=== PATIENT | female | born 1965 | race Caucasian/White ===

== ENCOUNTER → 2016-02-19 | Outpatient (CLI) | payer MEDICARE ==
[~2016-02-19] MED LIST: /ADVA50050 IN; /AMLO25TA PO; /AUGM875TA OR; /ESOM40CA OR; /ESOM40CA PO; /LOR25TA OR; /MOXI40TA PO; ADVAIR INH; ALBU0.084 INH; ALBU17IN2 INH; ALBUTEROL INH; ALDA25TA PO; ALEV220T26 PO; AMBI10TA OR; AMLO10TA OR; ASPI325T PO; ATEN25TA PO; BISA10SU2 PR; BISAC5TA PO; CALC600T7 PO; COLA100C2 OR; CYCL10TA PO; CYCL5TAB PO; FLEXERIL PO; HYDR25TA6 OR; IBUP60TA PO; IPRASOL4 INH; LEVA750T PO; LEVO500T PO; LISI20TA5 OR; LISI40TAB PO; LOPR50TA OR; LOVA20TA2 OR; MAALSUS PO; MEDR4PAK PO; METH75TA PO; METO25TAB PO; MICR10CA PO; MIRA0.12 PO; MIRALEX PO; MIRAPEX PO; MOXI1TAB PO; NEXI40CA PO; NICO21DI4 TD; NYST50SS SS; OXYC10TA97 OR; OXYC1TAB23 PO; OXYC20TA8 PO; PARO40TA PO; PAXI20TA OR; PERC5TAB8 OR; PERC7.5T8 OR; POTA20TA PO; PRAM0.123 PO; PRED10PA PO; PRED10TA2 PO; PRED20TA PO; PRED20TAB PO; PRED5TA PO; PRIN20TA3 OR; PROA1AER INH; PULM0.5S INH; RISE35TA PO; ROBISYP PO; SALINE NASAL SPRAY; SENO8.6T10 PO; SPIR1CAP INH; SYMB16INH INH; TESS100C PO; VITA10005 PO; VITA500019 PO; ZOLP10TA2 PO; atenolol PO
--- NOTE | 2016-02-29 23:45 | ECWPNPC ---
PATIENT NAME: ERWIN GRULLON : 1965 GENDER: FEMALE VISIT DATE: 02/19/2016 DISCHARGE DATE: 02/19/16 1414 VISIT LOCKED DATE TIME: PHYSICIAN: DILLON GONG RESOURCE: DILLON GONG REASON FOR APPOINTMENT 1. ARMS/LEGS HISTORY OF PRESENT ILLNESS HISTORY OF PRESENT ILLNESS: PAIN THE PATIENT DESCRIBES THE PAIN... FALL RISK SCREENING: SCREENING :NO FALLS IN THE PAST YEAR GENERAL: FIGUEROA IS A 50 Y/O FEMALE WITH A LONG HX OF CHRONIC LBP AND LEFT LEG PAIN.HISTORY OF CHRONIC NARCOTIC PAIN MEDICATION USE.CURRENTLY USING PERCOCET 5/325 ONE TAB Q6H PRN PAIN.ONLY USES MEDICATION FOR SEVERE PAIN EPISODES.RATING PAIN 7/10.USES WHEELCHAIR SINCE AUGUST AFTER ANKLE SURGERY IN AUGUST.HAS NEUROPATHY OF LOWER EXTREMITIES.PAIN IS AGGREVATED WITH COLD WEATHER.HAS TRIALED MULTIPLE PAIN MEDICATIONS BOTH NARCOTIC AND NON NARCOTIC AND HAS SIDE EFFECTS OR NO IMPROVEMENT IN PAIN.FINDS PERCOCET 5/325 MOST EFFECTIVE AND USES IT FOR SEVERE PAIN EPISODES ONLY.HERE FOR ONE MOS F/U.CONTINUES TO FIND PERCOCET EFFECTIVE.DENIES [place] EFFECTS.BRINGS IN HER MEDICATION WHICH IS APPRORIATE FOR WHAT WAS DISPENSED.RATING PAIN VAS 7/10. CURRENT MEDICATIONS TAKING ANUSOL-HC 2.5 % CREAM 1 APPLICATION TO AFFECTED AREA RECTAL NEEDED TAKING CALTRATE 600+D 600-400 MG-UNIT TABLET 1 TAB(S) P.O. ONCE A DAY TAKING DOCQLACE 100 MG CAPSULE 1 CAPSULE NEEDED ORALLY TWICE A DAY TAKING ASPIRIN 325 MG TABLET DELAYED RELEASE 1 TABLET ORALLY ONCE A DAY TAKING SPIRONOLACTONE-HCTZ 25-25 MG TABLET 1 TABLET ORALLY ONCE A DAY TAKING AMLODIPINE 10 MG TABLET 1/2 TAB(S) P.O. ONCE A DAY TAKING NEXIUM 40 MG CAPSULE DELAYED RELEASE 1 CAP(S) P.O. ONCE A DAY TAKING CYCLOBENZAPRINE HCL 10 MG TABLET 1 TABLET P.O. THREE TIMES A DAY TAKING ALEVE 220 MG CAPSULE DIRECTED ORALLY TAKING PRAMIPEXOLE DIHYDROCHLORIDE 0.125 MG TABLET 1 TABLET BEFORE BEDTIME ORALLY 1-6 TABS DAILY TAKING AMBIEN 10 MG TABLET 1 TABLET AT BEDTIME NEEDED ORALLY ONCE A DAY TAKING PAROXETINE HCL 40 MG TABLET 1 TABLET IN THE MORNING ORALLY ONCE A DAY TAKING FLUTICASONE PROPIONATE 50 MCG/ACT SUSPENSION USE 1 2 SPRAYS IN EACH NOSTRIL TWO TIMES A DAY NEEDED CONGESTION NASAL TAKING POLYETHYLENE GLYCOL 3350 - POWDER MIX 1 CAPFUL IN 6 OUNCES OF FLUID ONCE DAILY ORAL ONCE DAILY NEEDED TAKING VITAMIN D 5000IU TABLET 2 TAB(S) P.O. ONCE A DAY TAKING PREDNISONE 50 MG TABLET 1 TABLET ORALLY ONCE DAILY NEEDED TAKING INCRUSE ELLIPTA 62.5 MCG/INH AEROSOL POWDER BREATH ACTIVATED INHALE 1 PUFF BY MOUTH ONCE DAILY INHALATION TAKING VENTOLIN HFA 108 (90 BASE) MCG/ACT AEROSOL SOLUTION INHALE TWO PUFFS BY MOUTH EVERY 4 HOURS NEEDED INHALATION TAKING GABAPENTIN 600 MG TABLET 1 TABLET ORALLY THREE TIMES A DAY TAKING IBUPROFEN 600 MG TABLET 1 TABLET ORALLY THREE TIMES A DAY TAKING MAGNESIUM OXIDE 400 MG CAPSULE 1 CAPSULE NEEDED ORALLY TWICE A DAY TAKING OXYCODONE-ACETAMINOPHEN 5-325 MG TABLET 1 TABLET NEEDED P.O. EVERY 6 HRS MDD4 NOT-TAKING BENZONATATE 100 MG CAPSULE 1 CAPSULE NEEDED ORALLY 1 TO 2 DAILY PRN DISCONTINUED DOXYCYCLINE HYCLATE 100 MG CAPSULE 1 CAPSULE ORALLY EVERY 12 HRS MEDICATION LIST REVIEWED AND RECONCILED WITH THE PATIENT PAST MEDICAL HISTORY HTN GERD B/L ANKLE FRACTURES MULTIPLE RIB FRACTURES DEC 2012 TO PRESENT ASPIRATION PNEUMONIA 05/2011 [place] A SHELL ASPIRATION 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 TRINH IN [place]XIETY CHRONIC PAIN IN ARMS AND LEGS VITAMIN D DEFICIENCY HYPOMAGNESEMIA ALLERGIES CEFTIN: HIVES: ALLERGY SOCIAL HISTORY GENERAL: TOBACCO USE ARE YOU A:CURRENT SMOKER HOW MANY CIGARETTES A DAY DO YOU SMOKE?5 OR LESS HOW SOON AFTER YOU WAKE UP DO YOU SMOKE YOUR FIRST CIGARETTE?6-30 MIN HOW OFTEN DO YOU SMOKE CIGARETTES?EVERY DAY PATIENT COUNSELED ON THE DANGERS OF TOBACCO USE AND URGED TO QUIT: PATIENT COUNCELED ON THE IMPORTENCE OF QUITING. PT. NOT READY TO QUIT AT THIS TIME. ARE YOU INTERESTED IN QUITTING?NOT READY TO QUIT LEARNING BARRIERS / SPECIAL NEEDS ORIENTED TO PLAN OF CARE: PATIENT, PAIN MANAGEMENT PATIENT, ORIENTED TO PLAN OF CARE: PATIENT, PAIN MANAGEMENT PATIENT. NEW PATIENT PAIN DIARY TODAY'S VISITNOTES FROM 0-10, WHAT LEVEL IS YOUR PAIN TODAY?0 PAIN CLINIC PFS, CLERGY, PUBLIC HEALTH REFERRALS PFS REFERRAL NEEDED?NO CLERGY REFERRAL NEEDED?NO PUBLIC HEALTH REFERRAL NEEDED?NO WAS THE PROVIDER NOTIFIED OF ANY PERTINENT INFO?NO PFS REFERRAL NEEDED?NO CLERGY REFERRAL NEEDED?NO PUBLIC HEALTH REFERRAL NEEDED?NO WAS THE PROVIDER NOTIFIED OF ANY PERTINENT INFO?NO REVIEW OF SYSTEMS CONSTITUTIONAL: ANY CHANGE IN YOUR MEDICAL CONDITION? NO . RECENT ILLNESS DENIES . CHILLS NO . FEVER NO . WEIGHT LOSS DENIES . INFECTION: DO YOU HAVE NEW INFECTIONS? NO . DO YOU HAVE HISTORY OF MRSA? NO . MUSCULOSKELETAL: ANY NEW PATTERNS OF PAIN OR NUMBNESS? NO . GASTROENTEROLOGY: ANY NEW CHANGE IN BOWEL CONTROL? NO . GENITOURINARY: ANY NEW CHANGE IN BLADDER CONTROL? NO . IS THERE A CHANCE YOU COULD BE ? NO . HEMATOLOGY/LYMPH: DO YOU TAKE ANY BLOOD THINNERS? (FOR EXAMPLE- COUMADIN, PLAVIX, AGGRENOX, PLATEL, PRADAXA, OR XARELTO) NO . WHEN WAS YOUR LAST DOSE? DATE: TIME: . NEUROLOGY: HAVE YOU FALLEN IN THE PAST 6 MONTHS? YES, A FEW WEEKS AGO. NO INJURY . ANY NEW EXTREMITY NUMBNESS OR WEAKNESS? NO . CARDIOLOGY: DO YOU HAVE A PACEMAKER OR DEFIBRILLATOR? NO . CHEST PAIN DENIES . SHORTNESS OF BREATH DENIES . RESPIRATORY: HAVE YOU BEEN SICK IN THE PAST WEEK? NO . FEVER NO . FLU LIKE SYMPTOMS? NO . COUGH NO, DENIES . SHORTNESS OF BREATH DENIES . INTEGUMENTARY: DO YOU HAVE ANY RASHES OR OPEN SORES? NO . ALLERGIC/IMMUNO: ARE YOU ALLERGIC TO SHELLFISH OR IV DYE? NO . ANY NEW ALLERGIES? NO . PSYCHIATRIC: DO YOU HAVE THOUGHTS OF HURTING YOURSELF OR SOMEONE ELSE? NO . ARE YOU ABUSED, NEGLECTED, OR IN AN UNSAFE ENVIRONMENT? NO . ENDOCRINOLOGY: ARE YOU DIABETIC? NO . OTHER: DO YOU NEED ANY PRESCRIPTIONS? YES . IF YES, PLEASE LIST: ____OXYCODONE . ANY NEW PROBLEMS WITH YOUR MEDICATIONS? NO . WHEN DID YOU LAST EAT? ____ . WHEN DID YOU LAST DRINK? ____ . WHAT DID YOU LAST DRINK? ____ . NAME OF PERSON DRIVING YOU HOME? ____ . DO YOU HAVE ANY OTHER QUESTIONS OR CONCERNS NO . REVIEWED BY: PROVIDER: DILLON OLIVERA . VITAL SIGNS WT 135 LBS, HT 59 IN, BMI 27.26 INDEX, BP 128/69 MM HG, HR 95 /MIN, RR 16 /MIN, TEMP 97.4 F, OXYGEN SAT % 94, NA INITIALS TL 1321, REVIEWED BY: TERRIE. EXAMINATION GENERAL EXAMINATION: HEENT:HEAD:, NORMOCEPHALIC, EYES:, EYES NORMAL, NOSE:, NOSE CLEAR, THROAT: NORMAL. LUNGS:LUNG SOUNDS ARE CLEAR. HEART:HEART RATE REGULAR. ABDOMEN:SOFT AND NOT TENDER, NON-DISTENDED. MUSCULOSKELETAL:*. LUMBAR SACRAL SPINEMUSCLE STRENGTH TESTING 3/5 BILATERAL LOWER EXTREMITIES. PALPATION: POSITIVE FOR PAIN OVER L/S SPINE AND OVER L/S PARASPINALS.. THORACIC SPINENEGATIVE FOR PAIN WITH PALPATION OF THORACIC SPINE. NEGATIVE FOR PAIN WITH PALPATION OF THORACIC PARASPINAL. CERVICALNEGATIVE FOR PAIN WITH PALPATION OF CERVICAL SPINE. NEGATIVE FOR PAIN WITH PALPATION OF CERVICAL PARASPINALS. NEGATIVE FOR PAIN WITH PALPATION OF TRAPEZIUS BILAT. SKIN:NORMAL, NO RASH. NEUROLOGIC EXAM:ALERT AND ORIENTED X 3, DTRS 1-2+ IN ALL 4 EXTREMITIES, DENIES UPPER EXTREMETIES SENSORY LOSS.REPORTS NUMBNESS FROM KNEE TO FEET BILAT.. ASSESSMENTS LUMBAGO WITH SCIATICA, LEFT SIDE - M54.42 (PRIMARY) CHRONIC PRESCRIPTION OPIATE USE - Z79.891 TREATMENT LUMBAGO WITH SCIATICA, LEFT SIDE REFILL OXYCODONE-ACETAMINOPHEN TABLET, 5-325 MG, 1 TABLET NEEDED, P.O., EVERY 6 HRS MDD4, 30 DAY(S), 100, REFILLS 0 NOTES: ISTOP REGISTRY REVIEWED AND DEMNOSTRATES COMPLLIANCE. BRINGS IN MEDICATIONS WHICH IS APPROPRIATE FOR WHAT WAS DISPENSED. URINE TOX TODAY, RISKS AND BENEFITS OF NARCOTIC/OPIOD MEDICATIONS WERE REVIEWED WITH PATIENT - THIS INCLUDES BUT IS NOT LIMITED TO RISK OF DEPENDANCE/DEVELOPMENT OF ADDICTION, MOOD DISTURBANCE AND DEPRESSION, OSTEOPOROSIS, HORMONAL AND LABIDAL CHANGES, RESPIRATORY DEPRESSION AND . PATIENT IS ADVISED NOT TO DRIVE WHILE ON THESE MEDICATIONS. PROCEDURE CODES FA211 ESTABILISHED PATIENT [facility] FACILITY CHARGE G8730 PAIN ASSESS POS TOOL F/U PLAN DOC G8427 DOC MEDS VERIFIED W/PT OR RE FOLLOW UP 2 MONTHS ELECTRONICALLY SIGNED BY JAROD SALDANA ON 02/29/2016 AT 01:31 PM EST DISCLAIMER : THIS IS A VISIT SUMMARY EXTRACTED FROM THE [employer] CHART. IT IS NOT A COPY OF THE [employer] PROGRESS NOTE. MTDD
== END ==
LOC: M PAIN 13:20
PROVIDERS: ATTEND Nurse Practitioner Family
DX: Z09 Encounter for follow-up examination after completed treatment for conditions other than malignant neoplasm (principal); G89.29 Other chronic pain; M54.42 Lumbago with sciatica, left side; M79.605 Pain in left leg; I10 Essential (primary) hypertension; K21.9 Gastro-esophageal reflux disease without esophagitis; J44.9 Chronic obstructive pulmonary disease, unspecified; F17.200 Nicotine dependence, unspecified, uncomplicated; M85.80 Other specified disorders of bone density and structure, unspecified site; G25.81 Restless legs syndrome; F41.9 Anxiety disorder, unspecified; E55.9 Vitamin D deficiency, unspecified; Z88.8 Allergy status to other drugs, medicaments and biological substances; Z79.82 Long term (current) use of aspirin; Z79.1 Long term (current) use of non-steroidal anti-inflammatories (NSAID); Z79.891 Long term (current) use of opiate analgesic; Z79.52 Long term (current) use of systemic steroids; Z79.899 Other long term (current) drug therapy; Z87.898 Personal history of other specified conditions; Z87.81 Personal history of (healed) traumatic fracture; Z87.39 Personal history of other diseases of the musculoskeletal system and connective tissue

== ENCOUNTER → 2016-02-22 | Outpatient (CLI) | payer MEDICARE ==
--- NOTE | 2016-02-22 16:41 | REP ---
MRI LUMBAR SPINE WITHOUT CONTRAST: HISTORY: Back pain. Decreased signal intensity on T2 weighted images is present in the L3-4 through L5-S1 intervertebral discs. The discs are decreased in height. These findings are consistent with disc degeneration. There is no disc bulge or herniation at the L1-2 level. The L1 nerves exit the neural foramina without compression. A diffuse disc bulge is present at the L2-3 level. There is minimal compression of the thecal sac. There is hypertrophy of the posterior articulating facets. The L2 nerves exit the neural foramina without compression. A diffuse disc bulge is present at the L3-4 level. There is hypertrophy of the ligamenta flava and posterior articulating facets. These findings produces minimal central canal stenosis. The L3 nerves exit the neural foramina without compression. A diffuse disc bulge is present at the L4-5 level. There is hypertrophy of the ligamenta flava and posterior articulating facets. These finding produce minimal central canal stenosis. The L4 nerves exit the neural foramina without compression. A diffuse disc bulge is present at the L5-S1 level. This abuts the thecal sac. There is hypertrophy of the posterior articulating facets. The L5 nerves exit the neural foramina without compression. The conus medullaris is normal in appearance terminating at the level of the L1-2 intervertebral discs. Normal signal intensity is present in the lumbar vertebral bodies. IMPRESSION: 1. Diffuse disc bulge at the L2-3 level with minimal thecal sac compression. 2. Minimal central canal stenosis at the L3-4 and L4-5 levels secondary to disc bulge, ligamentous and facet hypertrophy. 3. Diffuse disc bulge at the L5-S1 level. This abuts the thecal sac. Signed by Stephen Jordan MD 02/22/2016 04:49 P
== END ==
LOC: M RAD 12:55
PROVIDERS: ATTEND Nurse Practitioner Family
DX: M51.26 Other intervertebral disc displacement, lumbar region (principal); M51.27 Other intervertebral disc displacement, lumbosacral region; M99.53 Intervertebral disc stenosis of neural canal of lumbar region

== ENCOUNTER → 2016-05-18 | Outpatient (CLI) | payer MEDICARE ==
[~2016-05-18] MED LIST changes: -PARO40TA PO; +PARO40TA2 PO
--- NOTE | 2016-05-25 02:05 | ECWPNPC ---
PATIENT NAME: ERWIN GRULLON : 1965 GENDER: FEMALE VISIT DATE: 05/18/2016 DISCHARGE DATE: 05/18/16 1538 VISIT LOCKED DATE TIME: PHYSICIAN: DILLON GONG RESOURCE: DILLON GONG HISTORY OF PRESENT ILLNESS HISTORY OF PRESENT ILLNESS: PAIN THE PATIENT DESCRIBES THE PAIN... FALL RISK SCREENING: SCREENING :NO FALLS IN THE PAST YEAR GENERAL: FIGUEROA IS A 50 Y/O FEMALE WITH A LONG HX OF CHRONIC LBP AND LEFT LEG PAIN.HISTORY OF CHRONIC NARCOTIC PAIN MEDICATION USE.CURRENTLY USING PERCOCET 5/325 ONE TAB Q6H PRN PAIN.ONLY USES MEDICATION FOR SEVERE PAIN EPISODES.RATING PAIN 7/10.USES WHEELCHAIR SINCE AUGUST AFTER ANKLE SURGERY IN AUGUST.ATTENDING PT THAT JUST STARTED TODAY.HAVING INCREASE IN ANKLE PAIN AFTER PT.HAS NEUROPATHY OF LOWER EXTREMITIES.PAIN IS AGGREVATED WITH COLD WEATHER.HAS TRIALED MULTIPLE PAIN MEDICATIONS BOTH NARCOTIC AND NON NARCOTIC AND HAS SIDE EFFECTS OR NO IMPROVEMENT IN PAIN.FINDS PERCOCET 5/325 MOST EFFECTIVE AND USES IT FOR SEVERE PAIN EPISODES ONLY.HERE FOR ONE MOS F/U.CONTINUES TO FIND PERCOCET EFFECTIVE.DENIES [place] EFFECTS.BRINGS IN HER MEDICATION WHICH IS APPRORIATE FOR WHAT WAS DISPENSED. CURRENT MEDICATIONS TAKING ANUSOL-HC 2.5 % CREAM 1 APPLICATION TO AFFECTED AREA RECTAL NEEDED TAKING CALTRATE 600+D 600-400 MG-UNIT TABLET 1 TAB(S) P.O. ONCE A DAY TAKING DOCQLACE 100 MG CAPSULE 1 CAPSULE NEEDED ORALLY TWICE A DAY TAKING ASPIRIN 325 MG TABLET DELAYED RELEASE 1 TABLET ORALLY ONCE A DAY TAKING SPIRONOLACTONE-HCTZ 25-25 MG TABLET 1 TABLET ORALLY ONCE A DAY TAKING AMLODIPINE 10 MG TABLET 1 TAB P.O. ONCE A DAY TAKING CYCLOBENZAPRINE HCL 10 MG TABLET 1 TABLET P.O. THREE TIMES A DAY TAKING AMBIEN 10 MG TABLET 1 TABLET AT BEDTIME NEEDED ORALLY ONCE A DAY TAKING FLUTICASONE PROPIONATE 50 MCG/ACT SUSPENSION USE 1 2 SPRAYS IN EACH NOSTRIL TWO TIMES A DAY NEEDED CONGESTION NASAL TAKING POLYETHYLENE GLYCOL 3350 - POWDER MIX 1 CAPFUL IN 6 OUNCES OF FLUID ONCE DAILY ORAL ONCE DAILY NEEDED TAKING INCRUSE ELLIPTA 62.5 MCG/INH AEROSOL POWDER BREATH ACTIVATED INHALE 1 PUFF BY MOUTH ONCE DAILY INHALATION TAKING VENTOLIN HFA 108 (90 BASE) MCG/ACT AEROSOL SOLUTION INHALE TWO PUFFS BY MOUTH EVERY 4 HOURS NEEDED INHALATION TAKING GABAPENTIN 600 MG TABLET 1 TABLET ORALLY THREE TIMES A DAY TAKING IBUPROFEN 600 MG TABLET 1 TABLET ORALLY THREE TIMES A DAY TAKING NEXIUM 40 MG CAPSULE DELAYED RELEASE 1 CAP(S) P.O. ONCE A DAY TAKING VITAMIN D 5000IU TABLET 1 TABLET P.O. ONCE A DAY TAKING MAGNESIUM OXIDE 400 MG CAPSULE 1 CAPSULE NEEDED ORALLY TWICE A DAY TAKING METOPROLOL TARTRATE 25 MG TABLET 1 TABLET ORALLY TWICE A DAY TAKING PRAMIPEXOLE DIHYDROCHLORIDE 0.125 MG TABLET 3 TABLET ORALLY THREE TIMES A DAY NEEDED FOR RESTLESS LEGS; MDD#9 TAKING OXYCODONE-ACETAMINOPHEN 5-325 MG TABLET 1 TABLET NEEDED P.O. EVERY 6 HRS MDD4 TAKING PAROXETINE HCL 20 MG TABLET 1 TABLET IN THE MORNING ORALLY ONCE A DAY NOT-TAKING ALEVE 220 MG CAPSULE DIRECTED ORALLY MEDICATION LIST REVIEWED AND RECONCILED WITH THE PATIENT PAST MEDICAL HISTORY HTN GERD B/L ANKLE FRACTURES MULTIPLE RIB FRACTURES DEC 2012 TO PRESENT ASPIRATION PNEUMONIA 05/2011 [place] A SHELL ASPIRATION 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 TRINH IN [place]XIETY CHRONIC PAIN IN ARMS AND LEGS VITAMIN D DEFICIENCY HYPOMAGNESEMIA ALLERGIES CEFTIN: HIVES: ALLERGY SOCIAL HISTORY GENERAL: PAIN CLINIC PFS, CLERGY, PUBLIC HEALTH REFERRALS CLERGY REFERRAL NEEDED?NO WAS THE PROVIDER NOTIFIED OF ANY PERTINENT INFO?NO PFS REFERRAL NEEDED?NO PUBLIC HEALTH REFERRAL NEEDED?NO PATIENT: ____. REVIEW OF SYSTEMS CONSTITUTIONAL: ANY CHANGE IN YOUR MEDICAL CONDITION? NO . CHILLS NO . FEVER NO . INFECTION: DO YOU HAVE NEW INFECTIONS? NO . DO YOU HAVE HISTORY OF MRSA? NO . MUSCULOSKELETAL: ANY NEW PATTERNS OF PAIN OR NUMBNESS? NO . GASTROENTEROLOGY: ANY NEW CHANGE IN BOWEL CONTROL? NO . GENITOURINARY: ANY NEW CHANGE IN BLADDER CONTROL? NO . IS THERE A CHANCE YOU COULD BE ? NO . HEMATOLOGY/LYMPH: DO YOU TAKE ANY BLOOD THINNERS? (FOR EXAMPLE- COUMADIN, PLAVIX, AGGRENOX, PLATEL, PRADAXA, OR XARELTO) NO . WHEN WAS YOUR LAST DOSE? DATE: TIME: . NEUROLOGY: HAVE YOU FALLEN IN THE PAST 6 MONTHS? YES-NO INJURY. . ANY NEW EXTREMITY NUMBNESS OR WEAKNESS? NO . CARDIOLOGY: DO YOU HAVE A PACEMAKER OR DEFIBRILLATOR? NO . RESPIRATORY: HAVE YOU BEEN SICK IN THE PAST WEEK? NO . FEVER NO . FLU LIKE SYMPTOMS? NO . COUGH NO . INTEGUMENTARY: DO YOU HAVE ANY RASHES OR OPEN SORES? NO . ALLERGIC/IMMUNO: ARE YOU ALLERGIC TO SHELLFISH OR IV DYE? NO . ANY NEW ALLERGIES? NO . PSYCHIATRIC: DO YOU HAVE THOUGHTS OF HURTING YOURSELF OR SOMEONE ELSE? NO . ARE YOU ABUSED, NEGLECTED, OR IN AN UNSAFE ENVIRONMENT? NO . ENDOCRINOLOGY: ARE YOU DIABETIC? NO . OTHER: DO YOU NEED ANY PRESCRIPTIONS? YES OXYCODONE . IF YES, PLEASE LIST: ____ . ANY NEW PROBLEMS WITH YOUR MEDICATIONS? NO . WHEN DID YOU LAST EAT? ____ . WHEN DID YOU LAST DRINK? ____ . WHAT DID YOU LAST DRINK? ____ . NAME OF PERSON DRIVING YOU HOME? ____ . DO YOU HAVE ANY OTHER QUESTIONS OR CONCERNS NO . REVIEWED BY: PROVIDER: DILLON OLIVERA . VITAL SIGNS WT 135.0 LBS, HT 59 IN, BMI 27.26 INDEX, BP 142/75 MM HG, HR 108 /MIN, RR 18 /MIN, TEMP 97.9 F, OXYGEN SAT % 94%, NA INITIALS TL 1517, REVIEWED BY: MLF. EXAMINATION GENERAL EXAMINATION: HEENT:HEAD:, NORMOCEPHALIC, EYES:, EYES NORMAL, NOSE:, NOSE CLEAR, THROAT: NORMAL. LUNGS:LUNG SOUNDS ARE CLEAR. HEART:HEART RATE REGULAR. ABDOMEN:SOFT AND NOT TENDER, NON-DISTENDED. MUSCULOSKELETAL:*. LUMBAR SACRAL SPINEMUSCLE STRENGTH TESTING 3/5 BILATERAL LOWER EXTREMITIES. PALPATION: POSITIVE FOR PAIN OVER L/S SPINE AND OVER L/S PARASPINALS.. THORACIC SPINENEGATIVE FOR PAIN WITH PALPATION OF THORACIC SPINE. NEGATIVE FOR PAIN WITH PALPATION OF THORACIC PARASPINAL. CERVICALNEGATIVE FOR PAIN WITH PALPATION OF CERVICAL SPINE. NEGATIVE FOR PAIN WITH PALPATION OF CERVICAL PARASPINALS. NEGATIVE FOR PAIN WITH PALPATION OF TRAPEZIUS BILAT. SKIN:NORMAL, NO RASH. NEUROLOGIC EXAM:ALERT AND ORIENTED X 3, DTRS 1-2+ IN ALL 4 EXTREMITIES, DENIES UPPER EXTREMETIES SENSORY LOSS.REPORTS NUMBNESS FROM KNEE TO FEET BILAT.. ASSESSMENTS LUMBAGO WITH SCIATICA, LEFT SIDE - M54.42 (PRIMARY) CHRONIC PRESCRIPTION OPIATE USE - Z79.891 TREATMENT LUMBAGO WITH SCIATICA, LEFT SIDE REFILL OXYCODONE-ACETAMINOPHEN TABLET, 5-325 MG, 1 TABLET NEEDED, P.O., EVERY 6 HRS MDD4, 30 DAY(S), 100, REFILLS 0 START PERCOCET TABLET, 5-325 MG, 1 TABLET NEEDED, ORALLY, EVERY 6 HRS PRN PAIN MDD4, 30 DAY(S), 100, REFILLS 0 NOTES: ISTOP REGISTRY REVIEWED AND DEMNOSTRATES COMPLLIANCE. BRINGS IN MEDICATIONS WHICH IS APPROPRIATE FOR WHAT WAS DISPENSED. RECENT URINE TOXICOLOGY REVIEWED. NO UNAUTHORIZED MEDICATIONS. NO ILLICIT SUBSTANCES AND PRESCRIBED MEDICATIONS WERE PRESENT. , RISKS AND BENEFITS OF NARCOTIC/OPIOD MEDICATIONS WERE REVIEWED WITH PATIENT - THIS INCLUDES BUT IS NOT LIMITED TO RISK OF DEPENDANCE/DEVELOPMENT OF ADDICTION, MOOD DISTURBANCE AND DEPRESSION, OSTEOPOROSIS, HORMONAL AND LABIDAL CHANGES, RESPIRATORY DEPRESSION AND . PATIENT IS ADVISED NOT TO DRIVE WHILE ON THESE MEDICATIONS. PROCEDURE CODES G8730 PAIN ASSESS POS TOOL F/U PLAN DOC G8427 DOC MEDS VERIFIED W/PT OR RE DISPOSITION & COMMUNICATION FOLLOW UP 2 MONTHS ELECTRONICALLY SIGNED BY JAROD SALDANA ON 05/24/2016 AT 03:59 PM EDT DISCLAIMER : THIS IS A VISIT SUMMARY EXTRACTED FROM THE [employer] CHART. IT IS NOT A COPY OF THE [employer] PROGRESS NOTE. EMILY
== END | disposition home or self-care (01) ==
LOC: M PAIN 14:40
PROVIDERS: ATTEND Nurse Practitioner Family
DX: Z09 Encounter for follow-up examination after completed treatment for conditions other than malignant neoplasm (principal); G89.29 Other chronic pain; M54.42 Lumbago with sciatica, left side; I10 Essential (primary) hypertension; K21.9 Gastro-esophageal reflux disease without esophagitis; J44.9 Chronic obstructive pulmonary disease, unspecified; M85.9 Disorder of bone density and structure, unspecified; G25.81 Restless legs syndrome; F41.9 Anxiety disorder, unspecified; E55.9 Vitamin D deficiency, unspecified; Z87.81 Personal history of (healed) traumatic fracture; Z79.899 Other long term (current) drug therapy; Z79.82 Long term (current) use of aspirin; Z79.51 Long term (current) use of inhaled steroids; Z88.1 Allergy status to other antibiotic agents

== ENCOUNTER → 2016-06-15 | Outpatient (CLI) | payer MEDICARE ==
--- NOTE | 2016-06-15 16:35 | REPMRS ---
Patient History The patient states she had a clinical breast exam in Patient is postmenopausal and is nulliparous. Family history of breast cancer in father at age 50 or over. Taking estrogen for 5 years. Digital Woman Screen Mammo: June 15, 2016 - Exam #: [id number] Bilateral CC and MLO view(s) were taken. Technologist: Beth Cormier, Technologist Prior study comparison: January 20, 2015, digital woman screen mammo performed at [facility]. June 28, 2013, digital woman screen mammo performed at [facility]. FINDINGS: The breast tissue is heterogeneously dense. This may lower the sensitivity of mammography. There has been no change in the appearance of the mammogram from the prior studies. There is a moderate amount of residual fibroglandular tissue which is fairly symmetric. There is no interval development of dominant mass, areas of architectural distortion, or clustered microcalcification typical of malignancy. ASSESSMENT: BI-RADS/ACR category 1 mammogram. Negative. Recommendation Routine screening mammogram in 1 year (for women over age 40). This mammogram was interpreted with the aid of an FDA-approved computer-aided dectection system. Electronically Signed By: Rufino Lynn MD 06/15/16 5424
== END ==
LOC: M WHC 14:48
PROVIDERS: ATTEND Nurse Practitioner Family
DX: Z12.31 Encounter for screening mammogram for malignant neoplasm of breast (principal); Z78.0 Asymptomatic menopausal state; Z80.3 Family history of malignant neoplasm of breast; Z92.89 Personal history of other medical treatment; Z92.23 Personal history of estrogen therapy; Z12.39 Encounter for other screening for malignant neoplasm of breast; Z12.12 Encounter for screening for malignant neoplasm of rectum; Z12.4 Encounter for screening for malignant neoplasm of cervix
CPT/HCPCS: 82270; G0101; G0123; G0202

== ENCOUNTER → 2016-06-15 | Outpatient (REF) | payer MEDICARE | LOC: M SFHCWAGY 15:33 | PROVIDERS: ATTEND Nurse Practitioner Family | DX: Z12.4 Encounter for screening for malignant neoplasm of cervix (principal); Z12.12 Encounter for screening for malignant neoplasm of rectum ==

== ENCOUNTER → 2016-07-18 | Outpatient (CLI) | payer MEDICARE ==
--- NOTE | 2016-07-19 02:13 | ECWPNPC ---
PATIENT NAME: ERWIN GRULLON : 1965 GENDER: FEMALE VISIT DATE: 07/18/2016 DISCHARGE DATE: 07/18/16 1451 VISIT LOCKED DATE TIME: PHYSICIAN: DILLON GONG RESOURCE: DILLON GONG REASON FOR APPOINTMENT 1. FOLLOWUP HISTORY OF PRESENT ILLNESS HISTORY OF PRESENT ILLNESS: PAIN THE PATIENT DESCRIBES THE PAIN... FALL RISK SCREENING: SCREENING :NO FALLS IN THE PAST YEAR GENERAL: FIGUEROA IS A 50 Y/O FEMALE WITH A LONG HX OF CHRONIC LBP AND LEFT LEG PAIN.HISTORY OF CHRONIC NARCOTIC PAIN MEDICATION USE.CURRENTLY USING PERCOCET 5/325 ONE TAB Q6H PRN PAIN.ONLY USES MEDICATION FOR SEVERE PAIN EPISODES.RATING PAIN 7/10.USES WHEELCHAIR SINCE AUGUST AFTER ANKLE SURGERY IN AUGUST.ATTENDING PT THAT JUST STARTED TODAY.HAVING INCREASE IN ANKLE PAIN AFTER PT.HAS NEUROPATHY OF LOWER EXTREMITIES.PAIN IS AGGREVATED WITH COLD WEATHER.HAS TRIALED MULTIPLE PAIN MEDICATIONS BOTH NARCOTIC AND NON NARCOTIC AND HAS SIDE EFFECTS OR NO IMPROVEMENT IN PAIN.FINDS PERCOCET 5/325 MOST EFFECTIVE AND USES IT FOR SEVERE PAIN EPISODES ONLY.HERE FOR ONE MOS F/U.CONTINUES TO FIND PERCOCET EFFECTIVE.DENIES [place] EFFECTS.BRINGS IN HER MEDICATION WHICH IS APPRORIATE FOR WHAT WAS DISPENSED. CURRENT MEDICATIONS TAKING ANUSOL-HC 2.5 % CREAM 1 APPLICATION TO AFFECTED AREA RECTAL NEEDED TAKING CALTRATE 600+D 600-400 MG-UNIT TABLET 1 TAB(S) P.O. ONCE A DAY TAKING DOCQLACE 100 MG CAPSULE 1 CAPSULE NEEDED ORALLY TWICE A DAY TAKING AMLODIPINE 10 MG TABLET 1 TAB P.O. ONCE A DAY TAKING CYCLOBENZAPRINE HCL 10 MG TABLET 1 TABLET P.O. THREE TIMES A DAY TAKING FLUTICASONE PROPIONATE 50 MCG/ACT SUSPENSION USE 1 2 SPRAYS IN EACH NOSTRIL TWO TIMES A DAY NEEDED CONGESTION NASAL TAKING INCRUSE ELLIPTA 62.5 MCG/INH AEROSOL POWDER BREATH ACTIVATED INHALE 1 PUFF BY MOUTH ONCE DAILY INHALATION TAKING VENTOLIN HFA 108 (90 BASE) MCG/ACT AEROSOL SOLUTION INHALE TWO PUFFS BY MOUTH EVERY 4 HOURS NEEDED INHALATION TAKING GABAPENTIN 600 MG TABLET 1 TABLET ORALLY THREE TIMES A DAY TAKING IBUPROFEN 600 MG TABLET 1 TABLET ORALLY THREE TIMES A DAY TAKING VITAMIN D 5000IU TABLET 1 TABLET P.O. ONCE A DAY TAKING MAGNESIUM OXIDE 400 MG CAPSULE 1 CAPSULE NEEDED ORALLY TWICE A DAY TAKING PAROXETINE HCL 20 MG TABLET 1 TABLET IN THE MORNING ORALLY ONCE A DAY TAKING PERCOCET 5-325 MG TABLET 1 TABLET NEEDED ORALLY EVERY 6 HRS PRN PAIN MDD4 TAKING PRAMIPEXOLE DIHYDROCHLORIDE 0.125 MG TABLET 3 TABLET ORALLY THREE TIMES A DAY NEEDED FOR RESTLESS LEGS; MDD#9 TAKING AMBIEN 10 MG TABLET 1 TABLET AT BEDTIME NEEDED ORALLY ONCE A DAY TAKING NICODERM CQ 21 MG/24HR PATCH 24 HOUR 1 PATCH TO SKIN TRANSDERMAL ONCE A DAY TAKING NEXIUM 40 MG CAPSULE DELAYED RELEASE 1 CAP ORALLY ONCE A DAY; ARIEL, BRAND NECESSARY TAKING METOPROLOL TARTRATE 25 MG TABLET 1 TABLET ORALLY TWICE A DAY TAKING OXYCODONE-ACETAMINOPHEN 5-325 MG TABLET 1 TABLET NEEDED P.O. 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 TRINH IN [place] ANXIETY CHRONIC PAIN IN ARMS AND LEGS VITAMIN D DEFICIENCY HYPOMAGNESEMIA ALLERGIES CEFTIN: HIVES: ALLERGY SURGICAL HISTORY CARPAL TUNNEL RELEASE CONNOR 06/03/2009 ENDOSCOPY 04/2011 LEFT KNEE REPLACEMENT LEFT FOOT SURGERY TONSILS REMOVED NOSE SURGERY HOSPITALIZATION/MAJOR DIAGNOSTIC PROCEDURE SURG RELATED REVIEW OF SYSTEMS CONSTITUTIONAL: ANY CHANGE IN YOUR MEDICAL CONDITION? NO . CHILLS NO . FEVER NO . INFECTION: DO YOU HAVE NEW INFECTIONS? NO . DO YOU HAVE HISTORY OF MRSA? NO . MUSCULOSKELETAL: ANY NEW PATTERNS OF PAIN OR NUMBNESS? NO . GASTROENTEROLOGY: ANY NEW CHANGE IN BOWEL CONTROL? NO . GENITOURINARY: ANY NEW CHANGE IN BLADDER CONTROL? NO . IS THERE A CHANCE YOU COULD BE ? NO . HEMATOLOGY/LYMPH: DO YOU TAKE ANY BLOOD THINNERS? (FOR EXAMPLE- COUMADIN, PLAVIX, AGGRENOX, PLATEL, PRADAXA, OR XARELTO) NO . WHEN WAS YOUR LAST DOSE? DATE: TIME: . NEUROLOGY: HAVE YOU FALLEN IN THE PAST 6 MONTHS? NO . ANY NEW EXTREMITY NUMBNESS OR WEAKNESS? NO . CARDIOLOGY: DO YOU HAVE A PACEMAKER OR DEFIBRILLATOR? NO . RESPIRATORY: HAVE YOU BEEN SICK IN THE PAST WEEK? YES, PT STATES SHE IS TAKING LEVAQUIN FOR BRONCHITIS . FEVER NO . FLU LIKE SYMPTOMS? NO . COUGH NO . INTEGUMENTARY: DO YOU HAVE ANY RASHES OR OPEN SORES? NO . ALLERGIC/IMMUNO: ARE YOU ALLERGIC TO SHELLFISH OR IV DYE? NO . ANY NEW ALLERGIES? NO . PSYCHIATRIC: DO YOU HAVE THOUGHTS OF HURTING YOURSELF OR SOMEONE ELSE? NO . ARE YOU ABUSED, NEGLECTED, OR IN AN UNSAFE ENVIRONMENT? NO . ENDOCRINOLOGY: ARE YOU DIABETIC? NO . OTHER: DO YOU NEED ANY PRESCRIPTIONS? NO . IF YES, PLEASE LIST: ____ . ANY NEW PROBLEMS WITH YOUR MEDICATIONS? NO . WHEN DID YOU LAST EAT? ____ . WHEN DID YOU LAST DRINK? ____ . WHAT DID YOU LAST DRINK? ____ . NAME OF PERSON DRIVING YOU HOME? ____ . DO YOU HAVE ANY OTHER QUESTIONS OR CONCERNS NO . REVIEWED BY: PROVIDER: DILLON OLIVERA . VITAL SIGNS WT 144.0 LBS, HT 59 IN, BMI 29.08 INDEX, BP 168/79 MM HG, HR 100 /MIN, RR 18 /MIN, TEMP 97.0 F, OXYGEN SAT % 96%, SAFE IN ENV? (Y/N) Y, NA INITIALS TL 1403, REVIEWED BY: EM. EXAMINATION GENERAL EXAMINATION: HEENT:HEAD:, NORMOCEPHALIC, EYES:, EYES NORMAL, NOSE:, NOSE CLEAR, THROAT: NORMAL. LUNGS:LUNG SOUNDS ARE CLEAR. HEART:HEART RATE REGULAR. ABDOMEN:SOFT AND NOT TENDER, NON-DISTENDED. MUSCULOSKELETAL:*. LUMBAR SACRAL SPINEMUSCLE STRENGTH TESTING 3/5 BILATERAL LOWER EXTREMITIES. PALPATION: POSITIVE FOR PAIN OVER L/S SPINE AND OVER L/S PARASPINALS.. THORACIC SPINENEGATIVE FOR PAIN WITH PALPATION OF THORACIC SPINE. NEGATIVE FOR PAIN WITH PALPATION OF THORACIC PARASPINAL. CERVICALNEGATIVE FOR PAIN WITH PALPATION OF CERVICAL SPINE. NEGATIVE FOR PAIN WITH PALPATION OF CERVICAL PARASPINALS. NEGATIVE FOR PAIN WITH PALPATION OF TRAPEZIUS BILAT. SKIN:NORMAL, NO RASH. NEUROLOGIC EXAM:ALERT AND ORIENTED X 3, DTRS 1-2+ IN ALL 4 EXTREMITIES, DENIES UPPER EXTREMETIES SENSORY LOSS.REPORTS NUMBNESS FROM KNEE TO FEET BILAT.. ASSESSMENTS LUMBAGO WITH SCIATICA, LEFT SIDE - M54.42 (PRIMARY) CHRONIC PRESCRIPTION OPIATE USE - Z79.891 TREATMENT LUMBAGO WITH SCIATICA, LEFT SIDE REFILL PERCOCET TABLET, 5-325 MG, 1 TABLET NEEDED, ORALLY, EVERY 6 HRS PRN PAIN MDD4, 30 DAY(S), 100, REFILLS 0 NOTES: ISTOP REGISTRY REVIEWED AND DEMNOSTRATES COMPLLIANCE. BRINGS IN MEDICATIONS WHICH IS APPROPRIATE FOR WHAT WAS DISPENSED. RECENT URINE TOXICOLOGY REVIEWED. NO UNAUTHORIZED MEDICATIONS. NO ILLICIT SUBSTANCES AND PRESCRIBED MEDICATIONS WERE PRESENT. , RISKS AND BENEFITS OF NARCOTIC/OPIOD MEDICATIONS WERE REVIEWED WITH PATIENT - THIS INCLUDES BUT IS NOT LIMITED TO RISK OF DEPENDANCE/DEVELOPMENT OF ADDICTION, MOOD DISTURBANCE AND DEPRESSION, OSTEOPOROSIS, HORMONAL AND LABIDAL CHANGES, RESPIRATORY DEPRESSION AND . PATIENT IS ADVISED NOT TO DRIVE WHILE ON THESE MEDICATIONS. PROCEDURE CODES FA211 ESTABILISHED PATIENT [facility] FACILITY CHARGE G8938 BMI CALC BUT PT NOT ELIG F/U PLAN G8783 BP SCR PRFRM RCMDD DEFIND SCR INTVL G8730 PAIN ASSESS POS TOOL F/U PLAN DOC 3016F PT SCRND UNHLTHY [place] USE 1123F ACP DISCUSS/DSCN MKR DOCD G8427 DOC MEDS VERIFIED W/PT OR RE 3288F FALL RISK ASSESSMENT DOCD 4004F PT TOBACCO SCREEN RCVD TLK DISPOSITION & COMMUNICATION FOLLOW UP 3 MONTHS ELECTRONICALLY SIGNED BY JAROD SALDANA ON 07/18/2016 AT 05:57 PM EDT DISCLAIMER : THIS IS A VISIT SUMMARY EXTRACTED FROM THE [employer] CHART. IT IS NOT A COPY OF THE [employer] PROGRESS NOTE. MTDD
== END | disposition home or self-care (01) ==
LOC: M PAIN 14:00
PROVIDERS: ATTEND Nurse Practitioner Family
DX: G89.29 Other chronic pain (principal); M54.42 Lumbago with sciatica, left side; I10 Essential (primary) hypertension; J44.9 Chronic obstructive pulmonary disease, unspecified; K21.9 Gastro-esophageal reflux disease without esophagitis; K64.8 Other hemorrhoids; F41.9 Anxiety disorder, unspecified; E55.9 Vitamin D deficiency, unspecified; M85.9 Disorder of bone density and structure, unspecified; Z79.899 Other long term (current) drug therapy; F17.200 Nicotine dependence, unspecified, uncomplicated; Z88.1 Allergy status to other antibiotic agents

== ENCOUNTER → 2016-07-27 | Outpatient (CLI) | payer MEDICARE ==
[2016-07-27 13:36] LABS: MEAN CORPUSCULAR HEMOGLOBIN 19.9 pg (27.0-33.0); MEAN CORPUSCULAR HGB CONC 28.2 g/dl (32.0-36.5); MEAN CORPUSCULAR VOLUME 70.8 fl (80.0-96.0); RED CELL DISTRIBUTION WIDTH 18.1 % (11.5-14.5); WHITE BLOOD COUNT 14.8 K/mm3 (4.0-10.0)
== END ==
LOC: M SMT 10:51
PROVIDERS: ATTEND Family Medicine
DX: D64.9 Anemia, unspecified (principal); E11.9 Type 2 diabetes mellitus without complications

== ENCOUNTER → 2016-08-12 | Outpatient (CLI) | payer MEDICARE ==
[~2016-08-12] MED LIST changes: -LEVA750T PO; +LEVA750T7 PO; -PROA1AER INH; +PROAAER10 INH
[2016-08-12 16:59] LABS: ANION GAP 6 MEQ/L (8-16); BLOOD UREA NITROGEN 7 MG/DL (7-18); CALCIUM LEVEL 9.6 MG/DL (8.5-10.1); CARBON DIOXIDE LEVEL 31 MEQ/L (21-32); CHLORIDE LEVEL 105 MEQ/L (98-107); CREATININE FOR GFR 0.57 MG/DL (0.55-1.02); GLOMERULAR FILTRATION RATE > 60.0 (>51); GLUCOSE, FASTING 121 MG/DL (70-105); POTASSIUM SERUM 4.5 MEQ/L (3.5-5.1); SODIUM LEVEL 142 MEQ/L (136-145)
== END ==
LOC: M SMT 10:49
PROVIDERS: ATTEND Family Medicine
DX: E87.6 Hypokalemia (principal)

== ENCOUNTER → 2016-08-18 | Outpatient (REF) | payer MEDICARE | LOC: M SFHCPLAZ 17:07 | PROVIDERS: ATTEND Family Medicine | DX: E11.9 Type 2 diabetes mellitus without complications (principal) ==

== ENCOUNTER → 2016-10-25 | Outpatient (CLI) | payer MEDICARE ==
[2016-10-25 19:28] LABS: MEAN CORPUSCULAR HEMOGLOBIN 19.1 pg (27.0-33.0); MEAN CORPUSCULAR HGB CONC 27.2 g/dl (32.0-36.5); MEAN CORPUSCULAR VOLUME 70.3 fl (80.0-96.0); RED CELL DISTRIBUTION WIDTH 18.4 % (11.5-14.5); RETIC HEMOGLOBIN CONTENT CHr 21.6 PG (24-36); RETICULOCYTE % 2.1 % (0.5-1.5); WHITE BLOOD COUNT 14.6 K/mm3 (4.0-10.0)
[2016-10-25 19:30] LABS: PERCENT SATURATION 3.6 % (13.2-45.0)
== END ==
LOC: M SMT 14:28
PROVIDERS: ATTEND Family Medicine
DX: D50.9 Iron deficiency anemia, unspecified (principal)

== ENCOUNTER → 2016-11-07 | Outpatient (CLI) | payer MEDICARE ==
--- NOTE | 2016-11-08 00:39 | ECWPNPC ---
PATIENT NAME: ERWIN GRULLON : 1965 GENDER: FEMALE VISIT DATE: 11/07/2016 DISCHARGE DATE: 11/07/16 1229 VISIT LOCKED DATE TIME: PHYSICIAN: DILLON GONG RESOURCE: DILLON GONG REASON FOR APPOINTMENT 1. L FOOT HISTORY OF PRESENT ILLNESS HISTORY OF PRESENT ILLNESS: PAIN THE PATIENT DESCRIBES THE PAIN... FALL RISK SCREENING: SCREENING :NO FALLS IN THE PAST YEAR GENERAL: FIGUEROA IS A 50 Y/O FEMALE WITH A LONG HX OF CHRONIC LBP AND LEFT LEG PAIN.HISTORY OF CHRONIC NARCOTIC PAIN MEDICATION USE.CURRENTLY USING PERCOCET 5/325 ONE TAB Q6H PRN PAIN.ONLY USES MEDICATION FOR SEVERE PAIN EPISODES.RATING PAIN 6/10.HAS NEUROPATHY OF LOWER EXTREMITIES.PAIN IS AGGREVATED WITH COLD WEATHER.HAS TRIALED MULTIPLE PAIN MEDICATIONS BOTH NARCOTIC AND NON NARCOTIC AND HAS SIDE EFFECTS OR NO IMPROVEMENT IN PAIN.FINDS PERCOCET 5/325 MOST EFFECTIVE AND USES IT FOR SEVERE PAIN EPISODES ONLY.HERE FOR 3 MOS F/U.DENIES SIDE EFFECTS.BRINGS IN HER MEDICATION WHICH IS APPRORIATE FOR WHAT WAS DISPENSED. CURRENT MEDICATIONS TAKING ATORVASTATIN CALCIUM 40 MG TABLET 1 TABLET ORALLY ONCE A DAY TAKING FLUTICASONE PROPIONATE 50 MCG/ACT SUSPENSION 2 SPRAY IN EACH NOSTRIL NASAL DAILY TAKING ERGOCALCIFEROL 80894 UNIT CAPSULE 1 CAPSULE ORALLY ONCE A WEEK TAKING ASPIRIN 81 MG TABLET CHEWABLE 1 TABLET ORALLY ONCE A DAY TAKING CYCLOBENZAPRINE HCL 10 MG TABLET 1 TABLET ORALLY THREE TIMES A DAY TAKING VENTOLIN HFA 108 (90 BASE) MCG/ACT AEROSOL SOLUTION INHALE TWO PUFFS INHALATION EVERY 4 HRS NEEDED TAKING AMBIEN 10 MG TABLET 1 TABLET AT BEDTIME NEEDED ORALLY ONCE A DAY TAKING GABAPENTIN 600 MG TABLET 1 TABLET ORALLY THREE TIMES A DAY TAKING PAROXETINE HCL 20 MG TABLET 1 TABLET IN THE MORNING ORALLY ONCE A DAY TAKING MAGNESIUM OXIDE 400 MG CAPSULE 1 CAPSULE NEEDED ORALLY TWICE A DAY TAKING ANUSOL-HC 2.5 % CREAM 1 APPLICATION TO AFFECTED AREA RECTAL NEEDED TAKING CALTRATE 600+D 600-400 MG-UNIT TABLET 1 TAB(S) P.O. ONCE A DAY TAKING DOCQLACE 100 MG CAPSULE 1 CAPSULE NEEDED ORALLY TWICE A DAY TAKING IBUPROFEN 600 MG TABLET 1 TABLET ORALLY THREE TIMES A DAY TAKING PRAMIPEXOLE DIHYDROCHLORIDE 0.125 MG TABLET 3 TABLET ORALLY THREE TIMES A DAY NEEDED FOR RESTLESS LEGS; MDD#9 TAKING NEXIUM 40 MG CAPSULE DELAYED RELEASE 1 CAP ORALLY ONCE A DAY; ARIEL, BRAND NECESSARY TAKING METOPROLOL TARTRATE 25 MG TABLET 1 TABLET ORALLY TWICE A DAY TAKING NICODERM CQ 21 MG/24HR PATCH 24 HOUR 1 PATCH TO SKIN TRANSDERMAL ONCE A DAY TAKING OXYCODONE-ACETAMINOPHEN 5-325 MG TABLET 1 TABLET NEEDED P.O. EVERY 6 HRS MDD4 TAKING FERROUS SULFATE 325 (65 FE) MG TABLET DELAYED RELEASE 1 TABLET ORALLY BID NOT-TAKING INCRUSE ELLIPTA 62.5 MCG/INH AEROSOL POWDER BREATH ACTIVATED INHALE 1 PUFF BY MOUTH ONCE DAILY INHALATION NOT-TAKING AMLODIPINE 10 MG TABLET 1 TAB P.O. ONCE A DAY MEDICATION LIST REVIEWED AND RECONCILED WITH THE PATIENT PAST MEDICAL HISTORY HTN GERD B/L ANKLE FRACTURES MULTIPLE RIB FRACTURES DEC 2012 TO PRESENT ASPIRATION PNEUMONIA 05/2011 PEAN[place] A SHELL ASPIRATION 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 TRINH IN [place] ANXIETY CHRONIC PAIN IN ARMS AND LEGS VITAMIN D DEFICIENCY HYPOMAGNESEMIA ASCVD RISK 17%, 06/2016 ALLERGIES CEFTIN: HIVES: ALLERGY SOCIAL HISTORY GENERAL: TOBACCO USE ARE YOU A:CURRENT SMOKER 1/2 A CIGARETTE DAILY ARE YOU INTERESTED IN QUITTING?THINKING ABOUT QUITTING COUNSELED THE PATIENT ON SMOKING CESSATION, EDUCATION [id number]/15/2017 HOW MANY CIGARETTES A DAY DO YOU SMOKE?5 OR LESS HOW SOON AFTER YOU WAKE UP DO YOU SMOKE YOUR FIRST CIGARETTE?AFTER 60 MIN HOW OFTEN DO YOU SMOKE CIGARETTES?SOME DAYS, BUT NOT EVERY DAY PATIENT COUNSELED ON THE DANGERS OF TOBACCO USE AND URGED TO QUIT:11/07/2016 SMOKING CESSATION INFORMATION GIVEN10/28/2016 BMI CARE GOAL FOLLOW-UP ABOVE NORMAL BMI FOLLOW-UPGIVING ENCOURAGEMENT TO EXERCISE ALCOHOL SCREENING DID YOU HAVE A DRINK CONTAINING ALCOHOL IN THE PAST YEAR?YES HOW OFTEN DID YOU HAVE A DRINK CONTAINING ALCOHOL IN THE PAST YEAR?TWO TO FOUR TIMES A MONTH (2 POINTS) HOW MANY DRINKS DID YOU HAVE ON A TYPICAL DAY WHEN YOU WERE DRINKING IN THE PAST YEAR?1 OR 2 (0 POINTS) HOW OFTEN DID YOU HAVE SIX OR MORE DRINKS ON ONE OCCASION IN THE PAST YEAR?NEVER (0 POINTS) POINTS2 INTERPRETATIONNEGATIVE RECREATIONAL DRUG USE DRUG USE?NO CAFFEINE CAFFEINE USE?YES 4 BEVERAGES DAILY SEXUAL HX HAD SEX IN THE LAST 12 MONTHS (VAGINAL, ORAL, OR ANAL)?NO HAVE YOU EVER HAD AN STD?NO HIV / HEP-C SCREENING HIV TEST OFFERED TO PATIENT:YES DATE OFFERED:07/01/2016 TEST ACCEPTED:NO REASON:PATIENT DECLINED HEP-C TEST OFFERED TO PATIENT:YES DATE OFFERED:07/01/2016 TEST ACCEPTED:NO REASON:PATIENT DECLINED MARITAL STATUS: SINGLE. OTHERS AT HOME: NONE. PETS: 2 CATS. 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 REVIEW OF SYSTEMS REVIEWED BY: PROVIDER: DILLON OLIVERA . CONSTITUTIONAL: ANY CHANGE IN YOUR MEDICAL CONDITION? NO . CHILLS NO . FEVER NO . INFECTION: DO YOU HAVE NEW INFECTIONS? NO . DO YOU HAVE HISTORY OF MRSA? NO . MUSCULOSKELETAL: ANY NEW PATTERNS OF PAIN OR NUMBNESS? NO . GASTROENTEROLOGY: ANY NEW CHANGE IN BOWEL CONTROL? NO . GENITOURINARY: ANY NEW CHANGE IN BLADDER CONTROL? NO . IS THERE A CHANCE YOU COULD BE ? NO . HEMATOLOGY/LYMPH: DO YOU TAKE ANY BLOOD THINNERS? (FOR EXAMPLE- COUMADIN, PLAVIX, AGGRENOX, PLATEL, PRADAXA, OR XARELTO) NO . WHEN WAS YOUR LAST DOSE? DATE: TIME: . NEUROLOGY: HAVE YOU FALLEN IN THE PAST 6 MONTHS? YES FELL WHEN GETTING OUT OF TRUCK THIS PAST WEEKEND . ANY NEW EXTREMITY NUMBNESS OR WEAKNESS? NO . CARDIOLOGY: DO YOU HAVE A PACEMAKER OR DEFIBRILLATOR? NO . RESPIRATORY: HAVE YOU BEEN SICK IN THE PAST WEEK? NO . FEVER NO . FLU LIKE SYMPTOMS? NO . COUGH NO . INTEGUMENTARY: DO YOU HAVE ANY RASHES OR OPEN SORES? NO . ALLERGIC/IMMUNO: ARE YOU ALLERGIC TO SHELLFISH OR IV DYE? NO . ANY NEW ALLERGIES? NO . PSYCHIATRIC: DO YOU HAVE THOUGHTS OF HURTING YOURSELF OR SOMEONE ELSE? NO . ARE YOU ABUSED, NEGLECTED, OR IN AN UNSAFE ENVIRONMENT? NO . ENDOCRINOLOGY: ARE YOU DIABETIC? NO . OTHER: DO YOU NEED ANY PRESCRIPTIONS? NO . IF YES, PLEASE LIST: ____ . ANY NEW PROBLEMS WITH YOUR MEDICATIONS? NO . WHEN DID YOU LAST EAT? ____ . WHEN DID YOU LAST DRINK? ____ . WHAT DID YOU LAST DRINK? ____ . NAME OF PERSON DRIVING YOU HOME? ____ . DO YOU HAVE ANY OTHER QUESTIONS OR CONCERNS NO . VITAL SIGNS WT 130 LBS, HT 59 IN, BMI 26.25 INDEX, BP 179/83 MM HG, HR 85 /MIN, RR 18 /MIN, TEMP 97.6 F, OXYGEN SAT % 93%, NA INITIALS SC 11:46. EXAMINATION GENERAL EXAMINATION: HEENT:HEAD:, NORMOCEPHALIC, EYES:, EYES NORMAL, NOSE:, NOSE CLEAR, THROAT: NORMAL. LUNGS:LUNG SOUNDS ARE CLEAR. HEART:HEART RATE REGULAR. ABDOMEN:SOFT AND NOT TENDER, NON-DISTENDED. MUSCULOSKELETAL:*. LUMBAR SACRAL SPINEMUSCLE STRENGTH TESTING 3/5 BILATERAL LOWER EXTREMITIES. PALPATION: POSITIVE FOR PAIN OVER L/S SPINE AND OVER L/S PARASPINALS.. THORACIC SPINENEGATIVE FOR PAIN WITH PALPATION OF THORACIC SPINE. NEGATIVE FOR PAIN WITH PALPATION OF THORACIC PARASPINAL. CERVICALNEGATIVE FOR PAIN WITH PALPATION OF CERVICAL SPINE. NEGATIVE FOR PAIN WITH PALPATION OF CERVICAL PARASPINALS. NEGATIVE FOR PAIN WITH PALPATION OF TRAPEZIUS BILAT. SKIN:NORMAL, NO RASH. NEUROLOGIC EXAM:ALERT AND ORIENTED X 3, DTRS 1-2+ IN ALL 4 EXTREMITIES, DENIES UPPER EXTREMETIES SENSORY LOSS.REPORTS NUMBNESS FROM KNEE TO FEET BILAT.. ASSESSMENTS LUMBAGO WITH SCIATICA, LEFT SIDE - M54.42 (PRIMARY) CHRONIC PRESCRIPTION OPIATE USE - Z79.891 TREATMENT LUMBAGO WITH SCIATICA, LEFT SIDE REFILL OXYCODONE-ACETAMINOPHEN TABLET, 5-325 MG, 1 TABLET NEEDED, P.O., EVERY 6 HRS MDD4, 30 DAY(S), 100, REFILLS 0 NOTES: ISTOP REGISTRY REVIEWED [id number] AND DEMNOSTRATES COMPLLIANCE. BRINGS IN MEDICATIONS WHICH IS APPROPRIATE FOR WHAT WAS DISPENSED. RECENT URINE TOXICOLOGY REVIEWED. NO UNAUTHORIZED MEDICATIONS. NO ILLICIT SUBSTANCES AND PRESCRIBED MEDICATIONS WERE PRESENT. URINE TOX TODAY, RISKS AND BENEFITS OF NARCOTIC/OPIOD MEDICATIONS WERE REVIEWED WITH PATIENT - THIS INCLUDES BUT IS NOT LIMITED TO RISK OF DEPENDANCE/DEVELOPMENT OF ADDICTION, MOOD DISTURBANCE AND DEPRESSION, OSTEOPOROSIS, HORMONAL AND LABIDAL CHANGES, RESPIRATORY DEPRESSION AND . PATIENT IS ADVISED NOT TO DRIVE WHILE ON THESE MEDICATIONS. PROCEDURE CODES FA211 ESTABILISHED PATIENT [facility] CHARGE G8730 PAIN ASSESS POS TOOL F/U PLAN DOC G8427 DOC MEDS VERIFIED W/PT OR RE DISPOSITION & COMMUNICATION FOLLOW UP 3 MONTHS ELECTRONICALLY SIGNED BY JAROD SALDANA ON 11/07/2016 AT 12:47 PM EDT DISCLAIMER : THIS IS A VISIT SUMMARY EXTRACTED FROM THE [employer] CHART. IT IS NOT A COPY OF THE [employer] PROGRESS NOTE. MEILY
== END ==
LOC: M PAIN 13:30
PROVIDERS: ATTEND Nurse Practitioner Family
DX: M54.42 Lumbago with sciatica, left side (principal); G89.29 Other chronic pain; I10 Essential (primary) hypertension; E11.9 Type 2 diabetes mellitus without complications; D50.9 Iron deficiency anemia, unspecified; E78.5 Hyperlipidemia, unspecified; F17.210 Nicotine dependence, cigarettes, uncomplicated; Z79.891 Long term (current) use of opiate analgesic; Z79.899 Other long term (current) drug therapy; Z79.82 Long term (current) use of aspirin; Z88.1 Allergy status to other antibiotic agents

== ENCOUNTER → 2016-11-16 | Outpatient (CLI) | payer MEDICARE ==
[2016-11-16 18:47] LABS: MEAN CORPUSCULAR HEMOGLOBIN 20.9 pg (27.0-33.0); MEAN CORPUSCULAR HGB CONC 26.9 g/dl (32.0-36.5); MEAN CORPUSCULAR VOLUME 77.9 fl (80.0-96.0); WHITE BLOOD COUNT 12.7 10^3/uL (4.0-10.0)
[2016-11-16 18:58] LABS: RED CELL DISTRIBUTION WIDTH 29.9 % (11.5-14.5)
== END ==
LOC: M SMT 14:59
PROVIDERS: ATTEND Family Medicine
DX: D50.9 Iron deficiency anemia, unspecified (principal)

== ENCOUNTER → 2017-01-26 | Outpatient (REF) | payer MEDICARE, MEDICAID ==
[~2017-01-26] MED LIST changes: +FERR1TAB8 PO; +INCR1INH INH
== END ==
LOC: M SFHCPLAZ 11:29
PROVIDERS: ATTEND Family Medicine
DX: E83.42 Hypomagnesemia (principal)

== ENCOUNTER → 2017-01-26 | Outpatient (CLI) | payer MEDICARE, MEDICAID ==
--- NOTE | 2017-01-26 13:13 | REP ---
PA and lateral chest: Comparisons are 02/26/2015 and 02/08/2015 as well as a chest CT of 04/03/2015. There is diffuse pleural thickening along the right posterolateral chest wall, accompanying multiple old right rib fractures. This is unchanged from 02/26/2015 to 02/01/2015. Multiple rib fractures are identified on the comparison CT with adjacent pleural thickening. There are no acute infiltrates or effusions. Cardiac size is normal. The markus, mediastinum, and bony thorax are otherwise unremarkable. Impression: There are no acute infiltrates or effusions. There are no masses. There is chronic pleural thickening along the posterolateral right chest wall, accompanying multiple old right rib fractures. Signed by Rufino Jin MD 01/26/2017 01:05 P
== END ==
LOC: M SMT 11:49
PROVIDERS: ATTEND Family Medicine
DX: R05 Cough (principal)

== ENCOUNTER → 2017-02-02 | Outpatient (REF) | payer MEDICARE | LOC: M LAB REF 17:02 | PROVIDERS: ATTEND Nurse Practitioner Adult Health | DX: J44.1 Chronic obstructive pulmonary disease with (acute) exacerbation (principal) ==

== ENCOUNTER 2017-02-25 12:08 | Emergency (ER) | payer MEDICARE | END 2017-02-25 14:40 | disposition home or self-care (01) | LOC: M ED 12:08 | DX: J95.09 Other tracheostomy complication (principal); J44.9 Chronic obstructive pulmonary disease, unspecified; I10 Essential (primary) hypertension; K21.9 Gastro-esophageal reflux disease without esophagitis; F17.210 Nicotine dependence, cigarettes, uncomplicated; Z79.899 Other long term (current) drug therapy; Z79.82 Long term (current) use of aspirin; Z79.52 Long term (current) use of systemic steroids; Z88.1 Allergy status to other antibiotic agents | CPT/HCPCS: 71046 ==

== ENCOUNTER → 2017-02-28 | Outpatient (CLI) | payer MEDICARE | LOC: M PLARAD 11:34 | DX: C32.9 Malignant neoplasm of larynx, unspecified (principal) | CPT/HCPCS: 78815 ==

== ENCOUNTER 2017-03-06 05:14 | Inpatient (IN) | payer MEDICARE ==
[2017-03-06] MEDS: VANCOMYCIN HCL 1,000 MG, VIAL MATE ADAPTER 1 EACH in D5W 250 ML IV (06:15)
[2017-03-06 06:41] LABS: BASO # 0.1 10^3/uL (0.0-0.2); BASO % 0.3 % (0.0-1.0); EOS # 0.1 10^3/uL (0.0-0.50); EOS % 0.5 % (0.0-3.0); HEMATOCRIT 38.7 % (36.0-47.0); HEMOGLOBIN 12.5 g/dl (12.0-16.0); IMMATURE GRANULOCYTE # 0.1 10^3/uL (0-0); IMMATURE GRANULOCYTE % 0.6 % (0-0); LYMPH # 1.4 10^3/uL (1.5-4.5); MEAN CORPUSCULAR HGB CONC 32.3 g/dl (32.0-36.5); MEAN CORPUSCULAR VOLUME 86.6 fl (80.0-96.0); MONO # 0.8 10^3/uL (0.0-0.8); MONO % 3.8 % (0.0-5.0); NEUTROPHILS # 17.8 10^3/uL (1.8-7.7); NEUTROPHILS % 87.8 % (36.0-66.0); PLATELET COUNT, AUTOMATED 283 10^3/uL (150-450); RED BLOOD COUNT 4.47 10^6/uL (4.00-5.40); RED CELL DISTRIBUTION WIDTH 14.5 % (11.5-14.5); WHITE BLOOD COUNT 20.2 10^3/uL (4.0-10.0)
[2017-03-06 07:00] LABS: ANION GAP 7 MEQ/L (8-16); BLOOD UREA NITROGEN 12 MG/DL (7-18); CARBON DIOXIDE LEVEL 31 MEQ/L (21-32); CHLORIDE LEVEL 101 MEQ/L (98-107); CREATININE FOR GFR 0.73 MG/DL (0.55-1.02); GLOMERULAR FILTRATION RATE > 60.0 (>51); GLUCOSE, FASTING 99 MG/DL (70-105); SODIUM LEVEL 139 MEQ/L (136-145)
[2017-03-06 07:04] LABS: LACTIC ACID SEPSIS PROTOCOL 1.4 MMOL/L (0.4-2.0)
[2017-03-06] MEDS ORDERED: FORMOTEROL FUMARATE 20 MCG/2 ML INHALATION SOLUTION (PERFOROMIST) INH (08:00)
[2017-03-06] MEDS: PERCOCET 5MG/325MG TAB PO (08:20)
[2017-03-06] MEDS: AZITHROMYCIN INJ 500 MG, VIAL MATE ADAPTER 1 EACH in D5W 250 ML IV (08:20)
[2017-03-06] MEDS: ONDANSETRON 4MG/2ML VIAL (J2405) IV (08:20)
[2017-03-06] MEDS: LevoFLOXacin IV 750 MG in APPROPRIATE DILUENT 1 EA IV (09:20)
[2017-03-06] MEDS ORDERED: zolPIDEM TARTRATE 10MG TAB PO (12:30)
[2017-03-06] MEDS: methylPREDNISolone INJ 125 MG/2 ML VIAL (J2930) IV ×2 (13:35→21:42)
[2017-03-06] MEDS: DOCUSATE SOD LIQ 100MG/10ML UDC PO ×2 (13:37→21:42)
[2017-03-06] MEDS: BUDESONIDE 0.5 MG/2 ML INHALATION SUSPENSION INH ×2 (15:00→15:57)
[2017-03-06] MEDS: MEROPENEM INJ 1 GM in APPROPRIATE DILUENT 1 EA IV ×2 (15:15→21:42)
[2017-03-06] MEDS: CYCLOBENZAPRINE 10 MG TAB PO ×2 (15:48→22:09)
[2017-03-06] MEDS: ASPIRIN 81 MG ENTERIC TAB PO (15:48)
[2017-03-06] MEDS: METOPROLOL TART 25 MG TABLET PO ×2 (15:49→22:10)
[2017-03-06] MEDS: PARoxetine 20 MG TAB PO (15:49)
[2017-03-06] MEDS: PANTOPRAZOLE 40MG TAB (PROTONIX) PO (15:49)
[2017-03-06] MEDS: POTASSIUM CHLORIDE 10 MEQ SR TABLET PO ×2 (15:49→22:10)
[2017-03-06] MEDS: PRAMIPEXOLE (MIRAPEX) 0.125 MG TAB PO ×2 (16:00→21:00)
[2017-03-06] MEDS: GABAPENTIN 300 MG CAP PO ×2 (16:44→22:11)
[2017-03-06] MEDS: DILUENT IV ×2 (17:50→23:35)
[2017-03-06] MEDS: TOBRAMYCIN SULF IV ×2 (17:50→23:35)
[2017-03-06] MEDS: KCL 20MEQ IN 0.45NS 1000ML 1,000 ML IV (17:50)
[2017-03-06] MEDS: VANCOMYCIN HCL 500 MG in D5W MINI-BAG PLUS 100 ML IV (18:37)
[2017-03-06] MEDS: NICOTINE 21MG/24HR 1 EA TRANSDERMAL TD (21:45)
[2017-03-07] MEDS: PERCOCET 5MG/325MG TAB PO ×2 (01:11→21:10)
[2017-03-07] MEDS: IPRATROPIUM 0.5MG/ALBUTEROL 2.5MG INH SOL UD 3ML (DUONEB)(J7620) INH ×2 (04:11→07:22)
[2017-03-07 05:51] LABS: HEMATOCRIT 35.2 % (36.0-47.0); HEMOGLOBIN 11.1 g/dl (12.0-16.0); MEAN CORPUSCULAR HEMOGLOBIN 27.4 pg (27.0-33.0); MEAN CORPUSCULAR HGB CONC 31.5 g/dl (32.0-36.5); MEAN CORPUSCULAR VOLUME 86.9 fl (80.0-96.0); PLATELET COUNT, AUTOMATED 236 10^3/uL (150-450); RED BLOOD COUNT 4.05 10^6/uL (4.00-5.40); RED CELL DISTRIBUTION WIDTH 14.1 % (11.5-14.5); WHITE BLOOD COUNT 7.7 10^3/uL (4.0-10.0)
[2017-03-07 06:21] LABS: ANION GAP 9 MEQ/L (8-16); BLOOD UREA NITROGEN 9 MG/DL (7-18); CALCIUM LEVEL 9.3 MG/DL (8.5-10.1); CARBON DIOXIDE LEVEL 30 MEQ/L (21-32); CHLORIDE LEVEL 100 MEQ/L (98-107); CREATININE FOR GFR 0.51 MG/DL (0.55-1.02); GLOMERULAR FILTRATION RATE > 60.0 (>51); GLUCOSE, FASTING 135 MG/DL (70-100); POTASSIUM SERUM 4.3 MEQ/L (3.5-5.1); SODIUM LEVEL 139 MEQ/L (136-145)
[2017-03-07] MEDS: KCL 20MEQ IN 0.45NS 1000ML 1,000 ML IV ×2 (06:35→15:49)
[2017-03-07] MEDS: VANCOMYCIN HCL 500 MG in D5W MINI-BAG PLUS 100 ML IV ×2 (06:35→18:08)
[2017-03-07] MEDS: MEROPENEM INJ 1 GM in APPROPRIATE DILUENT 1 EA IV ×2 (06:35→14:41)
[2017-03-07] MEDS: BUDESONIDE 0.5 MG/2 ML INHALATION SUSPENSION INH ×2 (07:22→20:33)
[2017-03-07] MEDS: POTASSIUM CHLORIDE 10 MEQ SR TABLET PO ×2 (09:00→21:00)
[2017-03-07] MEDS: METOPROLOL TART 25 MG TABLET PO ×2 (09:00→21:00)
[2017-03-07] MEDS: PARoxetine 20 MG TAB PO (09:00)
[2017-03-07] MEDS: GABAPENTIN 300 MG CAP PO ×3 (09:00→21:00)
[2017-03-07] MEDS: ASPIRIN 81 MG ENTERIC TAB PO (09:00)
[2017-03-07] MEDS: PANTOPRAZOLE 40MG TAB (PROTONIX) PO (09:00)
[2017-03-07] MEDS: PRAMIPEXOLE (MIRAPEX) 0.125 MG TAB PO ×3 (09:00→21:00)
[2017-03-07] MEDS: CYCLOBENZAPRINE 10 MG TAB PO ×2 (09:00→21:10)
[2017-03-07] MEDS: DOCUSATE SOD LIQ 100MG/10ML UDC PO ×2 (09:00→21:00)
[2017-03-07] MEDS: TOBRAMYCIN SULF IV ×2 (09:10→15:49)
[2017-03-07] MEDS: DILUENT IV ×2 (09:10→15:49)
[2017-03-07] MEDS: ENOXAPARIN 40 MG/0.4 ML SYRINGE (J1650) SC (09:12)
[2017-03-07] MEDS: methylPREDNISolone INJ 125 MG/2 ML VIAL (J2930) IV (09:12)
[2017-03-07] MEDS: GOLYTELY SOLN 4000 ML BTL PO (14:00)
[2017-03-07 15:49] LABS: TOBRAMYCIN LEVEL TROUGH 0.8 MCG/ML (0.0-2.0)
[2017-03-07 17:59] LABS: VANCOMYCIN LEVEL TROUGH 6.4 UG/ML (10.0-20.0)
[2017-03-07 18:00] LABS: TOBRAMYCIN LEVEL PEAK 3.2 MCG/ML (3.0-10.0)
[2017-03-08] MEDS: NICOTINE 21MG/24HR 1 EA TRANSDERMAL TD ×2 (00:01→20:21)
[2017-03-08] MEDS: MEROPENEM INJ 1 GM in APPROPRIATE DILUENT 1 EA IV ×4 (00:02→23:03)
[2017-03-08] MEDS: methylPREDNISolone INJ 125 MG/2 ML VIAL (J2930) IV ×3 (00:02→20:19)
[2017-03-08] MEDS: DILUENT IV ×3 (00:43→16:03)
[2017-03-08] MEDS: TOBRAMYCIN SULF IV ×3 (00:43→16:03)
[2017-03-08] MEDS: VANCOMYCIN HCL 750 MG, VIAL MATE ADAPTER 1 EACH in D5W 250 ML IV ×2 (02:16→10:39)
[2017-03-08] MEDS: MORPHINE 2 MG/ML 1ML SYRINGE IV ×4 (04:25→20:23)
[2017-03-08] MEDS: KCL 20MEQ IN 0.45NS 1000ML 1,000 ML IV ×2 (06:09→14:07)
[2017-03-08 06:35] LABS: HEMATOCRIT 33.9 % (36.0-47.0); MEAN CORPUSCULAR HEMOGLOBIN 27.6 pg (27.0-33.0); MEAN CORPUSCULAR HGB CONC 32.4 g/dl (32.0-36.5); MEAN CORPUSCULAR VOLUME 85.2 fl (80.0-96.0); PLATELET COUNT, AUTOMATED 264 10^3/uL (150-450); RED BLOOD COUNT 3.98 10^6/uL (4.00-5.40); RED CELL DISTRIBUTION WIDTH 14.2 % (11.5-14.5); WHITE BLOOD COUNT 14.2 10^3/uL (4.0-10.0)
[2017-03-08 06:52] LABS: ANION GAP 6 MEQ/L (8-16); BLOOD UREA NITROGEN 7 MG/DL (7-18); CALCIUM LEVEL 9.4 MG/DL (8.5-10.1); CARBON DIOXIDE LEVEL 31 MEQ/L (21-32); CHLORIDE LEVEL 102 MEQ/L (98-107); CREATININE FOR GFR 0.41 MG/DL (0.55-1.02); GLOMERULAR FILTRATION RATE > 60.0 (>51); GLUCOSE, FASTING 117 MG/DL (70-100); POTASSIUM SERUM 3.9 MEQ/L (3.5-5.1); SODIUM LEVEL 139 MEQ/L (136-145)
[2017-03-08] MEDS ORDERED: PROPOFOL 200 MG/20 ML VIAL As Ordered ×2 (06:53→12:19)
[2017-03-08] MEDS ORDERED: LIDOCAINE 2% MDV 20 ML VIAL As Ordered (06:53)
[2017-03-08] MEDS: BUDESONIDE 0.5 MG/2 ML INHALATION SUSPENSION INH ×2 (08:00→21:24)
[2017-03-08] MEDS: DOCUSATE SOD LIQ 100MG/10ML UDC PO ×2 (09:38→20:19)
[2017-03-08] MEDS: POTASSIUM CHLORIDE 10 MEQ SR TABLET PO ×2 (10:28→20:19)
[2017-03-08] MEDS: CYCLOBENZAPRINE 10 MG TAB PO ×2 (10:28→22:19)
[2017-03-08] MEDS: METOPROLOL TART 25 MG TABLET PO ×2 (10:28→20:21)
[2017-03-08] MEDS: GABAPENTIN 300 MG CAP PO ×3 (10:29→20:20)
[2017-03-08] MEDS: ENOXAPARIN 40 MG/0.4 ML SYRINGE (J1650) SC (10:29)
[2017-03-08] MEDS: PANTOPRAZOLE 40MG TAB (PROTONIX) PO (10:29)
[2017-03-08] MEDS: PRAMIPEXOLE (MIRAPEX) 0.125 MG TAB PO ×3 (10:29→20:19)
[2017-03-08] MEDS: PARoxetine 20 MG TAB PO (10:29)
[2017-03-08] MEDS: ASPIRIN 81 MG ENTERIC TAB PO (10:30)
[2017-03-08] MEDS: PERCOCET 5MG/325MG TAB PO (14:08)
[2017-03-08 17:57] LABS: VANCOMYCIN LEVEL TROUGH 21.2 UG/ML (10.0-20.0)
[2017-03-08] MEDS: IPRATROPIUM 0.5MG/ALBUTEROL 2.5MG INH SOL UD 3ML (DUONEB)(J7620) INH (21:23)
[2017-03-08] MEDS: VANCOMYCIN HCL 500 MG in D5W MINI-BAG PLUS 100 ML IV (23:03)
[2017-03-09] MEDS: TOBRAMYCIN SULF IV ×4 (00:04→23:38)
[2017-03-09] MEDS: DILUENT IV ×4 (00:04→23:38)
[2017-03-09] MEDS: MORPHINE 2 MG/ML 1ML SYRINGE IV (04:49)
[2017-03-09] MEDS: MEROPENEM INJ 1 GM in APPROPRIATE DILUENT 1 EA IV ×3 (06:08→22:11)
[2017-03-09] MEDS: KCL 20MEQ IN 0.45NS 1000ML 1,000 ML IV ×2 (06:23→13:32)
[2017-03-09 06:28] LABS: HEMATOCRIT 35.7 % (36.0-47.0); HEMOGLOBIN 11.7 g/dl (12.0-16.0); MEAN CORPUSCULAR HEMOGLOBIN 28.2 pg (27.0-33.0); MEAN CORPUSCULAR HGB CONC 32.8 g/dl (32.0-36.5); PLATELET COUNT, AUTOMATED 261 10^3/uL (150-450); RED BLOOD COUNT 4.15 10^6/uL (4.00-5.40); RED CELL DISTRIBUTION WIDTH 14.4 % (11.5-14.5); WHITE BLOOD COUNT 9.7 10^3/uL (4.0-10.0)
[2017-03-09 06:47] LABS: ANION GAP 5 MEQ/L (8-16); BLOOD UREA NITROGEN 10 MG/DL (7-18); CALCIUM LEVEL 9.3 MG/DL (8.5-10.1); CARBON DIOXIDE LEVEL 31 MEQ/L (21-32); CHLORIDE LEVEL 103 MEQ/L (98-107); CREATININE FOR GFR 0.39 MG/DL (0.55-1.02); GLOMERULAR FILTRATION RATE > 60.0 (>51); GLUCOSE, FASTING 106 MG/DL (70-100); POTASSIUM SERUM 3.6 MEQ/L (3.5-5.1); SODIUM LEVEL 139 MEQ/L (136-145)
[2017-03-09] MEDS: PERCOCET 5MG/325MG TAB PO ×2 (08:31→15:27)
[2017-03-09] MEDS: methylPREDNISolone INJ 125 MG/2 ML VIAL (J2930) IV (08:31)
[2017-03-09] MEDS: PRAMIPEXOLE (MIRAPEX) 0.125 MG TAB PO ×3 (08:32→20:58)
[2017-03-09] MEDS: ENOXAPARIN 40 MG/0.4 ML SYRINGE (J1650) SC (08:32)
[2017-03-09] MEDS: VANCOMYCIN HCL 500 MG in D5W MINI-BAG PLUS 100 ML IV ×3 (08:32→23:38)
[2017-03-09] MEDS: POTASSIUM CHLORIDE 10 MEQ SR TABLET PO ×2 (08:33→21:00)
[2017-03-09] MEDS: GABAPENTIN 300 MG CAP PO ×3 (08:33→20:59)
[2017-03-09] MEDS: PARoxetine 20 MG TAB PO (08:33)
[2017-03-09] MEDS: DOCUSATE SOD LIQ 100MG/10ML UDC PO ×2 (08:33→20:58)
[2017-03-09] MEDS: CYCLOBENZAPRINE 10 MG TAB PO ×2 (08:34→21:01)
[2017-03-09] MEDS: METOPROLOL TART 25 MG TABLET PO ×2 (08:34→21:00)
[2017-03-09] MEDS: BUDESONIDE 0.5 MG/2 ML INHALATION SUSPENSION INH ×2 (09:05→20:51)
[2017-03-09] MEDS: GOLYTELY SOLN 4000 ML BTL PO (10:49)
[2017-03-09] MEDS: PANTOPRAZOLE 40MG INJ (PROTONIX) (C9113) IV (11:31)
[2017-03-09 15:34] LABS: TOBRAMYCIN LEVEL TROUGH 1.2 MCG/ML (0.0-2.0)
[2017-03-09 17:56] LABS: TOBRAMYCIN LEVEL PEAK 3.4 MCG/ML (3.0-10.0)
[2017-03-09] MEDS: IPRATROPIUM 0.5MG/ALBUTEROL 2.5MG INH SOL UD 3ML (DUONEB)(J7620) INH (20:51)
[2017-03-09] MEDS: predniSONE 20 MG TAB PO (21:00)
[2017-03-09] MEDS: NICOTINE 21MG/24HR 1 EA TRANSDERMAL TD (21:02)
[2017-03-09] MEDS: ONDANSETRON 4MG/2ML VIAL (J2405) IV (21:37)
[2017-03-10] MEDS: MORPHINE 2 MG/ML 1ML SYRINGE IV (03:51)
[2017-03-10 05:54] LABS: HEMATOCRIT 39.2 % (36.0-47.0); HEMOGLOBIN 12.6 g/dl (12.0-16.0); MEAN CORPUSCULAR HGB CONC 32.1 g/dl (32.0-36.5); MEAN CORPUSCULAR VOLUME 87.1 fl (80.0-96.0); PLATELET COUNT, AUTOMATED 233 10^3/uL (150-450); RED CELL DISTRIBUTION WIDTH 14.4 % (11.5-14.5); WHITE BLOOD COUNT 11.7 10^3/uL (4.0-10.0)
[2017-03-10 06:13] LABS: ANION GAP 9 MEQ/L (8-16); BLOOD UREA NITROGEN 12 MG/DL (7-18); CALCIUM LEVEL 8.7 MG/DL (8.5-10.1); CARBON DIOXIDE LEVEL 31 MEQ/L (21-32); CHLORIDE LEVEL 103 MEQ/L (98-107); GLOMERULAR FILTRATION RATE > 60.0 (>51); GLUCOSE, FASTING 84 MG/DL (70-100); POTASSIUM SERUM 3.5 MEQ/L (3.5-5.1); SODIUM LEVEL 143 MEQ/L (136-145); VANCOMYCIN LEVEL TROUGH 15.3 UG/ML (10.0-20.0)
[2017-03-10] MEDS: MEROPENEM INJ 1 GM in APPROPRIATE DILUENT 1 EA IV ×3 (06:16→22:46)
[2017-03-10] MEDS: BUDESONIDE 0.5 MG/2 ML INHALATION SUSPENSION INH ×2 (07:28→20:07)
[2017-03-10] MEDS ORDERED: LIDOCAINE 2% INJ 100 MG/5 ML SDV (FOR ANES.) As Ordered (07:59)
[2017-03-10] MEDS ORDERED: PROPOFOL 200 MG/20 ML VIAL As Ordered (07:59)
[2017-03-10] MEDS: LR 1,000 ML IV (09:00)
[2017-03-10] MEDS ORDERED: fentaNYL 100 MCG/2 ML INJECTION (J3010) IV (09:00)
[2017-03-10] MEDS ORDERED: ONDANSETRON 4MG/2ML VIAL (J2405) IV (09:00)
[2017-03-10] MEDS: PANTOPRAZOLE 40MG INJ (PROTONIX) (C9113) IV (09:47)
[2017-03-10] MEDS: DOCUSATE SOD LIQ 100MG/10ML UDC PO ×2 (09:47→22:45)
[2017-03-10] MEDS: ENOXAPARIN 40 MG/0.4 ML SYRINGE (J1650) SC (09:48)
[2017-03-10] MEDS: VANCOMYCIN HCL 500 MG in D5W MINI-BAG PLUS 100 ML IV (09:48)
[2017-03-10] MEDS: CYCLOBENZAPRINE 10 MG TAB PO ×2 (09:49→22:42)
[2017-03-10] MEDS: GABAPENTIN 300 MG CAP PO ×3 (09:49→22:43)
[2017-03-10] MEDS: POTASSIUM CHLORIDE 10 MEQ SR TABLET PO ×2 (09:49→22:43)
[2017-03-10] MEDS: predniSONE 20 MG TAB PO (09:49)
[2017-03-10] MEDS: PARoxetine 20 MG TAB PO (09:50)
[2017-03-10] MEDS: METOPROLOL TART 25 MG TABLET PO ×2 (09:50→22:45)
[2017-03-10] MEDS: PRAMIPEXOLE (MIRAPEX) 0.125 MG TAB PO ×3 (09:50→22:44)
[2017-03-10] MEDS: KCL 20MEQ IN 0.45NS 1000ML 1,000 ML IV (12:21)
[2017-03-10] MEDS: NICOTINE 21MG/24HR 1 EA TRANSDERMAL TD (22:46)
[2017-03-10] MEDS: PERCOCET 5MG/325MG TAB PO (22:47)
[2017-03-11] MEDS: KCL 20MEQ IN 0.45NS 1000ML 1,000 ML IV ×2 (01:47→16:27)
[2017-03-11] MEDS: MORPHINE 2 MG/ML 1ML SYRINGE IV ×2 (05:12→08:23)
[2017-03-11 05:18] LABS: HEMATOCRIT 38.7 % (36.0-47.0); HEMOGLOBIN 12.2 g/dl (12.0-16.0); MEAN CORPUSCULAR HEMOGLOBIN 27.9 pg (27.0-33.0); MEAN CORPUSCULAR HGB CONC 31.5 g/dl (32.0-36.5); MEAN CORPUSCULAR VOLUME 88.6 fl (80.0-96.0); PLATELET COUNT, AUTOMATED 224 10^3/uL (150-450); RED BLOOD COUNT 4.37 10^6/uL (4.00-5.40); RED CELL DISTRIBUTION WIDTH 14.6 % (11.5-14.5)
[2017-03-11 05:40] LABS: ANION GAP 5 MEQ/L (8-16); BLOOD UREA NITROGEN 12 MG/DL (7-18); CALCIUM LEVEL 8.7 MG/DL (8.5-10.1); CARBON DIOXIDE LEVEL 35 MEQ/L (21-32); CHLORIDE LEVEL 103 MEQ/L (98-107); CREATININE FOR GFR 0.56 MG/DL (0.55-1.02); GLOMERULAR FILTRATION RATE > 60.0 (>51); GLUCOSE, FASTING 89 MG/DL (70-100); POTASSIUM SERUM 3.5 MEQ/L (3.5-5.1); SODIUM LEVEL 143 MEQ/L (136-145)
[2017-03-11] MEDS: MEROPENEM INJ 1 GM in APPROPRIATE DILUENT 1 EA IV ×3 (06:56→23:00)
[2017-03-11] MEDS: POTASSIUM CHLORIDE 10 MEQ SR TABLET PO ×2 (08:20→21:54)
[2017-03-11] MEDS: PRAMIPEXOLE (MIRAPEX) 0.125 MG TAB PO ×3 (08:20→21:53)
[2017-03-11] MEDS: PARoxetine 20 MG TAB PO (08:20)
[2017-03-11] MEDS: CYCLOBENZAPRINE 10 MG TAB PO ×2 (08:21→21:54)
[2017-03-11] MEDS: GABAPENTIN 300 MG CAP PO ×3 (08:21→21:55)
[2017-03-11] MEDS: predniSONE 20 MG TAB PO (08:21)
[2017-03-11] MEDS: METOPROLOL TART 25 MG TABLET PO ×2 (08:22→21:55)
[2017-03-11] MEDS: ENOXAPARIN 40 MG/0.4 ML SYRINGE (J1650) SC (08:22)
[2017-03-11] MEDS: PANTOPRAZOLE 40MG INJ (PROTONIX) (C9113) IV (08:22)
[2017-03-11] MEDS: DOCUSATE SOD LIQ 100MG/10ML UDC PO ×2 (08:22→21:00)
[2017-03-11] MEDS: BUDESONIDE 0.5 MG/2 ML INHALATION SUSPENSION INH ×2 (08:49→21:23)
[2017-03-11] MEDS: PERCOCET 5MG/325MG TAB PO ×2 (14:24→21:54)
[2017-03-11] MEDS: NICOTINE 21MG/24HR 1 EA TRANSDERMAL TD (22:09)
[2017-03-12] MEDS: MORPHINE 2 MG/ML 1ML SYRINGE IV ×2 (03:38→06:41)
[2017-03-12] MEDS: KCL 20MEQ IN 0.45NS 1000ML 1,000 ML IV (03:42)
[2017-03-12 05:05] LABS: HEMATOCRIT 34.1 % (36.0-47.0); HEMOGLOBIN 10.8 g/dl (12.0-16.0); MEAN CORPUSCULAR HGB CONC 31.7 g/dl (32.0-36.5); MEAN CORPUSCULAR VOLUME 88.3 fl (80.0-96.0); PLATELET COUNT, AUTOMATED 168 10^3/uL (150-450); RED BLOOD COUNT 3.86 10^6/uL (4.00-5.40); RED CELL DISTRIBUTION WIDTH 14.6 % (11.5-14.5); WHITE BLOOD COUNT 6.8 10^3/uL (4.0-10.0)
[2017-03-12 05:25] LABS: ANION GAP 2 MEQ/L (8-16); BLOOD UREA NITROGEN 9 MG/DL (7-18); CALCIUM LEVEL 8.3 MG/DL (8.5-10.1); CARBON DIOXIDE LEVEL 37 MEQ/L (21-32); CHLORIDE LEVEL 105 MEQ/L (98-107); CREATININE FOR GFR 0.28 MG/DL (0.55-1.02); GLOMERULAR FILTRATION RATE > 60.0 (>51); GLUCOSE, FASTING 93 MG/DL (70-100); POTASSIUM SERUM 3.4 MEQ/L (3.5-5.1); SODIUM LEVEL 144 MEQ/L (136-145)
[2017-03-12] MEDS: BUDESONIDE 0.5 MG/2 ML INHALATION SUSPENSION INH (06:39)
[2017-03-12] MEDS: MEROPENEM INJ 1 GM in APPROPRIATE DILUENT 1 EA IV (06:42)
[2017-03-12] MEDS: PANTOPRAZOLE 40MG INJ (PROTONIX) (C9113) IV (08:43)
[2017-03-12] MEDS: ENOXAPARIN 40 MG/0.4 ML SYRINGE (J1650) SC (08:44)
[2017-03-12] MEDS: POTASSIUM CHLORIDE 10 MEQ SR TABLET PO (08:44)
[2017-03-12] MEDS: CYCLOBENZAPRINE 10 MG TAB PO (08:44)
[2017-03-12] MEDS: PRAMIPEXOLE (MIRAPEX) 0.125 MG TAB PO (08:45)
[2017-03-12] MEDS: METOPROLOL TART 25 MG TABLET PO (08:45)
[2017-03-12] MEDS: predniSONE 20 MG TAB PO (08:46)
[2017-03-12] MEDS: PARoxetine 20 MG TAB PO (08:46)
[2017-03-12] MEDS: GABAPENTIN 300 MG CAP PO (08:46)
== END 2017-03-12 13:10 | disposition home health service (06) | DRG 177 ==
LOC: M ED 05:14 → M ED INP 11:54 → M PCU 16:31
PROC: 0DH68UZ Insertion of Feeding Device into Stomach, Via Natural or Artificial Opening Endoscopic (ICD-10-PCS; principal; 2017-03-08 11:50)
PROC: 0DBL8ZX Excision of Transverse Colon, Via Natural or Artificial Opening Endoscopic, Diagnostic (ICD-10-PCS; 2017-03-08 11:50)
DX: J69.0 Pneumonitis due to inhalation of food and vomit (principal); E43 Unspecified severe protein-calorie malnutrition; J18.9 Pneumonia, unspecified organism; C32.3 Malignant neoplasm of laryngeal cartilage; I10 Essential (primary) hypertension; J44.9 Chronic obstructive pulmonary disease, unspecified; M81.0 Age-related osteoporosis without current pathological fracture; K21.9 Gastro-esophageal reflux disease without esophagitis; M54.9 Dorsalgia, unspecified; K63.89 Other specified diseases of intestine; R13.10 Dysphagia, unspecified; D12.3 Benign neoplasm of transverse colon; G89.4 Chronic pain syndrome; G47.9 Sleep disorder, unspecified; Z79.82 Long term (current) use of aspirin; Z79.899 Other long term (current) drug therapy; Z87.891 Personal history of nicotine dependence; Z93.0 Tracheostomy status; Y95 Nosocomial condition; Z88.1 Allergy status to other antibiotic agents

== ENCOUNTER → 2017-03-15 | Outpatient (REF) | payer MEDICARE, MEDICAID ==
[2017-03-15 15:59] LABS: HEMATOCRIT 39.1 % (36.0-47.0); HEMOGLOBIN 12.4 g/dl (12.0-16.0); MEAN CORPUSCULAR HEMOGLOBIN 28.1 pg (27.0-33.0); MEAN CORPUSCULAR HGB CONC 31.7 g/dl (32.0-36.5); MEAN CORPUSCULAR VOLUME 88.5 fl (80.0-96.0); PLATELET COUNT, AUTOMATED 220 10^3/uL (150-450); RED BLOOD COUNT 4.42 10^6/uL (4.00-5.40); RED CELL DISTRIBUTION WIDTH 14.9 % (11.5-14.5); WHITE BLOOD COUNT 12.9 10^3/uL (4.0-10.0)
[2017-03-15 16:07] LABS: MAGNESIUM LEVEL 2.5 MG/DL (1.8-2.4)
== END ==
LOC: M SFHCPLAZ 13:47
DX: D50.8 Other iron deficiency anemias (principal); E83.42 Hypomagnesemia
CPT/HCPCS: 83735

== ENCOUNTER → 2017-03-17 | Outpatient (CLI) | payer MEDICARE, MEDICAID | LOC: M PAIN 10:00 | DX: G89.29 Other chronic pain (principal); M54.42 Lumbago with sciatica, left side; G25.81 Restless legs syndrome; I10 Essential (primary) hypertension; K21.9 Gastro-esophageal reflux disease without esophagitis; J44.9 Chronic obstructive pulmonary disease, unspecified; M85.80 Other specified disorders of bone density and structure, unspecified site; K64.8 Other hemorrhoids; F41.9 Anxiety disorder, unspecified; E55.9 Vitamin D deficiency, unspecified; Z96.642 Presence of left artificial hip joint; Z87.891 Personal history of nicotine dependence; Z88.8 Allergy status to other drugs, medicaments and biological substances; Z93.0 Tracheostomy status; Z93.1 Gastrostomy status; Z79.52 Long term (current) use of systemic steroids; Z79.899 Other long term (current) drug therapy | CPT/HCPCS: G0463 ==

== ENCOUNTER → 2017-04-18 | Outpatient (REF) | payer MEDICARE, MEDICAID ==
[2017-04-18 14:01] LABS: ANION GAP 5 MEQ/L (8-16); BLOOD UREA NITROGEN 11 MG/DL (7-18); CALCIUM LEVEL 8.6 MG/DL (8.5-10.1); CARBON DIOXIDE LEVEL 36 MEQ/L (21-32); CHLORIDE LEVEL 97 MEQ/L (98-107); CREATININE FOR GFR 0.39 MG/DL (0.55-1.30); GLOMERULAR FILTRATION RATE > 60.0 (>51); GLUCOSE, FASTING 77 MG/DL (70-100); POTASSIUM SERUM 4.4 MEQ/L (3.5-5.1); SODIUM LEVEL 138 MEQ/L (136-145)
== END ==
LOC: M SFHCPLAZ 11:57
DX: E87.5 Hyperkalemia (principal)
CPT/HCPCS: 80048

== ENCOUNTER → 2017-05-15 | Outpatient (CLI) | payer MEDICARE, MEDICAID | LOC: M PAIN 13:15 | DX: M54.42 Lumbago with sciatica, left side (principal); G89.29 Other chronic pain; G25.81 Restless legs syndrome; I10 Essential (primary) hypertension; J44.9 Chronic obstructive pulmonary disease, unspecified; M85.80 Other specified disorders of bone density and structure, unspecified site; F41.9 Anxiety disorder, unspecified; R73.03 Prediabetes; Z79.82 Long term (current) use of aspirin; Z79.891 Long term (current) use of opiate analgesic; Z79.899 Other long term (current) drug therapy; Z88.8 Allergy status to other drugs, medicaments and biological substances; Z96.652 Presence of left artificial knee joint; Z85.21 Personal history of malignant neoplasm of larynx; Z87.891 Personal history of nicotine dependence | CPT/HCPCS: G0463 ==

== ENCOUNTER → 2017-07-17 | Outpatient (CLI) | payer MEDICARE, MEDICAID | LOC: M PAIN 13:30 | DX: M54.42 Lumbago with sciatica, left side (principal); G89.29 Other chronic pain; I10 Essential (primary) hypertension; J44.9 Chronic obstructive pulmonary disease, unspecified; G25.81 Restless legs syndrome; F41.9 Anxiety disorder, unspecified; E83.42 Hypomagnesemia; R73.03 Prediabetes; M85.80 Other specified disorders of bone density and structure, unspecified site; Z79.82 Long term (current) use of aspirin; Z79.899 Other long term (current) drug therapy; Z96.652 Presence of left artificial knee joint; Z79.891 Long term (current) use of opiate analgesic | CPT/HCPCS: G0463 ==

== ENCOUNTER → 2017-07-19 | Outpatient (CLI) | payer MEDICARE, MEDICAID | LOC: M SMT 14:25 | DX: M16.12 Unilateral primary osteoarthritis, left hip (principal); M25.752 Osteophyte, left hip; M25.552 Pain in left hip | CPT/HCPCS: 73502; G0463 ==

== ENCOUNTER → 2017-11-01 | Outpatient (REF) | payer MEDICARE, MEDICAID ==
[2017-11-03 13:06] LABS: ANION GAP 9 MEQ/L (8-16); BLOOD UREA NITROGEN 9 MG/DL (7-18); CALCIUM LEVEL 9.3 MG/DL (8.5-10.1); CARBON DIOXIDE LEVEL 30 MEQ/L (21-32); CHLORIDE LEVEL 91 MEQ/L (98-107); CHOLESTEROL LEVEL 202 MG/DL (<200); CHOLESTEROL RISK RATIO 3.607 (<5); CREATININE FOR GFR 0.51 MG/DL (0.55-1.30); GLOMERULAR FILTRATION RATE > 60.0 (>51); GLUCOSE, FASTING 84 MG/DL (70-100); HDL CHOLESTEROL 56 MG/DL (>40); LDL CHOLESTEROL 119 MG/DL (<100); NON-HDL-C 146 MG/DL; POTASSIUM SERUM 5.5 MEQ/L (3.5-5.1); SODIUM LEVEL 130 MEQ/L (136-145); TRIGLYCERIDES LEVEL 137 MG/DL (<150)
[2017-11-03 14:24] LABS: CREATININE, URINE 48.2 MG/DL; MALB URINE SIEMENS < 5.0 MG/L
[2017-11-03 14:25] LABS: ESTIMATED AVERAGE GLUCOSE 111 MG/DL (60-110); HEMOGLOBIN A1c 5.5 %
[2017-11-03 14:27] LABS: MAU/CREAT RATIO 10.4 MCG/MG (0.0-30.0)
== END ==
LOC: M SFHCPLAZ 16:59
DX: E11.9 Type 2 diabetes mellitus without complications (principal); Z13.220 Encounter for screening for lipoid disorders; I10 Essential (primary) hypertension
CPT/HCPCS: 83036

== ENCOUNTER → 2017-11-20 | Outpatient (REF) | payer MEDICARE, MEDICAID ==
[2017-11-20 18:32] LABS: ANION GAP 9 MEQ/L (8-16); BLOOD UREA NITROGEN 8 MG/DL (7-18); CALCIUM LEVEL 9.5 MG/DL (8.5-10.1); CARBON DIOXIDE LEVEL 32 MEQ/L (21-32); CHLORIDE LEVEL 92 MEQ/L (98-107); CREATININE FOR GFR 0.56 MG/DL (0.55-1.30); GLOMERULAR FILTRATION RATE > 60.0 (>51); GLUCOSE, FASTING 108 MG/DL (70-100); POTASSIUM SERUM 4.7 MEQ/L (3.5-5.1); SODIUM LEVEL 133 MEQ/L (136-145)
== END ==
LOC: M SFHCPLAZ 15:25
DX: E87.5 Hyperkalemia (principal)
CPT/HCPCS: 80048

== ENCOUNTER → 2017-11-23 | Outpatient (CLI) | payer MEDICARE, MEDICAID | LOC: M PAIN 13:15 | DX: M54.42 Lumbago with sciatica, left side (principal); G89.29 Other chronic pain; I10 Essential (primary) hypertension; J44.9 Chronic obstructive pulmonary disease, unspecified; M85.80 Other specified disorders of bone density and structure, unspecified site; G25.81 Restless legs syndrome; F41.9 Anxiety disorder, unspecified; R73.03 Prediabetes; Z79.82 Long term (current) use of aspirin; Z79.899 Other long term (current) drug therapy; Z88.8 Allergy status to other drugs, medicaments and biological substances; Z96.652 Presence of left artificial knee joint; Z90.02 Acquired absence of larynx; Z86.2 Personal history of diseases of the blood and blood-forming organs and certain disorders involving the immune mechanism; Z85.21 Personal history of malignant neoplasm of larynx; Z87.891 Personal history of nicotine dependence; E87.1 Hypo-osmolality and hyponatremia | CPT/HCPCS: G0463 ==

== ENCOUNTER → 2017-11-23 | Outpatient (REF) | payer MEDICARE, MEDICAID | LOC: M SFHCPLAZ 11:54 | DX: E87.1 Hypo-osmolality and hyponatremia (principal) ==

== ENCOUNTER → 2017-12-14 | Outpatient (CLI) | payer MEDICARE, MEDICAID | LOC: M WHC 13:39 | DX: Z12.31 Encounter for screening mammogram for malignant neoplasm of breast (principal); Z78.0 Asymptomatic menopausal state; Z12.4 Encounter for screening for malignant neoplasm of cervix; Z85.3 Personal history of malignant neoplasm of breast; Z92.21 Personal history of antineoplastic chemotherapy; Z92.23 Personal history of estrogen therapy; Z92.89 Personal history of other medical treatment; Z80.3 Family history of malignant neoplasm of breast | CPT/HCPCS: 77067; G0123 ==

== ENCOUNTER → 2017-12-14 | Outpatient (REF) | payer MEDICARE, MEDICAID | LOC: M SFHCWAGY 14:15 | DX: Z12.4 Encounter for screening for malignant neoplasm of cervix (principal) ==

== ENCOUNTER → 2017-12-15 | Outpatient (REF) | payer MEDICARE, MEDICAID | LOC: M SFHCWAGY 11:37 | DX: Z12.4 Encounter for screening for malignant neoplasm of cervix (principal); N88.8 Other specified noninflammatory disorders of cervix uteri | CPT/HCPCS: G0123 ==

== ENCOUNTER 2017-12-26 15:54 | Emergency (ER) | payer MEDICARE, MEDICAID ==
[2017-12-26 18:13] LABS: BASO % 0.3 % (0.0-1.0); EOS # 0.3 10^3/uL (0.0-0.50); EOS % 3.8 % (0.0-3.0); HEMATOCRIT 38.2 % (36.0-47.0); HEMOGLOBIN 12.5 g/dl (12.0-15.5); IMMATURE GRANULOCYTE % 0.4 % (0-3.0); LYMPH # 0.9 10^3/uL (1.5-4.5); LYMPH % 11.8 % (24.0-44.0); MEAN CORPUSCULAR HEMOGLOBIN 28.4 pg (27.0-33.0); MEAN CORPUSCULAR HGB CONC 32.7 g/dl (32.0-36.5); MEAN CORPUSCULAR VOLUME 86.8 fl (80.0-96.0); MONO # 0.7 10^3/uL (0.0-0.8); MONO % 9.4 % (0.0-5.0); NEUTROPHILS # 5.5 10^3/uL (1.8-7.7); NEUTROPHILS % 74.3 % (36.0-66.0); PLATELET COUNT, AUTOMATED 234 10^3/uL (150-450); RED CELL DISTRIBUTION WIDTH 14.2 % (11.5-14.5); WHITE BLOOD COUNT 7.4 10^3/uL (4.0-10.0)
[2017-12-26] MEDS ORDERED: AZITHROMYCIN SUSP 200MG/5ML 30ML BOTTLE (FOR INPATIENT ORDERS) PO (19:05)
[2017-12-26] MEDS: AZITHROMYCIN 200MG/5ML *ED ONLY* ORAL SYRINGE PO (19:09)
== END 2017-12-26 19:28 | disposition home or self-care (01) ==
LOC: M ED 15:54
DX: J44.0 Chronic obstructive pulmonary disease with (acute) lower respiratory infection (principal); R06.00 Dyspnea, unspecified; Z93.0 Tracheostomy status; Z85.818 Personal history of malignant neoplasm of other sites of lip, oral cavity, and pharynx; Z85.21 Personal history of malignant neoplasm of larynx; I10 Essential (primary) hypertension; E78.5 Hyperlipidemia, unspecified; J98.4 Other disorders of lung; Z88.1 Allergy status to other antibiotic agents; Z79.899 Other long term (current) drug therapy; Z79.82 Long term (current) use of aspirin
CPT/HCPCS: 71046

== ENCOUNTER → 2018-01-25 | Outpatient (REF) | payer MEDICARE, MEDICAID ==
[2018-01-25 16:08] LABS: ALBUMIN 3.7 GM/DL (3.2-5.2); ALBUMIN/GLOBULIN RATIO 1.03 (1.00-1.93); ALKALINE PHOSPHATASE 99 U/L (45-117); ALT/SGPT 29 U/L (12-78); ANION GAP 6 MEQ/L (8-16); AST/SGOT 19 U/L (7-37); BILIRUBIN,TOTAL 0.5 MG/DL (0.2-1.0); BLOOD UREA NITROGEN 10 MG/DL (7-18); CALCIUM LEVEL 8.9 MG/DL (8.5-10.1); CARBON DIOXIDE LEVEL 31 MEQ/L (21-32); CHLORIDE LEVEL 95 MEQ/L (98-107); CREATININE FOR GFR 0.59 MG/DL (0.55-1.30); GLOMERULAR FILTRATION RATE > 60.0 (>51); GLUCOSE, FASTING 103 MG/DL (70-100); POTASSIUM SERUM 3.7 MEQ/L (3.5-5.1); SODIUM LEVEL 132 MEQ/L (136-145); TOTAL PROTEIN 7.3 GM/DL (6.4-8.2)
[2018-01-25 16:15] LABS: TOTAL 25(OH) VITAMIN D 25.1 NG/ML (30.0-100.0)
== END ==
LOC: M SFHCPLAZ 14:45
DX: I10 Essential (primary) hypertension (principal); E87.1 Hypo-osmolality and hyponatremia; E55.9 Vitamin D deficiency, unspecified
CPT/HCPCS: 80053

== ENCOUNTER 2018-02-27 11:19 | Emergency (ER) | payer MEDICARE, MEDICAID ==
[~2018-02-27] VITALS: Ht 149.9 cm; Wt 54.5 kg
[~2018-02-27 11:19] MED LIST changes: -ALDA25TA PO; +AMLO10TA5 PO; +ASPI1TAB PO; +ASPI81TAEC PO; +ATOR40TA75 PO; +AZIT200S30 PO; +BACT20SS PO; +BUDE0.5S6 INH; +CARV3.12 PO; +DOCU10ELUD PO; +FLON1SPR; +FLUC10TA PO; +GABA600T4 PO; +IPRA0.00 INH; -IPRASOL4 INH; +JEVILIQ10 PO; +KLOR10TA76 PO; +KLOR20TA42 PO; +NICO21PAT TD; +PARO20TA3 PO; +PERF20NE2 INH; +POTA20PW GT; -POTA20TA PO; +SPIR1TAB34 PO
[2018-02-27] MEDS ORDERED: IPRATROPIUM 0.5MG/ALBUTEROL 2.5MG INH SOL UD 3ML (DUONEB)(J7620) NEB ONE (11:30)
[2018-02-27] MEDS ORDERED: ALBUTEROL SULFATE 2.5 MG/0.5 ML INH NEB SOLN INH ONE (11:30)
[2018-02-27 11:52] LABS: BASO # 0.1 10^3/uL (0.0-0.2); BASO % 0.7 % (0.0-1.0); EOS # 0.5 10^3/uL (0.0-0.50); EOS % 6.1 % (0.0-3.0); HEMATOCRIT 34.8 % (36.0-47.0); HEMOGLOBIN 11.6 g/dl (12.0-15.5); LYMPH # 0.8 10^3/uL (1.5-4.5); LYMPH % 8.5 % (24.0-44.0); MEAN CORPUSCULAR HEMOGLOBIN 28.8 pg (27.0-33.0); MEAN CORPUSCULAR HGB CONC 33.3 g/dl (32.0-36.5); MEAN CORPUSCULAR VOLUME 86.4 fl (80.0-96.0); MONO # 0.8 10^3/uL (0.0-0.8); MONO % 8.7 % (0.0-5.0); NEUTROPHILS # 6.7 10^3/uL (1.8-7.7); NEUTROPHILS % 75.4 % (36.0-66.0); PLATELET COUNT, AUTOMATED 229 10^3/uL (150-450); RED BLOOD COUNT 4.03 10^6/uL (4.00-5.40); WHITE BLOOD COUNT 8.9 10^3/uL (4.0-10.0)
[2018-02-27 11:58] LABS: ABG BASE EXCESS 5.9 (-2.0-2.0); ABG HCO3 31.8 MEQ/L (22.0-26.0); ABG O2 SATURATION 92.9 % (95.0-99.0); ABG PARTIAL PRESSURE CO2 51.5 mmHg (35.0-45.0); ABG PARTIAL PRESSURE O2 66.9 mmHg (75.0-100.0); ABG STANDARD HCO3 29.7 MEQ/L (22.0-26.0); ABG TOTAL CO2 33.3 MEQ/L (22.0-29.0); ABG pH (ARTERIAL) 7.408 UNITS (7.350-7.450)
[2018-02-27 12:16] LABS: BLOOD UREA NITROGEN 8 MG/DL (7-18); CALCIUM LEVEL 8.6 MG/DL (8.5-10.1); CARBON DIOXIDE LEVEL 29 MEQ/L (21-32); CHLORIDE LEVEL 99 MEQ/L (98-107); CREATININE FOR GFR 0.48 MG/DL (0.55-1.30); GLOMERULAR FILTRATION RATE > 60.0 (>51); GLUCOSE, FASTING 95 MG/DL (70-100); SODIUM LEVEL 134 MEQ/L (136-145)
--- NOTE | 2018-02-27 12:26 | REP ---
PORTABLE CHEST X-RAY: Single view. HISTORY: Short of breath. COMPARISON STUDY: December 26, 2017. FINDINGS: There are multiple old overriding right posterior rib fractures again noted. There is some associated pleural thickening on the right. EKG electrodes are seen. There is linear plate-like atelectasis or subtle infiltrate in the left base new from the prior study. EKG electrodes are seen. The heart is not enlarged. There are surgical clips overlying the left medial clavicle as before. Pulmonary vasculature is not increased. IMPRESSION: Old displaced rib fractures on the right with associated chronic pleural thickening. Atelectasis versus infiltrate left base as a new finding. Otherwise no acute disease. Electronically Signed by Jesus Obregon MD 02/27/2018 06:04 P
[2018-02-27 12:30] LABS: CPK CREATINE PHOSPHOKINASE 68 U/L (26-192); MB/CK RELATIVE INDEX 3.09 (< OR =4); NT-PRO BNP 54 PG/ML (<125); TROPONIN I < 0.02 NG/ML (< 0.10)
[2018-02-27] MEDS ORDERED: ISOVUE-370 76% 100ML VIAL (Q9967) As Ordered ONE (12:34)
--- NOTE | 2018-02-27 13:06 | REP ---
CT Head without contrast HISTORY: Fall COMPARISON: None There is no intraparenchymal hemorrhage, acute infarct, mass or midline shift. The ventricular system is normal in appearance. The cortical sulci are dilated consistent with minimal volume loss. There is no extra cerebral collection. There is no fracture. The visualized sinuses are clear. IMPRESSION: Minimal volume loss. Electronically Signed by Stephen Jordan MD 02/27/2018 12:58 P
--- NOTE | 2018-02-27 13:25 | REP ---
AP pelvis: Single view. History: Injury in a fall. Comparison left hip radiographs are from July 19, 2017. Findings: The previously noted avascular necrosis is again seen in the left hip with significant collapse and reactive sclerosis and spur formation. The bony pelvic ring is intact. The hips are otherwise intact. No fracture is seen. There is contrast opacified urine outlining a normal left ureter from CT study done just prior. 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 No acute fracture is seen. Electronically Signed by Jesus Obregon MD 02/27/2018 01:17 P
[2018-02-27] MEDS ORDERED: methylPREDNISolone INJ 125 MG/2 ML VIAL (J2930) IV ONE (14:45)
--- NOTE | 2018-02-27 15:06 | REP ---
CT PULMONARY ANGIOGRAM: With IV contrast. HISTORY: Shortness of breath. COMPARISON STUDIES: Comparison noncontrast chest CT study March 06, 2017. Contrast dose: 75 mL of Isovue [address] TECHNIQUE: Helical scanning is acquired and overlapping 1.5 mm and contiguous 3 mm axial images are reformatted. In addition, maximum intensity projection and multiplanar re-formation images are generated in sagittal and coronal imaging projections. CT PULMONARY ANGIOGRAPHIC FINDINGS: There is good opacification of the pulmonary arterial tree. There is no CT evidence of pulmonary embolism. The thoracic aorta contains vascular calcification but enhances homogeneously without evidence of aneurysm or dissection. There is no pleural or pericardial effusion. There are multiple healed and nonunited rib fractures bilaterally. A feeding gastrostomy tube is noted in the epigastric region of the abdomen. There are mild fibrotic changes in the lung khan. There are granulomatous calcifications in the right lower lobe. No infiltrate is seen. No hilar or mediastinal mass or adenopathy is observed. IMPRESSION: No CT evidence of pulmonary embolus. Multiple old healed and nonunited rib fractures bilaterally. Granulomatous calcifications. No acute cardiopulmonary disease seen. Electronically Signed by Jesus Obregon MD 02/27/2018 06:07 P
[2018-02-27 15:30] VITALS: BP 93/63
[2018-02-27] MEDS ORDERED: PRED20TA PO (15:30)
[2018-02-27] MEDS ORDERED: ZOFR4TAB16 PO (15:43)
--- NOTE | 2018-02-27 20:08 | ECGEPIP ---
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
--- NOTE | 2018-02-28 11:43 | ED PDOC ---
Post-Departure Follow-Up dr coburn faxed formal report of pelvis film for fu Dane Cain MD Feb 28, 2018 11:43
== END 2018-02-27 15:47 | disposition home or self-care (01) ==
LOC: M ED 11:19
DX: J44.1 Chronic obstructive pulmonary disease with (acute) exacerbation (principal); R42 Dizziness and giddiness; Z91.81 History of falling; M54.9 Dorsalgia, unspecified; Z85.01 Personal history of malignant neoplasm of esophagus; Z87.891 Personal history of nicotine dependence; Z88.1 Allergy status to other antibiotic agents; Z79.899 Other long term (current) drug therapy; Z79.51 Long term (current) use of inhaled steroids; Z79.82 Long term (current) use of aspirin; Z93.0 Tracheostomy status
CPT/HCPCS: 36415; 70450; 71045; 71275; 72170; 80048; 82550; 82553; 82803; 83880; 84484; 85025; 93005; 93041; 96374; 99285; J2930; Q9967

== ENCOUNTER → 2018-04-09 | Outpatient (REF) | payer MEDICARE, MEDICAID ==
[~2018-04-09] MED LIST changes: +ZOFR4TAB16 PO
[2018-04-09 14:11] LABS: BASO # 0.1 10^3/uL (0.0-0.2); BASO % 0.4 % (0.0-1.0); EOS # 0.2 10^3/uL (0.0-0.50); EOS % 1.9 % (0.0-3.0); HEMATOCRIT 38.4 % (36.0-47.0); HEMOGLOBIN 12.3 g/dl (12.0-15.5); LYMPH # 0.9 10^3/uL (1.5-4.5); LYMPH % 7.1 % (24.0-44.0); MEAN CORPUSCULAR HEMOGLOBIN 26.8 pg (27.0-33.0); MEAN CORPUSCULAR VOLUME 83.7 fl (80.0-96.0); MONO # 0.9 10^3/uL (0.0-0.8); MONO % 7.3 % (0.0-5.0); NEUTROPHILS # 9.9 10^3/uL (1.8-7.7); PLATELET COUNT, AUTOMATED 320 10^3/uL (150-450); RED BLOOD COUNT 4.59 10^6/uL (4.00-5.40); WHITE BLOOD COUNT 11.9 10^3/uL (4.0-10.0)
[2018-04-09 14:42] LABS: BLOOD UREA NITROGEN 11 MG/DL (7-18); CALCIUM LEVEL 9.7 MG/DL (8.5-10.1); CARBON DIOXIDE LEVEL 31 MEQ/L (21-32); CHLORIDE LEVEL 97 MEQ/L (98-107); CREATININE FOR GFR 0.73 MG/DL (0.55-1.30); GLOMERULAR FILTRATION RATE > 60.0 (>51); GLUCOSE, FASTING 99 MG/DL (70-100); POTASSIUM SERUM 4.4 MEQ/L (3.5-5.1); SODIUM LEVEL 135 MEQ/L (136-145)
== END ==
LOC: M SFHCPLAZ 12:09
PROVIDERS: ATTEND Family Medicine
DX: D50.9 Iron deficiency anemia, unspecified (principal); R63.8 Other symptoms and signs concerning food and fluid intake
CPT/HCPCS: 36415; 80048; 85025; 99495; G0463

== ENCOUNTER → 2018-04-10 | Outpatient (CLI) | payer MEDICARE, MEDICAID ==
--- NOTE | 2018-04-10 11:29 | REP ---
Clinical: Pneumonia. Technique: PA and lateral. Comparison: 02/27/2018. Findings: Mediastinum and cardiac silhouette are normal. Subtle residual left basilar fibroatelectatic changes are appreciated and appear improved when compared to prior examination. No further acute consolidation, effusion, or pneumothorax. Skeletal structures are stable. Impression: Minimal residual left basilar fibroatelectatic change. Electronically Signed by Saman Valdovinos MD 04/10/2018 11:20 A
== END ==
LOC: M RAD 10:58
PROVIDERS: ATTEND Family Medicine
DX: R91.8 Other nonspecific abnormal finding of lung field (principal); J18.9 Pneumonia, unspecified organism

== ENCOUNTER → 2018-08-10 | Outpatient (CLI) | payer MEDICARE, MEDICAID ==
[~2018-08-10] MED LIST changes: -/ADVA50050 IN; -/AMLO25TA PO; -/ESOM40CA OR; -/ESOM40CA PO; -/MOXI40TA PO; +ACTO35TA9 PO; +ADVA1AER2 IN; +ASPI-1 PO; -ASPI1TAB PO; -ASPI325T PO; +ASPI81TA26 PO; +AVEL1TAB2 PO; -BACT20SS PO; +IBUP600T42 PO; -IBUP60TA PO; +LISI40TA52 PO; -LISI40TAB PO; +METO1TAB63 PO; -METO25TAB PO; +NEXI1CAP3 OR; +NEXI1CAP3 PO; +NORV2TAB PO; -RISE35TA PO; +SULF20OR PO
--- NOTE | 2018-08-29 23:54 | ECWPNPC ---
PATIENT NAME: ERWIN GRULLON : 1965 GENDER: FEMALE VISIT DATE: 08/10/2018 DISCHARGE DATE: 08/10/18 1222 VISIT LOCKED DATE TIME: PHYSICIAN: DILLON GONG RESOURCE: DILLON GONG REASON FOR APPOINTMENT 1. 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 PAIN THE PATIENT DESCRIBES THE PAIN... THE PATIENT DESCRIBES THE PAIN... PAIN THE PATIENT DESCRIBES THE PAIN... THE PATIENT DESCRIBES THE PAIN... FALL RISK SCREENING: SCREENING :NO FALLS REPORTED IN THE LAST YEAR CURRENT MEDICATIONS TAKING SODIUM CHLORIDE 0.9 % SOLUTION DIRECTED IRRIGATION TAKING JEVITY 1.5 TRAM - LIQUID 1.5 CANS VIA G-TUBE THREE TIMES DAILY TAKING ASPIR-81 81 MG TABLET DELAYED RELEASE 1 TABLET ORALLY ONCE A DAY TAKING NEBULIZER - DEVICE DIRECTED DX J44.9 TAKING CLOTRIMAZOLE 10 MG GILBERT 1 GILBERT MOUTH/THROAT FIVE TIMES A DAY TAKING PROCHLORPERAZINE MALEATE 10 MG TABLET 1 TABLET NEEDED ORALLY THREE TIMES A DAY TAKING METOPROLOL TARTRATE 25 MG TABLET 1 TABLET ORALLY TWICE A DAY TAKING PRAMIPEXOLE DIHYDROCHLORIDE 0.125 MG TABLET 3 TABLET ORALLY THREE TIMES A DAY NEEDED FOR RESTLESS LEGS; MDD #9 TAKING VITAMIN D3 400 UNIT/ML LIQUID 2 ML ORALLY ONCE A DAY TAKING PANTOPRAZOLE SODIUM 20 MG TABLET DELAYED RELEASE 1 TABLET ORALLY ONCE A DAY TAKING PAROXETINE HCL 20 MG TABLET TAKE ONE TABLET ORALLY ONCE A DAY TAKING ATORVASTATIN CALCIUM 40 MG TABLET 1 TABLET ORALLY ONCE A DAY TAKING ALBUTEROL-IPRATROPIUM 2.5-0.5 MG/3ML SOLUTION 3 ML NEBULIZER NEEDED TAKING FORMOTEROL FUMARATE 20 MCG/2ML NEBULIZATION SOLUTION 2 ML INHALATION TWICE A DAY TAKING BUDESONIDE 0.5 MG/2ML SUSPENSION 2 ML INHALATION TWICE A DAY TAKING HYDROCODONE-ACETAMINOPHEN 7.5-325 MG/15ML SOLUTION 15 ML NEEDED ORALLY FOR PAIN THREE TIMES DAILY NEEDED TAKING CYCLOBENZAPRINE HCL 10 MG TABLET 1 TABLET NEEDED ORALLY THREE TIMES A DAY TAKING GABAPENTIN 600 MG TABLET 1 TABLET ORALLY FIVE TIMES A DAY TAKING ONDANSETRON HCL 4 MG TABLET 1 TABLET NEEDED ORALLY EVERY 6 HOURS PAST MEDICAL HISTORY HTN GERD B/L ANKLE FRACTURES MULTIPLE RIB FRACTURES DEC 2012 TO PRESENT ASPIRATION PNEUMONIA 05/2011 PEANUT A SHELL ASPIRATION 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 TRINH IN [place] ANXIETY CHRONIC PAIN IN ARMS AND LEGS VITAMIN D DEFICIENCY HYPOMAGNESEMIA ASCVD RISK 17%, 06/2016 - STATIN STARTED PREDIABETES - LAST A1C 6.2% IN 07/2016. LARYNGEAL CANCER ALLERGIES CEFTIN: HIVES - ALLERGY SURGICAL HISTORY CARPAL TUNNEL RELEASE CONNOR 06/03/2009 ENDOSCOPY 04/2011 LEFT KNEE REPLACEMENT LEFT FOOT SURGERY TONSILS REMOVED NOSE SURGERY TRACHEOSTOMY 01/2017 COLONSCOPY - 1 ADENOMATOUS POLYP/TVA REMOVED; DR. NORRIS; REPEAT IN 3 YEARS 02/2017 FEEDING TUBE 02/2017 BILATERAL MODIFIED RADICAL NECK DISSECTION, TOTAL LARYNGECTOMY, TE PUNCTURE PROSTHESIS PLACEMENT, CRICOPHARYNGEAL MYOTOMY 03/20/17 FAMILY HISTORY FATHER: , BREAST CANCER, BILATERAL MASTECTOMIES MOTHER: , LIVER CANCER, BENIGN BREAST MASSES, HTN, DM 1 BROTHER(S) , 3 SISTER(S) - HEALTHY. DENIES HX COLON OR OVARIAN CANCERS. NO CHILDREN. HOSPITALIZATION/MAJOR DIAGNOSTIC PROCEDURE SURG RELATED TRACH 02/09/17 PNEMONIA 03/06/17 SURGERY 03/20/2017 PNUEMONIA 03/2018 REVIEW OF SYSTEMS REVIEWED BY: PROVIDER: DILLON OLIVERA . CONSTITUTIONAL: ANY CHANGE IN YOUR MEDICAL CONDITION? NO . CHILLS NO . FEVER NO . INFECTION: DO YOU HAVE NEW INFECTIONS? NO . DO YOU HAVE HISTORY OF MRSA? NO . MUSCULOSKELETAL: ANY NEW PATTERNS OF PAIN OR NUMBNESS? NO . GASTROENTEROLOGY: ANY NEW CHANGE IN BOWEL CONTROL? YES . GENITOURINARY: ANY NEW CHANGE IN BLADDER CONTROL? NO . IS THERE A CHANCE YOU COULD BE ? NO . HEMATOLOGY/LYMPH: DO YOU TAKE ANY BLOOD THINNERS? (FOR EXAMPLE- COUMADIN, PLAVIX, AGGRENOX, PLATEL, PRADAXA, OR XARELTO) NO . WHEN WAS YOUR LAST DOSE? DATE: TIME: . NEUROLOGY: HAVE YOU FALLEN IN THE PAST 12 MONTHS? NO . ANY NEW EXTREMITY NUMBNESS OR WEAKNESS? NO . CARDIOLOGY: DO YOU HAVE A PACEMAKER OR DEFIBRILLATOR? NO . RESPIRATORY: HAVE YOU BEEN SICK IN THE PAST WEEK? NO . FEVER NO . FLU LIKE SYMPTOMS? NO . COUGH NO . INTEGUMENTARY: DO YOU HAVE ANY RASHES OR OPEN SORES? NO . ALLERGIC/IMMUNO: ARE YOU ALLERGIC TO IV DYE? NO . ANY NEW ALLERGIES? NO . PSYCHIATRIC: DO YOU HAVE THOUGHTS OF HURTING YOURSELF OR SOMEONE ELSE? NO . ARE YOU ABUSED, NEGLECTED, OR IN AN UNSAFE ENVIRONMENT? NO . ENDOCRINOLOGY: ARE YOU DIABETIC? NO . OTHER: DO YOU NEED ANY PRESCRIPTIONS? NO . IF YES, PLEASE LIST: ____ . ANY NEW PROBLEMS WITH YOUR MEDICATIONS? NO . WHEN DID YOU LAST EAT? ____ . WHEN DID YOU LAST DRINK? ____ . WHAT DID YOU LAST DRINK? ____ . NAME OF PERSON DRIVING YOU HOME? ____ . DO YOU HAVE ANY OTHER QUESTIONS OR CONCERNS NO . VITAL SIGNS WT 132.2 LBS, HT 59 IN, BMI 26.70 INDEX, BP 166/74 MM HG, HR 115 /MIN, RR 18 /MIN, TEMP 97.1 F, OXYGEN SAT % 97%, NA INITIALS SC 11:44. EXAMINATION GENERAL EXAMINATION: GENERALALERT,NO DISTRESS. PSYCHAFFECT NORMAL. LUNGS:LUNG BONE ARE CLEAR TO AUSCULTATION BILATERALLY. GOOD MOVEMENT OF AIR. HEART:S1, S2 IN A REGULAR RATE AND RHYTHM. NO SIGNIFICANT MURMURS, RUBS OR GALLOPS NOTED. ASSESSMENTS LUMBAGO WITH SCIATICA, LEFT SIDE - M54.42 (PRIMARY) TREATMENT LUMBAGO WITH SCIATICA, LEFT SIDE REFILL HYDROCODONE-ACETAMINOPHEN SOLUTION, 7.5-325 MG/15ML, 15 ML NEEDED, ORALLY FOR PAIN, THREE TIMES DAILY NEEDED, 30 DAYS, 1800, REFILLS 0 NOTES: ISTOP REGISTRY REVIEWED AND DEMONSTRATES COMPLLIANCE. BRINGS IN MEDICATIONS WHICH IS APPROPRIATE FOR WHAT WAS DISPENSED. RECENT URINE TOXICOLOGY REVIEWED. NO UNAUTHORIZED MEDICATIONS. NO ILLICIT SUBSTANCES AND PRESCRIBED MEDICATIONS WERE PRESENT. , RISKS AND BENEFITS OF NARCOTIC/OPIOD MEDICATIONS WERE REVIEWED WITH PATIENT - THIS INCLUDES BUT IS NOT LIMITED TO RISK OF DEPENDANCE/DEVELOPMENT OF ADDICTION, MOOD DISTURBANCE AND DEPRESSION, OSTEOPOROSIS, HORMONAL AND LABIDAL CHANGES, RESPIRATORY DEPRESSION AND . PATIENT IS ADVISED NOT TO DRIVE OR DRINK ALCOHOL WHILE ON THESE MEDICATIONS. PROCEDURE CODES FA211 ESTABILISHED PATIENT [facility] CHARGE DISPOSITION & COMMUNICATION FOLLOW UP 3 MONTHS; 30 MIN (REASON: AWV) ELECTRONICALLY SIGNED BY JAROD MCGARRY ON 08/29/2018 AT 08:08 AM EDT DISCLAIMER : THIS IS A VISIT SUMMARY EXTRACTED FROM THE [employer] CHART. IT IS NOT A COPY OF THE [employer] PROGRESS NOTE. EMILY
== END ==
LOC: M PAIN 11:15
PROVIDERS: ATTEND Nurse Practitioner Family
DX: M54.42 Lumbago with sciatica, left side (principal); I10 Essential (primary) hypertension; K21.9 Gastro-esophageal reflux disease without esophagitis; J44.9 Chronic obstructive pulmonary disease, unspecified; M85.80 Other specified disorders of bone density and structure, unspecified site; K64.8 Other hemorrhoids; G25.81 Restless legs syndrome; F41.9 Anxiety disorder, unspecified; E55.9 Vitamin D deficiency, unspecified; R73.03 Prediabetes; Z85.21 Personal history of malignant neoplasm of larynx; Z96.652 Presence of left artificial knee joint; Z88.1 Allergy status to other antibiotic agents

== ENCOUNTER → 2018-08-14 | Outpatient (REF) | payer MEDICARE, MEDICAID ==
[2018-08-14 15:51] LABS: BASO % 0.3 % (0.0-1.0); EOS # 0.3 10^3/uL (0.0-0.50); EOS % 2.3 % (0.0-3.0); HEMATOCRIT 35.6 % (36.0-47.0); HEMOGLOBIN 11.3 g/dl (12.0-15.5); LYMPH # 0.6 10^3/uL (1.5-4.5); LYMPH % 4.5 % (24.0-44.0); MEAN CORPUSCULAR HGB CONC 31.7 g/dl (32.0-36.5); MEAN CORPUSCULAR VOLUME 81.8 fl (80.0-96.0); MONO # 0.8 10^3/uL (0.0-0.8); MONO % 6.3 % (0.0-5.0); NEUTROPHILS # 10.8 10^3/uL (1.8-7.7); NEUTROPHILS % 86.3 % (36.0-66.0); PLATELET COUNT, AUTOMATED 297 10^3/uL (150-450); RED BLOOD COUNT 4.35 10^6/uL (4.00-5.40); WHITE BLOOD COUNT 12.5 10^3/uL (4.0-10.0)
[2018-08-14 15:54] LABS: ALBUMIN 3.7 GM/DL (3.2-5.2); ALT/SGPT 28 U/L (12-78); BILIRUBIN,TOTAL 0.5 MG/DL (0.2-1.0); BLOOD UREA NITROGEN 8 MG/DL (7-18); CALCIUM LEVEL 9.9 MG/DL (8.5-10.1); CARBON DIOXIDE LEVEL 32 MEQ/L (21-32); CHLORIDE LEVEL 94 MEQ/L (98-107); CREATININE FOR GFR 0.78 MG/DL (0.55-1.30); GLOMERULAR FILTRATION RATE > 60.0 (>51); GLUCOSE, FASTING 97 MG/DL (70-100); POTASSIUM SERUM 3.7 MEQ/L (3.5-5.1); SODIUM LEVEL 135 MEQ/L (136-145); TOTAL PROTEIN 8.4 GM/DL (6.4-8.2)
[2018-08-14 16:04] LABS: INR 1.12; PROTHROMBIN TIME 14.1 SECONDS (11.8-14.0)
== END ==
LOC: M SFHCPLAZ 13:52
PROVIDERS: ATTEND Family Medicine
DX: R23.3 Spontaneous ecchymoses (principal)
CPT/HCPCS: 36415; 80053; 85025; 85610; G0463

== ENCOUNTER → 2018-08-29 | Outpatient (REF) | payer MEDICARE, MEDICAID ==
[2018-08-29 13:19] LABS: HEMATOCRIT 35.6 % (36.0-47.0); HEMOGLOBIN 11.2 g/dl (12.0-15.5); MEAN CORPUSCULAR HEMOGLOBIN 26.4 pg (27.0-33.0); MEAN CORPUSCULAR HGB CONC 31.5 g/dl (32.0-36.5); PLATELET COUNT, AUTOMATED 241 10^3/uL (150-450); RED BLOOD COUNT 4.24 10^6/uL (4.00-5.40); WHITE BLOOD COUNT 6.4 10^3/uL (4.0-10.0)
== END ==
LOC: M SFHCPLAZ 11:41
PROVIDERS: ATTEND Family Medicine
DX: Z86.2 Personal history of diseases of the blood and blood-forming organs and certain disorders involving the immune mechanism (principal)
CPT/HCPCS: 36415; 82728; 83550; 85027; G0463

== ENCOUNTER → 2018-09-27 | Outpatient (CLI) | payer MEDICARE, MEDICAID ==
--- NOTE | 2018-10-17 02:12 | ECWPNPC ---
PATIENT NAME: ERWIN GRULLON : 1965 GENDER: FEMALE VISIT DATE: 09/27/2018 DISCHARGE DATE: 09/27/18 0855 VISIT LOCKED DATE TIME: PHYSICIAN: DILLON GONG RESOURCE: DILLON GONG REASON FOR APPOINTMENT 1. 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 PAIN THE PATIENT DESCRIBES THE PAIN... THE PATIENT DESCRIBES THE PAIN... THE PATIENT DESCRIBES THE PAIN... FALL RISK SCREENING: SCREENING :NO FALLS REPORTED IN THE LAST YEAR CURRENT MEDICATIONS TAKING SODIUM CHLORIDE 0.9 % SOLUTION DIRECTED IRRIGATION TAKING JEVITY 1.5 TRAM - LIQUID 1.5 CANS VIA G-TUBE THREE TIMES DAILY TAKING ASPIR-81 81 MG TABLET DELAYED RELEASE 1 TABLET ORALLY ONCE A DAY TAKING NEBULIZER - DEVICE DIRECTED DX J44.9 TAKING CLOTRIMAZOLE 10 MG GILBERT 1 GILBERT MOUTH/THROAT FIVE TIMES A DAY TAKING PROCHLORPERAZINE MALEATE 10 MG TABLET 1 TABLET NEEDED ORALLY THREE TIMES A DAY TAKING METOPROLOL TARTRATE 25 MG TABLET 1 TABLET ORALLY TWICE A DAY TAKING VITAMIN D3 400 UNIT/ML LIQUID 2 ML ORALLY ONCE A DAY TAKING PANTOPRAZOLE SODIUM 20 MG TABLET DELAYED RELEASE 1 TABLET ORALLY ONCE A DAY TAKING PAROXETINE HCL 20 MG TABLET TAKE ONE TABLET ORALLY ONCE A DAY TAKING ATORVASTATIN CALCIUM 40 MG TABLET 1 TABLET ORALLY ONCE A DAY TAKING BUDESONIDE 0.5 MG/2ML SUSPENSION 2 ML INHALATION TWICE A DAY TAKING ONDANSETRON HCL 4 MG TABLET 1 TABLET NEEDED ORALLY EVERY 6 HOURS TAKING FORMOTEROL FUMARATE 20 MCG/2ML NEBULIZATION SOLUTION 2 ML INHALATION TWICE A DAY TAKING ALBUTEROL-IPRATROPIUM 2.5-0.5 MG/3ML SOLUTION 3 ML NEBULIZER NEEDED TAKING GABAPENTIN 600 MG TABLET 1 TABLET ORALLY FIVE TIMES A DAY TAKING CYCLOBENZAPRINE HCL 10 MG TABLET 1 TABLET NEEDED ORALLY THREE TIMES A DAY TAKING FERROUS SULFATE 75 (15 FE) MG/ML SOLUTION 5 ML VIA G-TUBE DAILY TAKING PRAMIPEXOLE DIHYDROCHLORIDE 0.125 MG TABLET TAKE THREE TABLETS BY MOUTH THREE TIMES A DAY NEEDED FOR RESTLESS LEGS TAKING HYDROCODONE-ACETAMINOPHEN 7.5-325 MG/15ML SOLUTION 15 ML NEEDED ORALLY FOR PAIN THREE TIMES DAILY NEEDED NOT-TAKING PREDNISONE 20 MG TABLET 2 TABLET ORALLY ONCE A DAY NOT-TAKING DOXYCYCLINE HYCLATE 100 MG CAPSULE 1 CAPSULE ORALLY EVERY 12 HRS MEDICATION LIST REVIEWED AND RECONCILED WITH THE PATIENT PAST MEDICAL HISTORY HTN GERD B/L ANKLE FRACTURES MULTIPLE RIB FRACTURES DEC 2012 TO PRESENT ASPIRATION PNEUMONIA 05/2011 [place]AN[place] A SHELL ASPIRATION 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 TRINH IN [place] ANXIETY CHRONIC PAIN IN ARMS AND LEGS VITAMIN D DEFICIENCY HYPOMAGNESEMIA ASCVD RISK 17%, 06/2016 - STATIN STARTED PREDIABETES - LAST A1C 6.2% IN 07/2016. LARYNGEAL CANCER ALLERGIES CEFTIN: HIVES - ALLERGY SURGICAL HISTORY CARPAL TUNNEL RELEASE CONNOR 06/03/2009 ENDOSCOPY 04/2011 LEFT KNEE REPLACEMENT LEFT FOOT SURGERY TONSILS REMOVED NOSE SURGERY TRACHEOSTOMY 01/2017 COLONSCOPY - 1 ADENOMATOUS POLYP/TVA REMOVED; DR. NORRIS; REPEAT IN 3 YEARS 02/2017 FEEDING TUBE 02/2017 BILATERAL MODIFIED RADICAL NECK DISSECTION, TOTAL LARYNGECTOMY, TE PUNCTURE PROSTHESIS PLACEMENT, CRICOPHARYNGEAL MYOTOMY 03/20/17 FAMILY HISTORY FATHER: , BREAST CANCER, BILATERAL MASTECTOMIES MOTHER: , LIVER CANCER, BENIGN BREAST MASSES, HTN, DM 1 BROTHER(S) , 3 SISTER(S) - HEALTHY. DENIES HX COLON OR OVARIAN CANCERS. NO CHILDREN. SOCIAL HISTORY GENERAL: TOBACCO USE ARE YOU A:FORMER SMOKER HOW LONG HAS IT BEEN SINCE YOU LAST SMOKED?1-5 YEARS SMOKING CESSATION INFORMATION GIVEN01/26/2017 HIV / HEP-C SCREENING HIV TEST OFFERED TO PATIENT:YES DATE OFFERED:07/01/2016 TEST ACCEPTED:NO HEP-C TEST OFFERED TO PATIENT:YES DATE OFFERED:07/01/2016 REASON:PATIENT DECLINED TEST ACCEPTED:NO REASON:PATIENT DECLINED OTHERS AT HOME: NONE. EDUCATION LEVEL OF EDUCATION:NOT FINISHED HIGH SCHOOL DIET: G TUBE. LANGUAGE LANGUAGES SPOKEN:FRENCH DOMESTIC VIOLENCE DO YOU FEEL SAFE IN YOUR ENVIRONMENT?YES BMI CARE GOAL FOLLOW-UP ABOVE NORMAL BMI FOLLOW-UPGIVING ENCOURAGEMENT TO EXERCISE RECREATIONAL DRUG USE DRUG USE?NO EXERCISE: NO REGULAR EXERCISE. LEARNING BARRIERS / SPECIAL NEEDS CHANGE FROM LAST VISIT?NO BARRIERS TO LEARNING?NO HEARING IMPAIRED?NO VISION IMPAIRED?YES COGNITIVELY IMPAIRED?NO :CORRECTIVE LENSES READINESS TO LEARN?YES LEARNING PREFERENCES?NO LEARNING CAPABILITIES PRESENT?YES EMOTIONAL BARRIERS?NO SPECIAL DEVICES?YES :OTHER CRUTCHES, TRACH MODEL AND DYE PERSON NEEDED?NO PAIN CLINIC PFS, CLERGY, PUBLIC HEALTH REFERRALS WAS THE PROVIDER NOTIFIED OF ANY PERTINENT INFO?YES HAS THE PATIENT BEEN EDUCATED REGARDING HIS/HER PLAN OF CARE?YES HAS THE PATIENT BEEN EDUCATED REGARDING PAIN, THE RISK FOR PAIN, THE IMPORTANCE OF EFFECTIVE PAIN MANAGEMENT, AND THE PAIN ASSESSMENT PROCESS?YES LATEX QUESTIONNAIRE LATEX ALLERGY : HAVE YOU EVER DEVELOPED ANY TYPE OF REACTION AFTER HANDLING LATEX PRODUCTS SUCH RUBBER GLOVES, CONDOMS, DIAPHRAGMS, BALLOONS, SOCKS, OR UNDERWEAR?NO LATEX ALLERGY : HAVE YOU EVER DEVELOPED ANY TYPE OF REACTION DURING OR AFTER DENTAL APPOINTMENT, VAGINAL/RECTAL EXAMINATION, SURGICAL PROCEDURE, OR ANY OTHER EXPOSURE?NO DATE ASKED : 06/20/2018 LATEX RISK : HAVE YOU EVER HAD ANY DIFFICULTY BREATHING OR HIVES AFTER EATING OR HANDLING ANY FRUITS, OR VEGETABLES; SUCH KIWI, BANANAS, STONE FRUITS, OR CHESTNUTSNO LATEX RISK : DO YOU HAVE A PREVIOUS PERSONAL HISTORY OF MORE THAN NINE SURGERIES, SPINA BIFIDA, OR REPEATED CATHERIZATIONS? NO LATEX RISK : ARE YOU FREQUENTLY EXPOSED TO LATEX PRODUCTS IN YOUR OCCUPATION?NO CAFFEINE CAFFEINE USE?YES 4 BEVERAGES DAILY ADVANCE DIRECTIVE ADVANCE DIRECTIVE DISCUSSED WITH PATIENT:YES HCP - BA (NIECE) ZOROASTRIAN [id number] JEWISH MARITAL STATUS: SINGLE. ALCOHOL SCREENING DID YOU HAVE A DRINK CONTAINING ALCOHOL IN THE PAST YEAR?YES HOW OFTEN DID YOU HAVE SIX OR MORE DRINKS ON ONE OCCASION IN THE PAST YEAR?NEVER (0 POINTS) HOW MANY DRINKS DID YOU HAVE ON A TYPICAL DAY WHEN YOU WERE DRINKING IN THE PAST YEAR?1 OR 2 (0 POINTS) HOW OFTEN DID YOU HAVE A DRINK CONTAINING ALCOHOL IN THE PAST YEAR?TWO TO FOUR TIMES A MONTH (2 POINTS) POINTS2 INTERPRETATIONNEGATIVE OCCUPATION: DISABLED. SEXUAL HX HAD SEX IN THE LAST 12 MONTHS (VAGINAL, ORAL, OR ANAL)?NO HAVE YOU EVER HAD AN STD?NO REVIEWED WITH PATIENT 11/23/17 1344 JSREVIEWED WITH PT 09/27/18 1328 BV. HOSPITALIZATION/MAJOR DIAGNOSTIC PROCEDURE SURG RELATED TRACH 02/09/17 PNEMONIA 03/06/17 SURGERY 03/20/2017 PNUEMONIA 03/2018 REVIEW OF SYSTEMS REVIEWED BY: PROVIDER: DILLON OLIVERA . CONSTITUTIONAL: ANY CHANGE IN YOUR MEDICAL CONDITION? NO . CHILLS NO . FEVER NO . INFECTION: DO YOU HAVE NEW INFECTIONS? NO . DO YOU HAVE HISTORY OF MRSA? NO . MUSCULOSKELETAL: ANY NEW PATTERNS OF PAIN OR NUMBNESS? YES, PT COMPLAINS OF INCREASED PAIN IN LEFT HIP OVER THE PAST MONTH . GASTROENTEROLOGY: ANY NEW CHANGE IN BOWEL CONTROL? NO . GENITOURINARY: ANY NEW CHANGE IN BLADDER CONTROL? NO . IS THERE A CHANCE YOU COULD BE ? NO . HEMATOLOGY/LYMPH: DO YOU TAKE ANY BLOOD THINNERS? (FOR EXAMPLE- COUMADIN, PLAVIX, AGGRENOX, PLATEL, PRADAXA, OR XARELTO) NO . WHEN WAS YOUR LAST DOSE? DATE: TIME: . NEUROLOGY: HAVE YOU FALLEN IN THE PAST 12 MONTHS? NO . ANY NEW EXTREMITY NUMBNESS OR WEAKNESS? NO . CARDIOLOGY: DO YOU HAVE A PACEMAKER OR DEFIBRILLATOR? NO . RESPIRATORY: HAVE YOU BEEN SICK IN THE PAST WEEK? NO . FEVER NO . FLU LIKE SYMPTOMS? NO . COUGH NO . INTEGUMENTARY: DO YOU HAVE ANY RASHES OR OPEN SORES? NO . ALLERGIC/IMMUNO: ARE YOU ALLERGIC TO IV DYE? NO . ANY NEW ALLERGIES? NO . PSYCHIATRIC: DO YOU HAVE THOUGHTS OF HURTING YOURSELF OR SOMEONE ELSE? NO . ARE YOU ABUSED, NEGLECTED, OR IN AN UNSAFE ENVIRONMENT? NO . ENDOCRINOLOGY: ARE YOU DIABETIC? NO . OTHER: DO YOU NEED ANY PRESCRIPTIONS? NO . IF YES, PLEASE LIST: ____ . ANY NEW PROBLEMS WITH YOUR MEDICATIONS? NO . WHEN DID YOU LAST EAT? ____ . WHEN DID YOU LAST DRINK? ____ . WHAT DID YOU LAST DRINK? ____ . NAME OF PERSON DRIVING YOU HOME? ____ . DO YOU HAVE ANY OTHER QUESTIONS OR CONCERNS NO . VITAL SIGNS WT 119 LBS, HT 59 IN, BMI 24.03 INDEX, BP 133/61 MM HG, HR 66 /MIN, RR 18 /MIN, TEMP 97.0 F, OXYGEN SAT % 91%, NA INITIALS SC 13:15, REVIEWED BY: BV. EXAMINATION GENERAL EXAMINATION: GENERALALERT,NO DISTRESS. PSYCHAFFECT NORMAL. LUNGS:LUNG BONE ARE CLEAR TO AUSCULTATION BILATERALLY. GOOD MOVEMENT OF AIR. HEART:S1, S2 IN A REGULAR RATE AND RHYTHM. NO SIGNIFICANT MURMURS, RUBS OR GALLOPS NOTED. ASSESSMENTS LUMBAGO WITH SCIATICA, LEFT SIDE - M54.42 (PRIMARY) TREATMENT LUMBAGO WITH SCIATICA, LEFT SIDE REFILL HYDROCODONE-ACETAMINOPHEN SOLUTION, 7.5-325 MG/15ML, 15 ML NEEDED, ORALLY FOR PAIN, Q6H PRN PAIN MDD 60ML, 30 DAYS, 1800, REFILLS 0 NOTES: ISTOP REGISTRY REVIEWED AND DEMONSTRATES COMPLLIANCE. BRINGS IN MEDICATIONS WHICH IS APPROPRIATE FOR WHAT WAS DISPENSED. RECENT URINE TOXICOLOGY REVIEWED. NO UNAUTHORIZED MEDICATIONS. NO ILLICIT SUBSTANCES AND PRESCRIBED MEDICATIONS WERE PRESENT. , RISKS AND BENEFITS OF NARCOTIC/OPIOD MEDICATIONS WERE REVIEWED WITH PATIENT - THIS INCLUDES BUT IS NOT LIMITED TO RISK OF DEPENDANCE/DEVELOPMENT OF ADDICTION, MOOD DISTURBANCE AND DEPRESSION, OSTEOPOROSIS, HORMONAL AND LABIDAL CHANGES, RESPIRATORY DEPRESSION AND . PATIENT IS ADVISED NOT TO DRIVE OR DRINK ALCOHOL WHILE ON THESE MEDICATIONS. PROCEDURE CODES FA211 ESTABILISHED PATIENT [facility] CHARGE DISPOSITION & COMMUNICATION FOLLOW UP 3 MONTHS (REASON: MED MGMNT) ELECTRONICALLY SIGNED BY JAROD MCGARRY ON 10/16/2018 AT 04:48 PM EDT DISCLAIMER : THIS IS A VISIT SUMMARY EXTRACTED FROM THE [employer] CHART. IT IS NOT A COPY OF THE [employer] PROGRESS NOTE. EMILY
== END ==
LOC: M PAIN 13:00
PROVIDERS: ATTEND Nurse Practitioner Family
DX: M54.42 Lumbago with sciatica, left side (principal); G89.29 Other chronic pain; I10 Essential (primary) hypertension; K21.9 Gastro-esophageal reflux disease without esophagitis; J44.9 Chronic obstructive pulmonary disease, unspecified; G25.81 Restless legs syndrome; Z86.59 Personal history of other mental and behavioral disorders; E55.9 Vitamin D deficiency, unspecified; Z96.652 Presence of left artificial knee joint; Z87.891 Personal history of nicotine dependence; Z88.1 Allergy status to other antibiotic agents; Z79.82 Long term (current) use of aspirin; Z79.899 Other long term (current) drug therapy

== ENCOUNTER → 2018-10-11 | Outpatient (CLI) | payer MEDICARE, MEDICAID ==
--- NOTE | 2018-10-11 14:46 | REP ---
Chest, two views Indication: COPD, history malignant neoplasm. Comparison: Two-view chest of 04/10/2018. CT chest of 03/06/2017. Findings: The cardiomediastinal silhouette is normal in appearance. There are atherosclerotic calcification of the thoracic aorta, similar to prior. Pulmonary vascularity is normal. There is similar plate-like atelectasis in the lingula. There is no focal consolidation or suspicious pulmonary nodule. Similar appearance of the musculoskeletal structures with soft tissue thickening on the right related to old rib fractures with fibrous healing. Redemonstration of surgical clips overlying the left neck. Impression: No acute cardiopulmonary process. Electronically Signed by Tammy Mckay MD 10/11/2018 02:37 P
== END ==
LOC: M SMT 14:01
PROVIDERS: ATTEND Internal Medicine Pulmonary Disease
DX: J44.9 Chronic obstructive pulmonary disease, unspecified (principal); Z85.21 Personal history of malignant neoplasm of larynx

== ENCOUNTER → 2018-10-12 | Outpatient (REF) | payer MEDICARE, MEDICAID ==
[2018-10-12 16:05] LABS: BASO % 0.7 % (0.0-1.0); EOS # 0.4 10^3/uL (0.0-0.50); EOS % 7.3 % (0.0-3.0); HEMATOCRIT 38.9 % (36.0-47.0); HEMOGLOBIN 12.5 g/dl (12.0-15.5); LYMPH # 0.8 10^3/uL (1.5-4.5); LYMPH % 12.9 % (24.0-44.0); MEAN CORPUSCULAR HEMOGLOBIN 27.1 pg (27.0-33.0); MEAN CORPUSCULAR HGB CONC 32.1 g/dl (32.0-36.5); MEAN CORPUSCULAR VOLUME 84.4 fl (80.0-96.0); MONO # 0.6 10^3/uL (0.0-0.8); MONO % 10.6 % (0.0-5.0); NEUTROPHILS # 4.1 10^3/uL (1.8-7.7); NEUTROPHILS % 68.3 % (36.0-66.0); PLATELET COUNT, AUTOMATED 206 10^3/uL (150-450); RED BLOOD COUNT 4.61 10^6/uL (4.00-5.40)
[2018-10-12 16:13] LABS: BLOOD UREA NITROGEN 5 MG/DL (7-18); CALCIUM LEVEL 9.7 MG/DL (8.5-10.1); CARBON DIOXIDE LEVEL 33 MEQ/L (21-32); CHLORIDE LEVEL 93 MEQ/L (98-107); CREATININE FOR GFR 0.59 MG/DL (0.55-1.30); FERRITIN 18 NG/ML (8-252); GLOMERULAR FILTRATION RATE > 60.0 (>51); GLUCOSE, FASTING 83 MG/DL (70-100); IRON (FE) 73 UG/DL (50-170); PERCENT SATURATION 17.8 % (13.2-45.0); POTASSIUM SERUM 4.5 MEQ/L (3.5-5.1); SODIUM LEVEL 133 MEQ/L (136-145); TOTAL IRON BINDING CAPACITY 409 UG/DL (250-450)
[2018-10-12 16:24] LABS: HEMOGLOBIN A1c 5.8 %
== END ==
LOC: M SFHCPLAZ 14:23
PROVIDERS: ATTEND Family Medicine
DX: E11.9 Type 2 diabetes mellitus without complications (principal); I10 Essential (primary) hypertension; Z86.2 Personal history of diseases of the blood and blood-forming organs and certain disorders involving the immune mechanism
CPT/HCPCS: 36415; 80048; 82728; 83036; 83550; 85025; 93005; G0463

== ENCOUNTER → 2018-11-23 | Outpatient (REF) | payer MEDICARE, MEDICAID ==
[2018-11-23 15:36] LABS: HEMATOCRIT 40.6 % (36.0-47.0); HEMOGLOBIN 12.9 g/dl (12.0-15.5); MEAN CORPUSCULAR HEMOGLOBIN 29.3 pg (27.0-33.0); MEAN CORPUSCULAR HGB CONC 31.8 g/dl (32.0-36.5); MEAN CORPUSCULAR VOLUME 92.3 fl (80.0-96.0); PLATELET COUNT, AUTOMATED 191 10^3/uL (150-450); WHITE BLOOD COUNT 8.2 10^3/uL (4.0-10.0)
[2018-11-23 16:07] LABS: PERCENT SATURATION 19.3 % (13.2-45.0)
== END ==
LOC: M SFHCPLAZ 13:41
PROVIDERS: ATTEND Family Medicine
DX: D50.9 Iron deficiency anemia, unspecified (principal)
CPT/HCPCS: 36415; 82728; 83550; 85027; G0463

== ENCOUNTER → 2018-12-17 | Outpatient (CLI) | payer MEDICARE, MEDICAID ==
--- NOTE | 2018-12-17 14:59 | REPMRS ---
Patient History The patient states she had a clinical breast exam in 12/2018. Patient is postmenopausal, has history of throat cancer at age 51, had previous chemotherapy at age 51, and is nulliparous. Family history of breast cancer at age 50 or over in father. Took estrogen for 6 years. Digital Woman Screen Mammo: December 17, 2018 - Exam #: [id number] Bilateral CC and MLO view(s) were taken. Technologist: Lashon Pace, Technologist Prior study comparison: December 14, 2017, bilateral digital woman screen mammo performed at [facility]. June 15, 2016, digital woman screen mammo performed at [facility]. January 20, 2015, digital woman screen mammo performed at [facility]. FINDINGS: The breast tissue is heterogeneously dense. This may lower the sensitivity of mammography. There is a moderate amount of heterogeneously dense fibroglandular tissue which is fairly symmetric. There is no interval development of dominant mass, architectural distortion, or grouped microcalcification typical of malignancy. There has been no change in the appearance of the mammogram from the prior studies. 3-D tomosynthesis shows no additional findings. Assessment: BI-RADS/ACR category 1 mammogram. Negative Mammogram. Recommendation Breast MRI of both breasts in 6 months. Routine screening mammogram of both breasts in 1 year (for women over age 40). This patient's Lifetime Breast Cancer RIsk is estimated at 20.3 %. Annual screening Breast MRI scanniing is recommended for patient's whose lifetime risk assessment is over 20%. This mammogram was interpreted with the aid of an FDA-approved computer-aided dectection system. Electronically Signed By: Bryan Obregon MD 12/17/18 0228
== END ==
LOC: M WHC 13:51
PROVIDERS: ATTEND Nurse Practitioner Family
DX: Z01.419 Encounter for gynecological examination (general) (routine) without abnormal findings (principal); Z12.31 Encounter for screening mammogram for malignant neoplasm of breast; Z78.0 Asymptomatic menopausal state; Z85.89 Personal history of malignant neoplasm of other organs and systems; Z92.21 Personal history of antineoplastic chemotherapy; Z80.3 Family history of malignant neoplasm of breast; Z92.23 Personal history of estrogen therapy
CPT/HCPCS: 77063; 77067; G0101

== ENCOUNTER → 2019-03-15 | Outpatient (REF) | payer MEDICARE, MEDICAID ==
[2019-03-15 12:08] LABS: HEMATOCRIT 49.4 % (36.0-47.0); HEMOGLOBIN 15.6 g/dl (12.0-15.5); MEAN CORPUSCULAR HEMOGLOBIN 29.3 pg (27.0-33.0); MEAN CORPUSCULAR HGB CONC 31.6 g/dl (32.0-36.5); MEAN CORPUSCULAR VOLUME 92.7 fl (80.0-96.0); PLATELET COUNT, AUTOMATED 192 10^3/uL (150-450); RED BLOOD COUNT 5.33 10^6/uL (4.00-5.40)
[2019-03-15 12:52] LABS: ALBUMIN 4.3 GM/DL (3.2-5.2); ALT/SGPT 20 U/L (12-78); BILIRUBIN,TOTAL 0.5 MG/DL (0.2-1.0); BLOOD UREA NITROGEN 9 MG/DL (7-18); CALCIUM LEVEL 9.8 MG/DL (8.5-10.1); CARBON DIOXIDE LEVEL 35 MEQ/L (21-32); CHLORIDE LEVEL 98 MEQ/L (98-107); CHOLESTEROL LEVEL 158 MG/DL (<200); CHOLESTEROL RISK RATIO 2.925 (<5); FERRITIN 16 NG/ML (8-252); GLUCOSE, FASTING 97 MG/DL (70-100); HDL CHOLESTEROL 54 MG/DL (>40); IRON (FE) 82 UG/DL (50-170); LDL CHOLESTEROL 78 MG/DL (<100); NON-HDL-C 104 MG/DL; PERCENT SATURATION 17.6 % (13.2-45.0); POTASSIUM SERUM 4.3 MEQ/L (3.5-5.1); SODIUM LEVEL 136 MEQ/L (136-145); TOTAL IRON BINDING CAPACITY 465 UG/DL (250-450); TOTAL PROTEIN 7.8 GM/DL (6.4-8.2); TRIGLYCERIDES LEVEL 130 MG/DL (<150)
[2019-03-15 12:53] LABS: CREATININE FOR GFR 0.67 MG/DL (0.55-1.30); GLOMERULAR FILTRATION RATE > 60.0 (>51)
[2019-03-15 13:07] LABS: HEMOGLOBIN A1c 5.9 %
[2019-03-15 14:00] LABS: TOTAL 25(OH) VITAMIN D 30.5 NG/ML (30.0-100.0); VITAMIN B12 LEVEL 216 PG/ML (247-911)
== END ==
LOC: M SFHCPLAZ 09:16
PROVIDERS: ATTEND Family Medicine
DX: E55.9 Vitamin D deficiency, unspecified (principal); E78.5 Hyperlipidemia, unspecified; G25.2 Other specified forms of tremor; E11.9 Type 2 diabetes mellitus without complications; D50.9 Iron deficiency anemia, unspecified

== ENCOUNTER → 2019-03-25 | Outpatient (CLI) | payer MEDICARE, MEDICAID ==
[2019-03-25 14:05] LABS: THYROID STIMULATING HORMONE 11.2 uIU/ML (0.358-3.740)
== END ==
LOC: M PLALAB 11:56
PROVIDERS: ATTEND Family Medicine
DX: R79.89 Other specified abnormal findings of blood chemistry (principal); E07.9 Disorder of thyroid, unspecified

== ENCOUNTER → 2019-03-28 | Outpatient (CLI) | payer MEDICARE, MEDICAID ==
--- NOTE | 2019-04-17 04:06 | ECWPNPC ---
PATIENT NAME: ERWIN GRULLON : 1965 GENDER: FEMALE VISIT DATE: 03/28/2019 DISCHARGE DATE: 03/28/19 1516 VISIT LOCKED DATE TIME: PHYSICIAN: DILLON GONG RESOURCE: DILLON GONG REASON FOR APPOINTMENT 1. BACK/LEGS/MEDS HISTORY OF PRESENT ILLNESS HISTORY OF PRESENT ILLNESS: ERWIN IS BEING SEEN FOR PERSISTENT LOW BACK PAIN. THERE WAS A CONCERN THAT HER SISTER HAD OF HER BEING TOO SEDATED. ERWIN STATES THAT WHEN PRIMARY CARE STOPPED HER CYCLOBENZAPRINE SHE HAS BEEN WITHOUT SEDATION. SHE NOW LIVES IN [place]. RATING PAIN LEVEL A 6/10. PAIN IS DESCRIBED CONTINUOUS, ACHING AND SORE. FINDS CURRENT MEDICATION HELPFUL AT REDUCING HER PAIN. USES G-TUBE TO ADMINISTER OF LIQUID HYDROCODONE 7.5/325 PER 15 ML SOLUTION. DENIES SIDE EFFECTS. PAIN THE PATIENT DESCRIBES THE PAIN... FALL RISK SCREENING: SCREENING :NO FALLS REPORTED IN THE LAST YEAR CURRENT MEDICATIONS TAKING CLOTRIMAZOLE 10 MG GILBERT 1 GILBERT MOUTH/THROAT FIVE TIMES A DAY TAKING VITAMIN D3 400 UNIT/ML LIQUID 2 ML ORALLY ONCE A DAY TAKING METOPROLOL TARTRATE 25 MG TABLET 1 TABLET ORALLY BID TAKING JEVITY 1.5 TRAM - LIQUID 1.5 CANS VIA G-TUBE THREE TIMES DAILY TAKING CYCLOBENZAPRINE HCL 10 MG TABLET 1 TABLET NEEDED ORALLY BID TAKING GABAPENTIN 600 MG TABLET 1 TABLET ORALLY BID TAKING SODIUM CHLORIDE 0.9 % SOLUTION DIRECTED IRRIGATION TAKING PAROXETINE HCL 20 MG TABLET TAKE ONE TABLET ORALLY ONCE A DAY TAKING PANTOPRAZOLE SODIUM 20 MG TABLET DELAYED RELEASE 1 TABLET ORALLY ONCE A DAY TAKING NEBULIZER - DEVICE DIRECTED DX J44.9 TAKING PRAMIPEXOLE DIHYDROCHLORIDE 0.125 MG TABLET 3 TABLETS ORALLY THREE TIMES A DAY NEEDED TAKING ONDANSETRON HCL 4 MG TABLET 1 TABLET NEEDED ORALLY EVERY 6 HOURS TAKING ALBUTEROL-IPRATROPIUM 2.5-0.5 MG/3ML SOLUTION 3 ML NEBULIZER NEEDED TAKING FORMOTEROL FUMARATE 20 MCG/2ML NEBULIZATION SOLUTION 2 ML INHALATION TWICE A DAY TAKING BUDESONIDE 0.5 MG/2ML SUSPENSION 2 ML INHALATION TWICE A DAY TAKING MIRALAX - PACKET 1 PACKET MIXED WITH 8 OUNCES OF FLUID ORALLY ONCE A DAY TAKING RIVAROXABAN 10 MG TABLET 1 TABLET WITH FOOD ORALLY ONCE A DAY TAKING FERROUS SULFATE 75 (15 FE) MG/ML SOLUTION 5 ML VIA G-TUBE EVERY OTHER DAY TAKING PROCHLORPERAZINE MALEATE 10 MG TABLET TAKE ONE TABLET BY MOUTH THREE TIMES A DAY TAKING ATORVASTATIN CALCIUM 40 MG TABLET TAKE ONE TABLET BY MOUTH EVERY DAY TAKING HYDROCODONE-ACETAMINOPHEN 7.5-325 MG/15ML SOLUTION 15 ML NEEDED ORALLY FOR PAIN Q6H PRN PAIN MDD 60ML TAKING CYANOCOBALAMIN 1000 MCG TABLET SUBLINGUAL 1 TABLET UNDER THE TONGUE AND ALLOW TO DISSOLVE SUBLINGUAL ONCE A DAY TAKING LEVOTHYROXINE SODIUM 25 MCG TABLET 1 TABLET IN THE MORNING ON AN EMPTY STOMACH ORALLY ONCE A DAY NOT-TAKING PREDNISONE 50 MG TABLET 1 TABLET ORALLY ONCE A DAY NOT-TAKING DOXYCYCLINE MONOHYDRATE 100 MG CAPSULE 1 CAPSULE ORALLY BID NOT-TAKING OXYCODONE HCL 5 MG CAPSULE 1 CAPSULE NEEDED ORALLY IR EVERY 6 HOURS NEEDED NOT-TAKING PREDNISONE 20 MG TABLET 2 TABLET ORALLY ONCE A DAY NOT-TAKING ASPIR-81 81 MG TABLET DELAYED RELEASE 1 TABLET ORALLY ONCE A DAY MEDICATION LIST REVIEWED AND RECONCILED WITH THE PATIENT PAST MEDICAL HISTORY HTN GERD HISTORY OF BILATERAL ANKLE FRACTURES MULTIPLE RIB FRACTURES DEC 2012 TO PRESENT ASPIRATION PNEUMONIA 05/2011 PEANUT A SHELL ASPIRATION COPD - DR. BROOKS HISTORY OF TOBACCO USE, IN REMISSION OSTEOPENIA; LAST DEXA 05/2013 HEMORRHOIDS RESTLESS LEG SYNDROME CHRONIC FOOT PROBLEMS REQUIRING SURGERY - DR. 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 NORRIS; REPEAT IN 3 YEARS 02/2017 FEEDING TUBE 02/2017 BILATERAL MODIFIED RADICAL NECK DISSECTION, TOTAL LARYNGECTOMY, TE PUNCTURE PROSTHESIS PLACEMENT, CRICOPHARYNGEAL MYOTOMY 03/20/17 LEFT TOTAL HIP, LEFT FEMUR- ORIF 10/2018 FAMILY HISTORY FATHER: , BREAST CANCER, BILATERAL MASTECTOMIES MOTHER: , LIVER CANCER, BENIGN BREAST MASSES, HTN, DM 1 BROTHER(S) , 3 SISTER(S) - HEALTHY. DENIES HX COLON OR OVARIAN CANCERS. NO CHILDREN. SOCIAL HISTORY GENERAL: TOBACCO USE ARE YOU A:FORMER SMOKER HOW LONG HAS IT BEEN SINCE YOU LAST SMOKED?1-5 YEARS HIV / HEP-C SCREENING HIV TEST OFFERED TO PATIENT:YES DATE OFFERED:07/01/2016 TEST ACCEPTED:NO HEP-C TEST OFFERED TO PATIENT:YES DATE OFFERED:07/01/2016 REASON:PATIENT DECLINED TEST ACCEPTED:NO REASON:PATIENT DECLINED OTHERS AT HOME: WITH SISTER. EDUCATION LEVEL OF EDUCATION:NOT FINISHED HIGH SCHOOL DIET: G TUBE. LANGUAGE LANGUAGES SPOKEN:SERBIAN DOMESTIC VIOLENCE DO YOU FEEL SAFE IN YOUR ENVIRONMENT?YES BMI CARE GOAL FOLLOW-UP ABOVE NORMAL BMI FOLLOW-UPGIVING ENCOURAGEMENT TO EXERCISE RECREATIONAL DRUG USE DRUG USE?NO EXERCISE: NO REGULAR EXERCISE. 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 NEEDED?NO PAIN CLINIC PFS, CLERGY, PUBLIC HEALTH REFERRALS WAS THE PROVIDER NOTIFIED OF ANY PERTINENT INFO?YES HAS THE PATIENT BEEN EDUCATED REGARDING HIS/HER PLAN OF CARE?YES HAS THE PATIENT BEEN EDUCATED REGARDING PAIN, THE RISK FOR PAIN, THE IMPORTANCE OF EFFECTIVE PAIN MANAGEMENT, AND THE PAIN ASSESSMENT PROCESS?YES LATEX QUESTIONNAIRE LATEX ALLERGY : HAVE YOU EVER DEVELOPED ANY TYPE OF REACTION AFTER HANDLING LATEX PRODUCTS SUCH RUBBER GLOVES, CONDOMS, DIAPHRAGMS, BALLOONS, SOCKS, OR UNDERWEAR?NO LATEX ALLERGY : HAVE YOU EVER DEVELOPED ANY TYPE OF REACTION DURING OR AFTER DENTAL APPOINTMENT, VAGINAL/RECTAL EXAMINATION, SURGICAL PROCEDURE, OR ANY OTHER EXPOSURE?NO LATEX RISK : HAVE YOU EVER HAD ANY DIFFICULTY BREATHING OR HIVES AFTER EATING OR HANDLING ANY FRUITS, OR VEGETABLES; SUCH KIWI, BANANAS, STONE FRUITS, OR CHESTNUTSNO LATEX RISK : DO YOU HAVE A PREVIOUS PERSONAL HISTORY OF MORE THAN NINE SURGERIES, SPINA BIFIDA, OR REPEATED CATHERIZATIONS? NO LATEX RISK : ARE YOU FREQUENTLY EXPOSED TO LATEX PRODUCTS IN YOUR OCCUPATION?NO DATE ASKED : 11/23/2018 CAFFEINE CAFFEINE USE?YES 2 CUPS DAILY ADVANCE DIRECTIVE ADVANCE DIRECTIVE DISCUSSED WITH PATIENT:YES HCP - BA (NIECE) BAPTIST [id number] SHINTO MARITAL STATUS: SINGLE. ALCOHOL SCREENING DID YOU HAVE A DRINK CONTAINING ALCOHOL IN THE PAST YEAR?NO POINTS0 INTERPRETATIONNEGATIVE OCCUPATION: DISABLED. SEXUAL HX HAD SEX IN THE LAST 12 MONTHS (VAGINAL, ORAL, OR ANAL)?NO HAVE YOU EVER HAD AN STD?NO REVIEWED WITH PATIENT 11/23/17 1344 JSREVIEWED WITH PT 09/27/18 1328 BVREVIEWED WITH PATIENT 03/28/2019 1432 JS. HOSPITALIZATION/MAJOR DIAGNOSTIC PROCEDURE SURG RELATED TRACH 02/09/17 PNEMONIA 03/06/17 SURGERY 03/20/2017 PNUEMONIA 03/2018 REVIEW OF SYSTEMS REVIEWED BY: PROVIDER: DILLON OLIVERA . CONSTITUTIONAL: ANY CHANGE IN YOUR MEDICAL CONDITION? NO . CHILLS NO . FEVER NO . INFECTION: DO YOU HAVE NEW INFECTIONS? NO . DO YOU HAVE HISTORY OF MRSA? NO . MUSCULOSKELETAL: ANY NEW PATTERNS OF PAIN OR NUMBNESS? NO . GASTROENTEROLOGY: ANY NEW CHANGE IN BOWEL CONTROL? NO . GENITOURINARY: ANY NEW CHANGE IN BLADDER CONTROL? NO . IS THERE A CHANCE YOU COULD BE ? NO . HEMATOLOGY/LYMPH: DO YOU TAKE ANY BLOOD THINNERS? (FOR EXAMPLE- COUMADIN, PLAVIX, AGGRENOX, PLATEL, PRADAXA, OR XARELTO) NO . WHEN WAS YOUR LAST DOSE? DATE: TIME: . NEUROLOGY: HAVE YOU FALLEN IN THE PAST 12 MONTHS? NO . ANY NEW EXTREMITY NUMBNESS OR WEAKNESS? NO . CARDIOLOGY: DO YOU HAVE A PACEMAKER OR DEFIBRILLATOR? NO . RESPIRATORY: HAVE YOU BEEN SICK IN THE PAST WEEK? NO . FEVER NO . FLU LIKE SYMPTOMS? NO . COUGH NO . INTEGUMENTARY: DO YOU HAVE ANY RASHES OR OPEN SORES? NO . ALLERGIC/IMMUNO: ARE YOU ALLERGIC TO IV DYE? NO . ANY NEW ALLERGIES? NO . PSYCHIATRIC: DO YOU HAVE THOUGHTS OF HURTING YOURSELF OR SOMEONE ELSE? NO . ARE YOU ABUSED, NEGLECTED, OR IN AN UNSAFE ENVIRONMENT? NO . ENDOCRINOLOGY: ARE YOU DIABETIC? NO . OTHER: DO YOU NEED ANY PRESCRIPTIONS? NO . IF YES, PLEASE LIST: ____ . ANY NEW PROBLEMS WITH YOUR MEDICATIONS? NO . WHEN DID YOU LAST EAT? ____ . WHEN DID YOU LAST DRINK? ____ . WHAT DID YOU LAST DRINK? ____ . NAME OF PERSON DRIVING YOU HOME? ____ . DO YOU HAVE ANY OTHER QUESTIONS OR CONCERNS NO . VITAL SIGNS WT 111 LBS, HT 59 IN, BMI 22.42 INDEX, BP 133/74 MM HG, HR 70 /MIN, RR 19 /MIN, TEMP 97.0 F, OXYGEN SAT % 92%, SAFE IN ENV? (Y/N) YES, NA INITIALS MS 1432, REVIEWED BY: JAMAAL. EXAMINATION GENERAL EXAMINATION: GENERALAWAKE,ALERT ,PLEASANT . PSYCHAFFECT NORMAL . LUNGS:LUNG BONE ARE CLEAR TO AUSCULTATION BILATERALLY. GOOD MOVEMENT OF AIR . HEART:S1, S2 IN A REGULAR RATE AND RHYTHM. NO SIGNIFICANT MURMURS, RUBS OR GALLOPS NOTED . ASSESSMENTS LUMBAGO OF MULTIPLE SITES IN SPINE WITH SCIATICA - M54.40 (PRIMARY) LEFT HIP PAIN - M25.552 TREATMENT LUMBAGO OF MULTIPLE SITES IN SPINE WITH SCIATICA CONTINUE HYDROCODONE-ACETAMINOPHEN SOLUTION, 7.5-325 MG/15ML, 15 ML NEEDED, ORALLY FOR PAIN, Q6H PRN PAIN MDD 60ML NOTES: ISTOP REGISTRY REVIEWED AND DEMONSTRATES COMPLLIANCE. FORGOT TO BRING IN MEDICATIONUNABLE TO URINATE URINE TOX AT NEXT VISIT, RISKS OF NARCOTIC/OPIOD MEDICATIONS INCLUDES BUT IS NOT LIMITED TO RISK OF DEPENDANCE/DEVELOPMENT OF ADDICTION, MOOD DISTURBANCE AND DEPRESSION, OSTEOPOROSIS, HORMONAL AND LABIDAL CHANGES, RESPIRATORY DEPRESSION AND . PATIENT IS ADVISED NOT TO DRIVE OR DRINK ALCOHOL WHILE ON THESE MEDICATIONS. DISPOSITION & COMMUNICATION FOLLOW UP 4 WEEKS (REASON: MED MGMNT) ELECTRONICALLY SIGNED BY JAROD MCGARRY ON 04/16/2019 AT 02:08 PM EST DISCLAIMER : THIS IS A VISIT SUMMARY EXTRACTED FROM THE [employer] CHART. IT IS NOT A COPY OF THE [employer] PROGRESS NOTE. EMILY
== END ==
LOC: M PAIN 14:15
PROVIDERS: ATTEND Nurse Practitioner Family
DX: M54.40 Lumbago with sciatica, unspecified side (principal); M25.552 Pain in left hip; I10 Essential (primary) hypertension; K21.9 Gastro-esophageal reflux disease without esophagitis; J44.9 Chronic obstructive pulmonary disease, unspecified; G25.81 Restless legs syndrome; Z86.59 Personal history of other mental and behavioral disorders; R73.03 Prediabetes; E55.9 Vitamin D deficiency, unspecified; Z96.652 Presence of left artificial knee joint; Z96.642 Presence of left artificial hip joint; Z87.891 Personal history of nicotine dependence; Z88.1 Allergy status to other antibiotic agents; Z79.899 Other long term (current) drug therapy

== ENCOUNTER → 2019-04-25 | Outpatient (CLI) | payer MEDICARE, MEDICAID ==
--- NOTE | 2019-05-15 03:09 | ECWPNPC ---
PATIENT NAME: ERWIN GRULLON : 1965 GENDER: FEMALE VISIT DATE: 04/25/2019 DISCHARGE DATE: 04/25/19 1521 VISIT LOCKED DATE TIME: PHYSICIAN: DILLON GONG RESOURCE: DILLON GONG REASON FOR APPOINTMENT 1. 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 PAIN THE PATIENT DESCRIBES THE PAIN... FALL RISK SCREENING: SCREENING :NO FALLS REPORTED IN THE LAST YEAR CURRENT MEDICATIONS TAKING CLOTRIMAZOLE 10 MG GILBERT 1 GILBERT MOUTH/THROAT FIVE TIMES A DAY TAKING VITAMIN D3 400 UNIT/ML LIQUID 2 ML ORALLY ONCE A DAY TAKING METOPROLOL TARTRATE 25 MG TABLET 1 TABLET ORALLY BID TAKING JEVITY 1.5 TRAM - LIQUID 1.5 CANS VIA G-TUBE THREE TIMES DAILY TAKING CYCLOBENZAPRINE HCL 10 MG TABLET 1 TABLET NEEDED ORALLY BID TAKING GABAPENTIN 600 MG TABLET 1 TABLET ORALLY BID TAKING SODIUM CHLORIDE 0.9 % SOLUTION DIRECTED IRRIGATION TAKING PAROXETINE HCL 20 MG TABLET TAKE ONE TABLET ORALLY ONCE A DAY TAKING PANTOPRAZOLE SODIUM 20 MG TABLET DELAYED RELEASE 1 TABLET ORALLY ONCE A DAY TAKING NEBULIZER - DEVICE DIRECTED DX J44.9 TAKING PRAMIPEXOLE DIHYDROCHLORIDE 0.125 MG TABLET 3 TABLETS ORALLY THREE TIMES A DAY NEEDED TAKING ONDANSETRON HCL 4 MG TABLET 1 TABLET NEEDED ORALLY EVERY 6 HOURS TAKING ALBUTEROL-IPRATROPIUM 2.5-0.5 MG/3ML SOLUTION 3 ML NEBULIZER NEEDED TAKING FORMOTEROL FUMARATE 20 MCG/2ML NEBULIZATION SOLUTION 2 ML INHALATION TWICE A DAY TAKING BUDESONIDE 0.5 MG/2ML SUSPENSION 2 ML INHALATION TWICE A DAY TAKING MIRALAX - PACKET 1 PACKET MIXED WITH 8 OUNCES OF FLUID ORALLY ONCE A DAY TAKING RIVAROXABAN 10 MG TABLET 1 TABLET WITH FOOD ORALLY ONCE A DAY TAKING FERROUS SULFATE 75 (15 FE) MG/ML SOLUTION 5 ML VIA G-TUBE EVERY OTHER DAY TAKING PROCHLORPERAZINE MALEATE 10 MG TABLET TAKE ONE TABLET BY MOUTH THREE TIMES A DAY TAKING CYANOCOBALAMIN 1000 MCG TABLET SUBLINGUAL 1 TABLET UNDER THE TONGUE AND ALLOW TO DISSOLVE SUBLINGUAL ONCE A DAY TAKING LEVOTHYROXINE SODIUM 25 MCG TABLET 1 TABLET IN THE MORNING ON AN EMPTY STOMACH ORALLY ONCE A DAY TAKING ATORVASTATIN CALCIUM 40 MG TABLET 1 TABLET ORALLY ONCE A DAY TAKING GABAPENTIN 600 MG TABLET TAKE ONE TABLET BY MOUTH FIVES TIMES DAILY TAKING HYDROCODONE-ACETAMINOPHEN 7.5-325 MG/15ML SOLUTION 15 ML NEEDED ORALLY FOR PAIN Q6H PRN PAIN MDD 60ML NOT-TAKING PREDNISONE 50 MG TABLET 1 TABLET ORALLY ONCE A DAY NOT-TAKING DOXYCYCLINE MONOHYDRATE 100 MG CAPSULE 1 CAPSULE ORALLY BID NOT-TAKING OXYCODONE HCL 5 MG CAPSULE 1 CAPSULE NEEDED ORALLY IR EVERY 6 HOURS NEEDED NOT-TAKING PREDNISONE 20 MG TABLET 2 TABLET ORALLY ONCE A DAY NOT-TAKING ASPIR-81 81 MG TABLET DELAYED RELEASE 1 TABLET ORALLY ONCE A DAY MEDICATION LIST REVIEWED AND RECONCILED WITH THE PATIENT PAST MEDICAL HISTORY HTN GERD HISTORY OF BILATERAL ANKLE FRACTURES MULTIPLE RIB FRACTURES DEC 2012 TO PRESENT ASPIRATION PNEUMONIA 05/2011 PEANUT A SHELL ASPIRATION COPD - DR. BROOKS HISTORY OF TOBACCO USE, IN REMISSION OSTEOPENIA; LAST DEXA 05/2013 HEMORRHOIDS RESTLESS LEG SYNDROME CHRONIC FOOT PROBLEMS REQUIRING SURGERY - DR. 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 NORRIS; REPEAT IN 3 YEARS 02/2017 FEEDING TUBE 02/2017 BILATERAL MODIFIED RADICAL NECK DISSECTION, TOTAL LARYNGECTOMY, TE PUNCTURE PROSTHESIS PLACEMENT, CRICOPHARYNGEAL MYOTOMY 03/20/17 LEFT TOTAL HIP, LEFT FEMUR- ORIF 10/2018 FAMILY HISTORY FATHER: , BREAST CANCER, BILATERAL MASTECTOMIES MOTHER: , LIVER CANCER, BENIGN BREAST MASSES, HTN, DM 1 BROTHER(S) , 3 SISTER(S) - HEALTHY. DENIES HX COLON OR OVARIAN CANCERS. NO CHILDREN. SOCIAL HISTORY GENERAL: TOBACCO USE ARE YOU A:FORMER SMOKER HOW LONG HAS IT BEEN SINCE YOU LAST SMOKED?1-5 YEARS HIV / HEP-C SCREENING HIV TEST OFFERED TO PATIENT:YES DATE OFFERED:07/01/2016 TEST ACCEPTED:NO HEP-C TEST OFFERED TO PATIENT:YES DATE OFFERED:07/01/2016 REASON:PATIENT DECLINED TEST ACCEPTED:NO REASON:PATIENT DECLINED OTHERS AT HOME: WITH SISTER. EDUCATION LEVEL OF EDUCATION:NOT FINISHED HIGH SCHOOL DIET: G TUBE. LANGUAGE LANGUAGES SPOKEN:FRISIAN DOMESTIC VIOLENCE DO YOU FEEL SAFE IN YOUR ENVIRONMENT?YES BMI CARE GOAL FOLLOW-UP ABOVE NORMAL BMI FOLLOW-UPGIVING ENCOURAGEMENT TO EXERCISE RECREATIONAL DRUG USE DRUG USE?NO EXERCISE: NO REGULAR EXERCISE. 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 PORTABLE NEEDED?NO PAIN CLINIC PFS, CLERGY, PUBLIC HEALTH REFERRALS WAS THE PROVIDER NOTIFIED OF ANY PERTINENT INFO?YES HAS THE PATIENT BEEN EDUCATED REGARDING HIS/HER PLAN OF CARE?YES HAS THE PATIENT BEEN EDUCATED REGARDING PAIN, THE RISK FOR PAIN, THE IMPORTANCE OF EFFECTIVE PAIN MANAGEMENT, AND THE PAIN ASSESSMENT PROCESS?YES LATEX QUESTIONNAIRE LATEX ALLERGY : HAVE YOU EVER DEVELOPED ANY TYPE OF REACTION AFTER HANDLING LATEX PRODUCTS SUCH RUBBER GLOVES, CONDOMS, DIAPHRAGMS, BALLOONS, SOCKS, OR UNDERWEAR?NO LATEX ALLERGY : HAVE YOU EVER DEVELOPED ANY TYPE OF REACTION DURING OR AFTER DENTAL APPOINTMENT, VAGINAL/RECTAL EXAMINATION, SURGICAL PROCEDURE, OR ANY OTHER EXPOSURE?NO LATEX RISK : HAVE YOU EVER HAD ANY DIFFICULTY BREATHING OR HIVES AFTER EATING OR HANDLING ANY FRUITS, OR VEGETABLES; SUCH KIWI, BANANAS, STONE FRUITS, OR CHESTNUTSNO LATEX RISK : DO YOU HAVE A PREVIOUS PERSONAL HISTORY OF MORE THAN NINE SURGERIES, SPINA BIFIDA, OR REPEATED CATHERIZATIONS? NO LATEX RISK : ARE YOU FREQUENTLY EXPOSED TO LATEX PRODUCTS IN YOUR OCCUPATION?NO DATE ASKED : 11/23/2018 CAFFEINE CAFFEINE USE?YES 2 CUPS DAILY ADVANCE DIRECTIVE ADVANCE DIRECTIVE DISCUSSED WITH PATIENT:YES HCP - BA (NIECE) RESTORATIONISM [id number] RESTORATIONIST MARITAL STATUS: SINGLE. ALCOHOL SCREENING DID YOU HAVE A DRINK CONTAINING ALCOHOL IN THE PAST YEAR?NO POINTS0 INTERPRETATIONNEGATIVE OCCUPATION: DISABLED. SEXUAL HX HAD SEX IN THE LAST 12 MONTHS (VAGINAL, ORAL, OR ANAL)?NO HAVE YOU EVER HAD AN STD?NO HOSPITALIZATION/MAJOR DIAGNOSTIC PROCEDURE SURG RELATED TRACH 02/09/17 PNEMONIA 03/06/17 SURGERY 03/20/2017 PNUEMONIA 03/2018 REVIEW OF SYSTEMS REVIEWED BY: PROVIDER: DILLON OLIVERA . CONSTITUTIONAL: ANY CHANGE IN YOUR MEDICAL CONDITION? NO . CHILLS NO . FEVER NO . INFECTION: DO YOU HAVE NEW INFECTIONS? NO . DO YOU HAVE HISTORY OF MRSA? NO . MUSCULOSKELETAL: ANY NEW PATTERNS OF PAIN OR NUMBNESS? NO . GASTROENTEROLOGY: ANY NEW CHANGE IN BOWEL CONTROL? NO . GENITOURINARY: ANY NEW CHANGE IN BLADDER CONTROL? NO . IS THERE A CHANCE YOU COULD BE ? NO . HEMATOLOGY/LYMPH: DO YOU TAKE ANY BLOOD THINNERS? (FOR EXAMPLE- COUMADIN, PLAVIX, AGGRENOX, PLATEL, PRADAXA, OR XARELTO) NO . WHEN WAS YOUR LAST DOSE? DATE: TIME: . NEUROLOGY: HAVE YOU FALLEN IN THE PAST 12 MONTHS? NO . ANY NEW EXTREMITY NUMBNESS OR WEAKNESS? NO . CARDIOLOGY: DO YOU HAVE A PACEMAKER OR DEFIBRILLATOR? NO . RESPIRATORY: HAVE YOU BEEN SICK IN THE PAST WEEK? NO . FEVER NO . FLU LIKE SYMPTOMS? NO . COUGH NO . INTEGUMENTARY: DO YOU HAVE ANY RASHES OR OPEN SORES? NO . ALLERGIC/IMMUNO: ARE YOU ALLERGIC TO IV DYE? NO . ANY NEW ALLERGIES? NO . PSYCHIATRIC: DO YOU HAVE THOUGHTS OF HURTING YOURSELF OR SOMEONE ELSE? NO . ARE YOU ABUSED, NEGLECTED, OR IN AN UNSAFE ENVIRONMENT? NO . ENDOCRINOLOGY: ARE YOU DIABETIC? NO . OTHER: DO YOU NEED ANY PRESCRIPTIONS? NO . IF YES, PLEASE LIST: ____ . ANY NEW PROBLEMS WITH YOUR MEDICATIONS? NO . WHEN DID YOU LAST EAT? ____ . WHEN DID YOU LAST DRINK? ____ . WHAT DID YOU LAST DRINK? ____ . NAME OF PERSON DRIVING YOU HOME? ____ . DO YOU HAVE ANY OTHER QUESTIONS OR CONCERNS NO . VITAL SIGNS WT 112.4 LBS, HT 59 IN, BMI 22.70 INDEX, BP 110/58 MM HG, HR 73 /MIN, RR 18 /MIN, TEMP 97.1 F, OXYGEN SAT % 91%, SAFE IN ENV? (Y/N) YES, NA INITIALS AW 1447, REVIEWED BY: JAMAAL. EXAMINATION GENERAL EXAMINATION: GENERALAWAKE,ALERT ,PLEASANT . PSYCHAFFECT NORMAL . LUNGS:LUNG BONE ARE CLEAR TO AUSCULTATION BILATERALLY. GOOD MOVEMENT OF AIR . HEART:S1, S2 IN A REGULAR RATE AND RHYTHM. NO SIGNIFICANT MURMURS, RUBS OR GALLOPS NOTED . ASSESSMENTS LUMBAGO OF MULTIPLE SITES IN SPINE WITH SCIATICA - M54.40 (PRIMARY) CHRONIC PRESCRIPTION OPIATE USE - Z79.891 TREATMENT LUMBAGO OF MULTIPLE SITES IN SPINE WITH SCIATICA CONTINUE CYCLOBENZAPRINE HCL TABLET, 10 MG, 1 TABLET NEEDED, ORALLY, BID CONTINUE HYDROCODONE-ACETAMINOPHEN SOLUTION, 7.5-325 MG/15ML, 15 ML NEEDED, ORALLY FOR PAIN, Q6H PRN PAIN MDD 60ML NOTES: OPTION FOR EPIDURAL INJECTIONS WERE DISCUSSED WITH THE PATIENT. FDA CONCERNS AND WARNING WERE REVIEWED INCLUDING THE RISK OF BLEEDING, RISK OF INFECTION, RISK OF INCREASED PAIN OR NEURALGIA, AND RISK OF PARALYSIS. PATIENT'S QUESTIONS WERE ANSWERED AND HE/SHE WISHES TO MOVE FORWARD WITH EPIDURAL INJECTION. URINE TOX TODAY, RISKS OF NARCOTIC/OPIOD MEDICATIONS INCLUDES BUT IS NOT LIMITED TO RISK OF DEPENDANCE/DEVELOPMENT OF ADDICTION, MOOD DISTURBANCE AND DEPRESSION, OSTEOPOROSIS, HORMONAL AND LABIDAL CHANGES, RESPIRATORY DEPRESSION AND . PATIENT IS ADVISED NOT TO DRIVE OR DRINK ALCOHOL WHILE ON THESE MEDICATIONS. PROCEDURE CODES [id number] ESTABILISHED PATIENT [facility] FACILITY CHARGE DISPOSITION & COMMUNICATION FOLLOW UP 3 MONTHS (REASON: MED MGMNT) ELECTRONICALLY SIGNED BY JAROD MCGARRY ON 05/14/2019 AT 02:58 PM EDT DISCLAIMER : THIS IS A VISIT SUMMARY EXTRACTED FROM THE [employer] CHART. IT IS NOT A COPY OF THE [employer] PROGRESS NOTE. EMILY
== END ==
LOC: M PAIN 14:15
PROVIDERS: ATTEND Nurse Practitioner Family
DX: M54.40 Lumbago with sciatica, unspecified side (principal); I10 Essential (primary) hypertension; K21.9 Gastro-esophageal reflux disease without esophagitis; Z87.81 Personal history of (healed) traumatic fracture; J44.9 Chronic obstructive pulmonary disease, unspecified; Z87.891 Personal history of nicotine dependence; M85.80 Other specified disorders of bone density and structure, unspecified site; G25.81 Restless legs syndrome; F41.9 Anxiety disorder, unspecified; E55.9 Vitamin D deficiency, unspecified; E83.42 Hypomagnesemia; G89.29 Other chronic pain; R73.03 Prediabetes; Z79.891 Long term (current) use of opiate analgesic; Z79.899 Other long term (current) drug therapy; Z88.1 Allergy status to other antibiotic agents

== ENCOUNTER → 2019-06-13 | Outpatient (REF) | payer MEDICARE, MEDICAID ==
[~2019-06-13] MED LIST changes: +CYCL-707 PO; -CYCL10TA PO
[2019-06-13 18:07] LABS: HEMATOCRIT 42.7 % (36.0-47.0); HEMOGLOBIN 14.2 g/dl (12.0-15.5); MEAN CORPUSCULAR HEMOGLOBIN 29.4 pg (27.0-33.0); MEAN CORPUSCULAR HGB CONC 33.3 g/dl (32.0-36.5); MEAN CORPUSCULAR VOLUME 88.4 fl (80.0-96.0); PLATELET COUNT, AUTOMATED 194 10^3/uL (150-450); RED BLOOD COUNT 4.83 10^6/uL (4.00-5.40)
[2019-06-13 18:21] LABS: BLOOD UREA NITROGEN 14 MG/DL (7-18); CALCIUM LEVEL 9.4 MG/DL (8.5-10.1); CARBON DIOXIDE LEVEL 30 MEQ/L (21-32); CHLORIDE LEVEL 96 MEQ/L (98-107); FREE T4 0.98 NG/DL (0.76-1.46); GLOMERULAR FILTRATION RATE > 60.0 (>51); GLUCOSE, FASTING 120 MG/DL (70-100); POTASSIUM SERUM 4.6 MEQ/L (3.5-5.1); SODIUM LEVEL 132 MEQ/L (136-145)
[2019-06-13 18:24] LABS: VITAMIN B12 LEVEL 1018 PG/ML (247-911)
== END ==
LOC: M SFHCPLAZ 15:10
PROVIDERS: ATTEND Family Medicine
DX: D58.2 Other hemoglobinopathies (principal); E03.9 Hypothyroidism, unspecified; I10 Essential (primary) hypertension; E53.8 Deficiency of other specified B group vitamins
CPT/HCPCS: 80048; 82607; 84439; 84443; 85027; G0463

== ENCOUNTER → 2019-06-25 | Outpatient (CLI) | payer MEDICARE, MEDICAID ==
--- NOTE | 2019-06-27 04:00 | ECWPNPC ---
PATIENT NAME: ERWIN GRULLON : 1965 GENDER: FEMALE VISIT DATE: 06/25/2019 DISCHARGE DATE: 06/25/19 1506 VISIT LOCKED DATE TIME: PHYSICIAN: DILLON GONG RESOURCE: DILLON GONG REASON FOR APPOINTMENT 1. BACK/LEGS- SISTER CLEARED HISTORY OF PRESENT ILLNESS HISTORY OF PRESENT ILLNESS: HERE FOR FOLLOW-UP OF CHRONIC GENERALIZED BACK PAIN AND JOINT PAIN. CONTINUES WITH HYDROCODONE LIQUID, WHICH SHE FINDS EFFECTIVE AT REDUCING PAIN AND KEEPING HER FUNCTIONAL. RATING PAIN VAS 6/10. DENIES ADVERSE EFFECTS WITH HER MEDICATIONS. PAIN IS AGGRAVATED BY COLD WEATHER. PAIN IS RELIEVED SOMEWHAT WITH MEDICATION AND WARMTH. PAIN THE PATIENT DESCRIBES THE PAIN... FALL RISK SCREENING: SCREENING :NO FALLS REPORTED IN THE LAST YEAR CURRENT MEDICATIONS TAKING CLOTRIMAZOLE 10 MG GILBERT 1 GILBERT MOUTH/THROAT FIVE TIMES A DAY TAKING VITAMIN D3 400 UNIT/ML LIQUID 2 ML ORALLY ONCE A DAY TAKING JEVITY 1.5 TRAM - LIQUID 1.5 CANS VIA G-TUBE THREE TIMES DAILY TAKING SODIUM CHLORIDE 0.9 % SOLUTION DIRECTED IRRIGATION TAKING PANTOPRAZOLE SODIUM 20 MG TABLET DELAYED RELEASE 1 TABLET ORALLY ONCE A DAY TAKING NEBULIZER - DEVICE DIRECTED DX J44.9 TAKING ONDANSETRON HCL 4 MG TABLET 1 TABLET NEEDED ORALLY EVERY 6 HOURS TAKING MIRALAX - PACKET 1 PACKET MIXED WITH 8 OUNCES OF FLUID ORALLY ONCE A DAY TAKING RIVAROXABAN 10 MG TABLET 1 TABLET WITH FOOD ORALLY ONCE A DAY TAKING FERROUS SULFATE 75 (15 FE) MG/ML SOLUTION 5 ML VIA G-TUBE EVERY OTHER DAY TAKING PROCHLORPERAZINE MALEATE 10 MG TABLET TAKE ONE TABLET BY MOUTH THREE TIMES A DAY TAKING PAROXETINE HCL 20 MG TABLET TAKE ONE TABLET BY MOUTH EVERY DAY TAKING PRAMIPEXOLE DIHYDROCHLORIDE 0.125 MG TABLET 3 TABLETS ORALLY THREE TIMES A DAY NEEDED TAKING ATORVASTATIN CALCIUM 40 MG TABLET 1 TABLET ORALLY ONCE A DAY TAKING BUDESONIDE 0.5 MG/2ML SUSPENSION 2 ML INHALATION TWICE A DAY TAKING FORMOTEROL FUMARATE 20 MCG/2ML NEBULIZATION SOLUTION 2 ML INHALATION TWICE A DAY TAKING ALBUTEROL-IPRATROPIUM 2.5-0.5 MG/3ML SOLUTION 3 ML NEBULIZER NEEDED TAKING METOPROLOL TARTRATE 25 MG TABLET 1 TABLET ORALLY BID TAKING GABAPENTIN 600 MG TABLET 1 TABLET ORALLY BID TAKING LEVOTHYROXINE SODIUM 25 MCG TABLET 1 TABLET IN THE MORNING ON AN EMPTY STOMACH ORALLY ONCE A DAY TAKING HYDROCODONE-ACETAMINOPHEN 7.5-325 MG/15ML SOLUTION 15 ML NEEDED ORALLY FOR PAIN Q6H PRN PAIN MDD 60ML TAKING ASPIRIN 81 MG TABLET DELAYED RELEASE 1 TABLET ORALLY ONCE A DAY MEDICATION LIST REVIEWED AND RECONCILED WITH THE PATIENT PAST MEDICAL HISTORY HTN GERD HISTORY OF BILATERAL ANKLE FRACTURES MULTIPLE RIB FRACTURES DEC 2012 TO PRESENT ASPIRATION PNEUMONIA 05/2011 PEANUT A SHELL ASPIRATION COPD - DR. BROOKS HISTORY OF TOBACCO USE, IN REMISSION OSTEOPENIA; LAST DEXA 05/2013 HEMORRHOIDS RESTLESS LEG SYNDROME CHRONIC FOOT PROBLEMS REQUIRING SURGERY - DR. 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 NORRIS; REPEAT IN 3 YEARS 02/2017 FEEDING TUBE 02/2017 BILATERAL MODIFIED RADICAL NECK DISSECTION, TOTAL LARYNGECTOMY, TE PUNCTURE PROSTHESIS PLACEMENT, CRICOPHARYNGEAL MYOTOMY 03/20/17 LEFT TOTAL HIP, LEFT FEMUR- ORIF 10/2018 FAMILY HISTORY FATHER: , BREAST CANCER, BILATERAL MASTECTOMIES MOTHER: , LIVER CANCER, BENIGN BREAST MASSES, HTN, DM 1 BROTHER(S) , 3 SISTER(S) - HEALTHY. DENIES HX COLON OR OVARIAN CANCERS. NO CHILDREN. SOCIAL HISTORY GENERAL: TOBACCO USE ARE YOU A:FORMER SMOKER HOW LONG HAS IT BEEN SINCE YOU LAST SMOKED?1-5 YEARS LATEX QUESTIONNAIRE LATEX ALLERGY : HAVE YOU EVER DEVELOPED ANY TYPE OF REACTION AFTER HANDLING LATEX PRODUCTS SUCH RUBBER GLOVES, CONDOMS, DIAPHRAGMS, BALLOONS, SOCKS, OR UNDERWEAR?NO LATEX ALLERGY : HAVE YOU EVER DEVELOPED ANY TYPE OF REACTION DURING OR AFTER DENTAL APPOINTMENT, VAGINAL/RECTAL EXAMINATION, SURGICAL PROCEDURE, OR ANY OTHER EXPOSURE?NO DATE ASKED : 11/23/2018 LATEX RISK : HAVE YOU EVER HAD ANY DIFFICULTY BREATHING OR HIVES AFTER EATING OR HANDLING ANY FRUITS, OR VEGETABLES; SUCH KIWI, BANANAS, STONE FRUITS, OR CHESTNUTSNO LATEX RISK : DO YOU HAVE A PREVIOUS PERSONAL HISTORY OF MORE THAN NINE SURGERIES, SPINA BIFIDA, OR REPEATED CATHERIZATIONS? NO LATEX RISK : ARE YOU FREQUENTLY EXPOSED TO LATEX PRODUCTS IN YOUR OCCUPATION?NO BMI CARE GOAL FOLLOW-UP ABOVE NORMAL BMI FOLLOW-UPGIVING ENCOURAGEMENT TO EXERCISE ALCOHOL SCREENING DID YOU HAVE A DRINK CONTAINING ALCOHOL IN THE PAST YEAR?NO POINTS0 INTERPRETATIONNEGATIVE RECREATIONAL DRUG USE DRUG USE?NO DENIES 06/25/19 CAFFEINE CAFFEINE USE?YES 2 CUPS DAILY SEXUAL HX HAD SEX IN THE LAST 12 MONTHS (VAGINAL, ORAL, OR ANAL)?NO HAVE YOU EVER HAD AN STD?NO HIV / HEP-C SCREENING HIV TEST OFFERED TO PATIENT:YES DATE OFFERED:07/01/2016 TEST ACCEPTED:NO HEP-C TEST OFFERED TO PATIENT:YES DATE OFFERED:07/01/2016 REASON:PATIENT DECLINED TEST ACCEPTED:NO REASON:PATIENT DECLINED SCIENTOLOGY [id number] [employer] LANGUAGE LANGUAGES SPOKEN:TAMAZIGHT EDUCATION LEVEL OF EDUCATION:NOT FINISHED HIGH SCHOOL 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, WALKER ADMINISTRATIVE INTERN NEEDED?NO DOMESTIC VIOLENCE DO YOU FEEL SAFE IN YOUR ENVIRONMENT?YES OCCUPATION: DISABLED. DIET: G TUBE. EXERCISE: NO REGULAR EXERCISE. MARITAL STATUS: SINGLE. OTHERS AT HOME: WITH SISTER. NEW PATIENT PAIN DIARY TODAY'S VISIT 06/25/19 PATIENT DESCRIBES PAIN :ACHING, HAVE IT ALL THE TIME, STABBING, SORE FROM 0-10, WHAT LEVEL IS YOUR PAIN TODAY?6 PRECIPITATING FACTORS WALKING, MOVEMENT ALLEVIATING FACTORS WARM WEATHER, REST PAIN CLINIC PFS, CLERGY, PUBLIC HEALTH REFERRALS WAS THE PROVIDER NOTIFIED OF ANY PERTINENT INFO?YES HAS THE PATIENT BEEN EDUCATED REGARDING HIS/HER PLAN OF CARE?YES HAS THE PATIENT BEEN EDUCATED REGARDING PAIN, THE RISK FOR PAIN, THE IMPORTANCE OF EFFECTIVE PAIN MANAGEMENT, AND THE PAIN ASSESSMENT PROCESS?YES ADVANCE DIRECTIVE ADVANCE DIRECTIVE DISCUSSED WITH PATIENT:YES HCP - ENMA EWING ([place]) [phone] HOSPITALIZATION/MAJOR DIAGNOSTIC PROCEDURE SURG RELATED TRACH 02/09/17 PNEMONIA 03/06/17 SURGERY 03/20/2017 PNEUMONIA 03/2018 REVIEW OF SYSTEMS REVIEWED BY: PROVIDER: DILLNO OLIVERA . CONSTITUTIONAL: ANY CHANGE IN YOUR MEDICAL CONDITION? NO . CHILLS NO . FEVER NO . INFECTION: DO YOU HAVE NEW INFECTIONS? NO . DO YOU HAVE HISTORY OF MRSA? NO . MUSCULOSKELETAL: ANY NEW PATTERNS OF PAIN OR NUMBNESS? NO . GASTROENTEROLOGY: ANY NEW CHANGE IN BOWEL CONTROL? NO . GENITOURINARY: ANY NEW CHANGE IN BLADDER CONTROL? NO . IS THERE A CHANCE YOU COULD BE ? NO . HEMATOLOGY/LYMPH: DO YOU TAKE ANY BLOOD THINNERS? (FOR EXAMPLE- COUMADIN, PLAVIX, AGGRENOX, PLATEL, PRADAXA, OR XARELTO) NO . WHEN WAS YOUR LAST DOSE? DATE: TIME: . NEUROLOGY: HAVE YOU FALLEN IN THE PAST 12 MONTHS? NO . ANY NEW EXTREMITY NUMBNESS OR WEAKNESS? NO . CARDIOLOGY: DO YOU HAVE A PACEMAKER OR DEFIBRILLATOR? NO . RESPIRATORY: HAVE YOU BEEN SICK IN THE PAST WEEK? NO . FEVER NO . FLU LIKE SYMPTOMS? NO . COUGH NO . INTEGUMENTARY: DO YOU HAVE ANY RASHES OR OPEN SORES? NO . ALLERGIC/IMMUNO: ARE YOU ALLERGIC TO IV DYE? NO . ANY NEW ALLERGIES? NO . PSYCHIATRIC: DO YOU HAVE THOUGHTS OF HURTING YOURSELF OR SOMEONE ELSE? NO . ARE YOU ABUSED, NEGLECTED, OR IN AN UNSAFE ENVIRONMENT? NO . ENDOCRINOLOGY: ARE YOU DIABETIC? NO . OTHER: DO YOU NEED ANY PRESCRIPTIONS? YES . IF YES, PLEASE LIST: HYDROCODONE . ANY NEW PROBLEMS WITH YOUR MEDICATIONS? NO . WHEN DID YOU LAST EAT? ____ . WHEN DID YOU LAST DRINK? ____ . WHAT DID YOU LAST DRINK? ____ . NAME OF PERSON DRIVING YOU HOME? ____ . DO YOU HAVE ANY OTHER QUESTIONS OR CONCERNS NO . VITAL SIGNS WT 113.4 LBS, HT 59 IN, BMI 22.90 INDEX, BP 169/70 MM HG, HR 84 /MIN, RR 18 /MIN, TEMP 97.0 F, OXYGEN SAT % 95%, NA INITIALS AW 1428, REVIEWED BY: FREDRICK. EXAMINATION GENERAL EXAMINATION: GENERALAWAKE,ALERT ,PLEASANT . PSYCHAFFECT NORMAL . LUNGS:LUNG BONE ARE CLEAR TO AUSCULTATION BILATERALLY. GOOD MOVEMENT OF AIR . HEART:S1, S2 IN A REGULAR RATE AND RHYTHM. NO SIGNIFICANT MURMURS, RUBS OR GALLOPS NOTED . ASSESSMENTS LUMBAGO OF MULTIPLE SITES IN SPINE WITH SCIATICA - M54.40 (PRIMARY) CHRONIC PRESCRIPTION OPIATE USE - Z79.891 TREATMENT LUMBAGO OF MULTIPLE SITES IN SPINE WITH SCIATICA REFILL HYDROCODONE-ACETAMINOPHEN SOLUTION, 7.5-325 MG/15ML, 15 ML NEEDED, ORALLY FOR PAIN, Q6H PRN PAIN MDD 60ML, 30 DAYS, 1800, REFILLS 0 NOTES: CONTINUE WALKING/EXERCISE AT HOME. CONTINUE CURRENT CHRONIC PAIN MEDICATIONS. FOLLOW-UP IS SCHEDULED IN 3 MONTHS. , ISTOP REGISTRY REVIEWED AND DEMONSTRATES COMPLLIANCE. BRINGS IN MEDICATIONS WHICH IS APPROPRIATE FOR WHAT WAS DISPENSED. RECENT URINE TOXICOLOGY REVIEWED. NO UNAUTHORIZED MEDICATIONS. NO ILLICIT SUBSTANCES AND PRESCRIBED MEDICATIONS WERE PRESENT. PROCEDURE CODES FA211 ESTABILISHED PATIENT [facility] FACILITY CHARGE DISPOSITION & COMMUNICATION FOLLOW UP 3 MONTHS (REASON: MED MGMNT) ELECTRONICALLY SIGNED BY JAROD MCGARRY ON 06/26/2019 AT 03:56 PM EDT DISCLAIMER : THIS IS A VISIT SUMMARY EXTRACTED FROM THE [employer] CHART. IT IS NOT A COPY OF THE [employer] PROGRESS NOTE. EMILY
== END ==
LOC: M PAIN 14:15
PROVIDERS: ATTEND Nurse Practitioner Family
DX: M54.40 Lumbago with sciatica, unspecified side (principal); G89.29 Other chronic pain; I10 Essential (primary) hypertension; K21.9 Gastro-esophageal reflux disease without esophagitis; J44.9 Chronic obstructive pulmonary disease, unspecified; G25.81 Restless legs syndrome; Z86.59 Personal history of other mental and behavioral disorders; E55.9 Vitamin D deficiency, unspecified; R73.03 Prediabetes; Z96.652 Presence of left artificial knee joint; Z96.642 Presence of left artificial hip joint; Z87.891 Personal history of nicotine dependence; Z88.1 Allergy status to other antibiotic agents; Z79.82 Long term (current) use of aspirin; Z79.899 Other long term (current) drug therapy

== ENCOUNTER → 2019-09-25 | Outpatient (POV) | payer MEDICARE, MEDICAID ==
[~2019-09-25] MED LIST changes: -AMLO10TA5 PO; +AMLO1TAB25 PO; +CALC-212 PO; -CALC600T7 PO
== END ==
LOC: M PAIN 09:00
PROVIDERS: ATTEND Nurse Practitioner Family
DX: M47.816 Spondylosis without myelopathy or radiculopathy, lumbar region (principal); Z79.891 Long term (current) use of opiate analgesic

== ENCOUNTER → 2019-12-02 | Outpatient (REF) | payer MEDICARE, MEDICAID ==
[2019-12-02 14:54] LABS: BASO % 0.6 % (0.0-1.0); EOS # 0.2 10^3/uL (0.0-0.5); EOS % 3.8 % (0.0-3.0); HEMATOCRIT 43.1 % (36.0-47.0); HEMOGLOBIN 13.8 g/dl (12.0-15.5); LYMPH # 0.9 10^3/uL (1.5-5.0); LYMPH % 16.4 % (24.0-44.0); MEAN CORPUSCULAR HEMOGLOBIN 30.2 pg (27.0-33.0); MEAN CORPUSCULAR VOLUME 94.3 fl (80.0-96.0); MONO # 0.5 10^3/uL (0.0-0.8); MONO % 10.1 % (0.0-5.0); NEUTROPHILS # 3.6 10^3/uL (1.5-8.5); NEUTROPHILS % 68.9 % (36.0-66.0); PLATELET COUNT, AUTOMATED 250 10^3/uL (150-450); RED BLOOD COUNT 4.57 10^6/uL (4.00-5.40); WHITE BLOOD COUNT 5.2 10^3/uL (4.0-10.0)
[2019-12-02 15:34] LABS: ALBUMIN 3.8 GM/DL (3.2-5.2); ALT/SGPT 29 U/L (12-78); BILIRUBIN,TOTAL 0.5 MG/DL (0.2-1.0); BLOOD UREA NITROGEN 8 MG/DL (7-18); CALCIUM LEVEL 9.7 MG/DL (8.5-10.1); CARBON DIOXIDE LEVEL 34 MEQ/L (21-32); CHLORIDE LEVEL 96 MEQ/L (98-107); CREATININE FOR GFR 0.65 MG/DL (0.55-1.30); FERRITIN 54 NG/ML (8-252); FREE T4 1.04 NG/DL (0.76-1.46); GLOMERULAR FILTRATION RATE > 60.0 (>51); GLUCOSE, FASTING 89 MG/DL (70-100); IRON (FE) 106 UG/DL (50-170); PERCENT SATURATION 26.2 % (13.2-45.0); POTASSIUM SERUM 4.5 MEQ/L (3.5-5.1); SODIUM LEVEL 135 MEQ/L (136-145); TOTAL 25(OH) VITAMIN D 26.7 NG/ML (30.0-100.0); TOTAL IRON BINDING CAPACITY 404 UG/DL (250-450); TOTAL PROTEIN 7.4 GM/DL (6.4-8.2)
== END ==
LOC: M SFHCPLAZ 12:00
PROVIDERS: ATTEND Family Medicine
DX: R53.83 Other fatigue (principal); D50.9 Iron deficiency anemia, unspecified; E03.9 Hypothyroidism, unspecified; E55.9 Vitamin D deficiency, unspecified
CPT/HCPCS: 36415; 80053; 82306; 82728; 83550; 84439; 84443; 85025; G0463

== ENCOUNTER → 2020-01-20 | Outpatient (CLI) | payer MEDICARE, MEDICAID ==
--- NOTE | 2020-01-25 01:30 | ECWPNPC ---
PATIENT NAME: ERWIN GRULLON : 1965 GENDER: FEMALE VISIT DATE: 01/20/2020 DISCHARGE DATE: 01/20/20 1131 VISIT LOCKED DATE TIME: PHYSICIAN: DILLON GONG PHYSICIAN PAGER NO: ACTIVE RESOURCE: DILLON GONG REASON FOR APPOINTMENT 1. BACK HISTORY OF PRESENT ILLNESS GENERAL: -. FALL RISK SCREENING: SCREENING :NO FALLS REPORTED IN THE LAST YEAR PAIN SCREENING: PATIENT HAS A COMPLAINT OF ACUTE OR CHRONIC PAIN :YES LOCATION OF PAIN:LOW BACK INTENSITY OF PAIN (SCALE OF 1 TO 10):7 WHAT DOES YOUR PAIN FEEL LIKE:ACHING DURATION:CONSTANT PAIN IS INCREASED BY:ACTIVITIES, PROLONGED STANDING NURSING NOTE: -. PAIN CENTER INTAKE QUESTIONS: DO YOU HAVE A HISTORY OF MRSA? :NO DO YOU TAKE A BLOOD THINNERS? :NO DO YOU HAVE ANY BLEEDING DISORDERS? :NO ANY NEW NUMBNESS OR WEAKNESS IN YOUR LEGS OR ARMS? :NO ANY PACEMAKER,DEFIBRILLATOR, OR DORSAL COLUMN STIMULATOR? :NO DO YOU HAVE ANY RASHES OR OPEN SORES? :NO ARE YOU ALLERGIC TO IV DYE? :NO ARE YOU DIABETIC? :NO ANY NEW PROBLEMS WITH YOUR MEDICATIONS? :NO HAVE YOU RECEIVED A VACCINE IN THE PAST 30 DAYS? :NO DO YOU PLAN TO RECEIVE A VACCINE IN THE NEXT 21 DAYS? :NO DO YOU NEED ANY PRESCRIPTION? :NO DO YOU TAKE ANY IMMUNOSUPPRESSIVE MEDICATIONS? :NO IS THERE A CHANCE YOU COULD BE ? :NO ARE YOU BREAST FEEDING? :NO HISTORY OF PRESENT ILLNESS: HERE FOR FOLLOW-UP OF CHRONIC GENERALIZED BACK PAIN AND JOINT PAIN. CONTINUES WITH HYDROCODONE LIQUID, WHICH SHE FINDS EFFECTIVE AT REDUCING PAIN AND KEEPING HER FUNCTIONAL. RATING PAIN VAS 6/10. DENIES ADVERSE EFFECTS WITH HER MEDICATIONS. PAIN IS AGGRAVATED BY COLD WEATHER. PAIN IS RELIEVED SOMEWHAT WITH MEDICATION AND WARMTH. PAIN THE PATIENT DESCRIBES THE PAIN... CURRENT MEDICATIONS TAKING SODIUM CHLORIDE 0.9 % SOLUTION DIRECTED IRRIGATION TAKING NEBULIZER - DEVICE DIRECTED DX J44.9 TAKING BUDESONIDE 0.5 MG/2ML SUSPENSION 2 ML INHALATION TWICE A DAY TAKING FORMOTEROL FUMARATE 20 MCG/2ML NEBULIZATION SOLUTION 2 ML INHALATION TWICE A DAY TAKING ALBUTEROL-IPRATROPIUM 2.5-0.5 MG/3ML SOLUTION 3 ML NEBULIZER NEEDED TAKING ASPIRIN 81 MG TABLET DELAYED RELEASE 1 TABLET ORALLY ONCE A DAY TAKING PROCHLORPERAZINE MALEATE 10 MG TABLET TAKE ONE TABLET BY MOUTH THREE TIMES A DAY ORALLY THREE TIMES A DAY TAKING JEVITY 1.5 TRAM - LIQUID 1.5 CANS VIA G-TUBE THREE TIMES DAILY TAKING GABAPENTIN 600 MG TABLET 1 TABLET ORALLY BID TAKING ATORVASTATIN CALCIUM 40 MG TABLET 1 TABLET ORALLY ONCE A DAY TAKING PRAMIPEXOLE DIHYDROCHLORIDE 0.125 MG TABLET 3 TABLETS ORALLY THREE TIMES A DAY NEEDED TAKING PANTOPRAZOLE SODIUM 20 MG TABLET DELAYED RELEASE 1 TABLET ORALLY ONCE A DAY TAKING LEVOTHYROXINE SODIUM 50 MCG TABLET 1 TABLET IN THE MORNING ON AN EMPTY STOMACH ORALLY ONCE A DAY TAKING PAROXETINE HCL 20 MG TABLET 1 TAB ORALLY DAILY TAKING HYDROCODONE-ACETAMINOPHEN 7.5-325 MG/15ML SOLUTION 15 ML NEEDED ORALLY FOR PAIN Q6H PRN PAIN MDD 60ML NOT-TAKING VITAMIN D3 400 UNIT/ML LIQUID 2 ML ORALLY ONCE A DAY UNKNOWN FERROUS SULFATE 75 (15 FE) MG/ML SOLUTION 5 ML VIA G-TUBE EVERY OTHER DAY MEDICATION LIST REVIEWED AND RECONCILED WITH THE PATIENT PAST MEDICAL HISTORY HTN GERD HISTORY OF BILATERAL ANKLE FRACTURES MULTIPLE RIB FRACTURES DEC 2012 TO PRESENT ASPIRATION PNEUMONIA 05/2011 PEANUT A SHELL ASPIRATION COPD - DR. BROOKS HISTORY OF TOBACCO USE, IN REMISSION OSTEOPENIA; LAST DEXA 05/2013 HEMORRHOIDS RESTLESS LEG SYNDROME CHRONIC FOOT PROBLEMS REQUIRING SURGERY - DR. 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 NORRIS; REPEAT IN 3 YEARS 02/2017 FEEDING TUBE 02/2017 BILATERAL MODIFIED RADICAL NECK DISSECTION, TOTAL LARYNGECTOMY, TE PUNCTURE PROSTHESIS PLACEMENT, CRICOPHARYNGEAL MYOTOMY 03/20/17 LEFT TOTAL HIP, LEFT FEMUR- ORIF 10/2018 FAMILY HISTORY FATHER: , BREAST CANCER, BILATERAL MASTECTOMIES MOTHER: , LIVER CANCER, BENIGN BREAST MASSES, HTN, DM 1 BROTHER(S) , 3 SISTER(S) - HEALTHY. DENIES HX COLON OR OVARIAN CANCERS. NO CHILDREN. SOCIAL HISTORY GENERAL: TOBACCO USE ARE YOU A:FORMER SMOKER HOW LONG HAS IT BEEN SINCE YOU LAST SMOKED?1-5 YEARS LATEX QUESTIONNAIRE LATEX ALLERGY : HAVE YOU EVER DEVELOPED ANY TYPE OF REACTION AFTER HANDLING LATEX PRODUCTS SUCH RUBBER GLOVES, CONDOMS, DIAPHRAGMS, BALLOONS, SOCKS, OR UNDERWEAR?NO LATEX ALLERGY : HAVE YOU EVER DEVELOPED ANY TYPE OF REACTION DURING OR AFTER DENTAL APPOINTMENT, VAGINAL/RECTAL EXAMINATION, SURGICAL PROCEDURE, OR ANY OTHER EXPOSURE?NO LATEX RISK : HAVE YOU EVER HAD ANY DIFFICULTY BREATHING OR HIVES AFTER EATING OR HANDLING ANY FRUITS, OR VEGETABLES; SUCH KIWI, BANANAS, STONE FRUITS, OR CHESTNUTSNO LATEX RISK : DO YOU HAVE A PREVIOUS PERSONAL HISTORY OF MORE THAN NINE SURGERIES, SPINA BIFIDA, OR REPEATED CATHERIZATIONS? NO LATEX RISK : ARE YOU FREQUENTLY EXPOSED TO LATEX PRODUCTS IN YOUR OCCUPATION?NO DATE ASKED : 01/20/2020 BMI CARE GOAL FOLLOW-UP ABOVE NORMAL BMI FOLLOW-UPGIVING ENCOURAGEMENT TO EXERCISE ALCOHOL SCREENING DID YOU HAVE A DRINK CONTAINING ALCOHOL IN THE PAST YEAR?NO POINTS0 INTERPRETATIONNEGATIVE RECREATIONAL DRUG USE DRUG USE?NO DENIES 06/25/19 CAFFEINE CAFFEINE USE?YES 2 CUPS DAILY SEXUAL HX HAD SEX IN THE LAST 12 MONTHS (VAGINAL, ORAL, OR ANAL)?NO HAVE YOU EVER HAD AN STD?NO HIV / HEP-C SCREENING HIV TEST OFFERED TO PATIENT:YES DATE OFFERED:07/01/2016 TEST ACCEPTED:NO HEP-C TEST OFFERED TO PATIENT:YES DATE OFFERED:07/01/2016 REASON:PATIENT DECLINED TEST ACCEPTED:NO REASON:PATIENT DECLINED [id number] 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 DIET: G TUBE. EXERCISE: NO REGULAR EXERCISE. MARITAL STATUS: SINGLE. OTHERS AT HOME: WITH SISTER. TODAY'S VISIT 06/25/19 PATIENT DESCRIBES PAIN :ACHING, HAVE IT ALL THE TIME, STABBING, SORE FROM 0-10, WHAT LEVEL IS YOUR PAIN TODAY?6 PRECIPITATING FACTORS WALKING, MOVEMENT ALLEVIATING FACTORS WARM WEATHER, REST PAIN CLINIC PFS, CLERGY, PUBLIC HEALTH REFERRALS WAS THE PROVIDER NOTIFIED OF ANY PERTINENT INFO?YES HAS THE PATIENT BEEN EDUCATED REGARDING HIS/HER PLAN OF CARE?YES HAS THE PATIENT BEEN EDUCATED REGARDING PAIN, THE RISK FOR PAIN, THE IMPORTANCE OF EFFECTIVE PAIN MANAGEMENT, AND THE PAIN ASSESSMENT PROCESS?YES ADVANCE DIRECTIVE ADVANCE DIRECTIVE DISCUSSED WITH PATIENT:YES HCP - ENMA EWING ([place]) [phone] HOSPITALIZATION/MAJOR DIAGNOSTIC PROCEDURE SURG RELATED TRACH 02/09/17 PNEMONIA 03/06/17 SURGERY 03/20/2017 PNEUMONIA 03/2018 PNEUMONIA 11/2019 REVIEW OF SYSTEMS CONSTITUTIONAL: ANY RECENT FEVER NO . CHILLS NO . WEIGHT CHANGE OF UNKNOWN REASONS NO . GASTROENTEROLOGY: NEW UNEXPLAINABLE CHANGES IN BOWEL CONTROL NO . CONSTIPATION NO . GENITOURINARY: ANY NEW CHANGE IN BLADDER CONTROL? NO . NEUROLOGY: NEW ONSET DIZZINESS OR NEUROLOGICAL CHANGES NOT MENTIONED NO . NEW NUMBNESS OR PAIN PATTERNS NOT MENTIONED AND PERTINENT TO TODAY'S VISIT NO . CARDIOLOGY: NEW CHEST PRESSURE NO . NEW CHEST PAIN NO . RESPIRATORY: UNEXPLAINABLE COUGH NO . NEW SHORTNESS OF BREATH NO . VITAL SIGNS WT 105.4 LBS, HT 59 IN, BMI 21.29 INDEX, BP 164/74 MM HG, HR 88 /MIN, RR 18 /MIN, TEMP 97.3 F, OXYGEN SAT % 96%, NA INITIALS SC 10:39. EXAMINATION GENERAL EXAMINATION: GENERALAWAKE,ALERT ,PLEASANT . PSYCHAFFECT NORMAL . LUNGS:LUNG BONE ARE CLEAR TO AUSCULTATION BILATERALLY. GOOD MOVEMENT OF AIR . HEART:S1, S2 IN A REGULAR RATE AND RHYTHM. NO SIGNIFICANT MURMURS, RUBS OR GALLOPS NOTED . ASSESSMENTS CHRONIC PRESCRIPTION OPIATE USE - Z79.891 (PRIMARY) LUMBAGO OF MULTIPLE SITES IN SPINE WITH SCIATICA - M54.40 TREATMENT CHRONIC PRESCRIPTION OPIATE USE CONTINUE HYDROCODONE-ACETAMINOPHEN SOLUTION, 7.5-325 MG/15ML, 15 ML NEEDED, ORALLY FOR PAIN, Q6H PRN PAIN MDD 60ML NOTES: URINE COLLECTED FOR UTOX P. FAVERO. PROCEDURE CODES FA211 ESTABILISHED PATIENT [facility] FACILITY CHARGE DISPOSITION & COMMUNICATION FOLLOW UP 3 MONTHS (REASON: MEDICATION MANAGEMENT/REVIEW TOXICOLOGY) ELECTRONICALLY SIGNED BY JAROD MCGARRY ON 01/24/2020 AT 02:47 PM EST DISCLAIMER : THIS IS A VISIT SUMMARY EXTRACTED FROM THE [employer] CHART. IT IS NOT A COPY OF THE [employer] PROGRESS NOTE. EMILY
== END ==
LOC: M PAIN 10:00
PROVIDERS: ATTEND Nurse Practitioner Family
DX: M54.40 Lumbago with sciatica, unspecified side (principal); G89.29 Other chronic pain; K21.9 Gastro-esophageal reflux disease without esophagitis; J44.9 Chronic obstructive pulmonary disease, unspecified; G25.81 Restless legs syndrome; R73.03 Prediabetes; Z86.59 Personal history of other mental and behavioral disorders; Z96.652 Presence of left artificial knee joint; Z96.642 Presence of left artificial hip joint; Z93.1 Gastrostomy status; Z87.891 Personal history of nicotine dependence; Z88.1 Allergy status to other antibiotic agents; Z79.82 Long term (current) use of aspirin; Z79.899 Other long term (current) drug therapy; Z23 Encounter for immunization
CPT/HCPCS: 90682; G0008; G0463

== ENCOUNTER → 2020-04-20 | Outpatient (CLI) | payer MEDICARE ==
[~2020-04-20] MED LIST changes: +ASPI-569 PO; -ASPI81TAEC PO
--- NOTE | 2020-04-25 05:41 | ECWPNPC ---
PATIENT NAME: ERWIN GRULLON : 1965 GENDER: FEMALE VISIT DATE: 04/20/2020 DISCHARGE DATE: 04/20/20 1411 VISIT LOCKED DATE TIME: PHYSICIAN: DILLON GONG PHYSICIAN PAGER NO: ACTIVE RESOURCE: DILLON GONG REASON FOR APPOINTMENT 1. 3 MONTHS- BACK PAIN HISTORY OF PRESENT ILLNESS GENERAL: -. FALL RISK SCREENING: SCREENING : NO FALLS REPORTED IN THE LAST YEAR. PAIN SCREENING: PATIENT HAS A COMPLAINT OF ACUTE OR CHRONIC PAIN :YES LOCATION OF PAIN:LOW BACK INTENSITY OF PAIN (SCALE OF 1 TO 10):8 WHAT DOES YOUR PAIN FEEL LIKE:THROBBING DURATION:CONTINOUS, CONSTANT, ALL DAY PAIN IS INCREASED BY:ACTIVITIES PAIN IS DECREASED BY:USE OF PAIN MEDICATIONS NURSING NOTE: -. PAIN CENTER INTAKE QUESTIONS: DO YOU HAVE A HISTORY OF MRSA? :NO DO YOU TAKE A BLOOD THINNERS? :NO DO YOU HAVE ANY BLEEDING DISORDERS? :NO ANY NEW NUMBNESS OR WEAKNESS IN YOUR LEGS OR ARMS? :YES LEFT AND RIGHT ARM ANY PACEMAKER,DEFIBRILLATOR, OR DORSAL COLUMN STIMULATOR? :NO DO YOU HAVE ANY RASHES OR OPEN SORES? :NO ARE YOU ALLERGIC TO IV DYE? :NO ARE YOU DIABETIC? :NO ANY NEW PROBLEMS WITH YOUR MEDICATIONS? :NO HAVE YOU RECEIVED A VACCINE IN THE PAST 30 DAYS? :NO DO YOU PLAN TO RECEIVE A VACCINE IN THE NEXT 21 DAYS? :NO DO YOU NEED ANY PRESCRIPTION? :NO DO YOU TAKE ANY IMMUNOSUPPRESSIVE MEDICATIONS? :NO IS THERE A CHANCE YOU COULD BE ? :NO ARE YOU BREAST FEEDING? :NO HISTORY OF PRESENT ILLNESS: HERE FOR FOLLOW-UP OF CHRONIC GENERALIZED BACK PAIN AND JOINT PAIN. CONTINUES WITH HYDROCODONE LIQUID, WHICH SHE FINDS EFFECTIVE AT REDUCING PAIN AND KEEPING HER FUNCTIONAL. RATING PAIN VAS 6/10. DENIES ADVERSE EFFECTS WITH HER MEDICATIONS. PAIN IS AGGRAVATED BY COLD WEATHER. PAIN IS RELIEVED SOMEWHAT WITH MEDICATION AND WARMTH. PAIN THE PATIENT DESCRIBES THE PAIN... CURRENT MEDICATIONS TAKING SODIUM CHLORIDE 0.9 % SOLUTION DIRECTED IRRIGATION TAKING NEBULIZER - DEVICE DIRECTED DX J44.9 TAKING BUDESONIDE 0.5 MG/2ML SUSPENSION 2 ML INHALATION TWICE A DAY TAKING FORMOTEROL FUMARATE 20 MCG/2ML NEBULIZATION SOLUTION 2 ML INHALATION TWICE A DAY TAKING ALBUTEROL-IPRATROPIUM 2.5-0.5 MG/3ML SOLUTION 3 ML NEBULIZER NEEDED TAKING ASPIRIN 81 MG TABLET DELAYED RELEASE 1 TABLET ORALLY ONCE A DAY TAKING JEVITY 1.5 TRAM - LIQUID 1.5 CANS VIA G-TUBE THREE TIMES DAILY TAKING PREDNISONE 20 MG TABLET 2 TABLETS ORALLY DAILY TAKING LEVOTHYROXINE SODIUM 50 MCG TABLET 1 TABLET IN THE MORNING ON AN EMPTY STOMACH ORALLY ONCE A DAY TAKING PAROXETINE HCL 20 MG TABLET 1 TAB ORALLY DAILY TAKING PANTOPRAZOLE SODIUM 20 MG TABLET DELAYED RELEASE 1 TABLET ORALLY ONCE A DAY TAKING PRAMIPEXOLE DIHYDROCHLORIDE 0.125 MG TABLET 3 TABLETS ORALLY THREE TIMES A DAY NEEDED TAKING ATORVASTATIN CALCIUM 40 MG TABLET 1 TABLET ORALLY ONCE A DAY TAKING GABAPENTIN 600 MG TABLET 1 TABLET ORALLY BID TAKING HYDROCODONE-ACETAMINOPHEN 7.5-325 MG/15ML SOLUTION 15 ML NEEDED ORALLY FOR PAIN Q6H PRN PAIN MDD 60ML TAKING METOPROLOL TARTRATE 25 MG TABLET TAKE ONE TABLET BY MOUTH TWICE A DAY NOT-TAKING PROCHLORPERAZINE MALEATE 10 MG TABLET TAKE ONE TABLET BY MOUTH THREE TIMES A DAY ORALLY THREE TIMES A DAY NOT-TAKING VITAMIN D3 400 UNIT/ML LIQUID 2 ML ORALLY ONCE A DAY NOT-TAKING FERROUS SULFATE 75 (15 FE) MG/ML SOLUTION 5 ML VIA G-TUBE EVERY OTHER DAY MEDICATION LIST REVIEWED AND RECONCILED WITH THE PATIENT PAST MEDICAL HISTORY LOW BACK PAIN ALLERGIES CEFTIN: HIVES - ALLERGY SURGICAL HISTORY CARPAL TUNNEL RELEASE CONNOR 06/03/2009 ENDOSCOPY 04/2011 LEFT KNEE REPLACEMENT LEFT FOOT SURGERY TONSILS REMOVED NOSE SURGERY TRACHEOSTOMY 01/2017 COLONSCOPY - 1 ADENOMATOUS POLYP/TVA REMOVED; DR. NORRIS; REPEAT IN 3 YEARS 02/2017 FEEDING TUBE 02/2017 BILATERAL MODIFIED RADICAL NECK DISSECTION, TOTAL LARYNGECTOMY, TE PUNCTURE PROSTHESIS PLACEMENT, CRICOPHARYNGEAL MYOTOMY 03/20/17 LEFT TOTAL HIP, LEFT FEMUR- ORIF 10/2018 FAMILY HISTORY FATHER: , BREAST CANCER, BILATERAL MASTECTOMIES MOTHER: , LIVER CANCER, BENIGN BREAST MASSES, HTN, DM 1 BROTHER(S) , 3 SISTER(S) - HEALTHY. DENIES HX COLON OR OVARIAN CANCERS. NO CHILDREN. SOCIAL HISTORY GENERAL: TOBACCO USE ARE YOU A:FORMER SMOKER HOW LONG HAS IT BEEN SINCE YOU LAST SMOKED?1-5 YEARS LATEX QUESTIONNAIRE LATEX ALLERGY : HAVE YOU EVER DEVELOPED ANY TYPE OF REACTION AFTER HANDLING LATEX PRODUCTS SUCH RUBBER GLOVES, CONDOMS, DIAPHRAGMS, BALLOONS, SOCKS, OR UNDERWEAR?NO LATEX ALLERGY : HAVE YOU EVER DEVELOPED ANY TYPE OF REACTION DURING OR AFTER DENTAL APPOINTMENT, VAGINAL/RECTAL EXAMINATION, SURGICAL PROCEDURE, OR ANY OTHER EXPOSURE?NO LATEX RISK : HAVE YOU EVER HAD ANY DIFFICULTY BREATHING OR HIVES AFTER EATING OR HANDLING ANY FRUITS, OR VEGETABLES; SUCH KIWI, BANANAS, STONE FRUITS, OR CHESTNUTSNO LATEX RISK : DO YOU HAVE A PREVIOUS PERSONAL HISTORY OF MORE THAN NINE SURGERIES, SPINA BIFIDA, OR REPEATED CATHERIZATIONS? NO LATEX RISK : ARE YOU FREQUENTLY EXPOSED TO LATEX PRODUCTS IN YOUR OCCUPATION?NO DATE ASKED : 04/20/2020 ALCOHOL USE: NO. BMI CARE GOAL FOLLOW-UP ABOVE NORMAL BMI FOLLOW-UPGIVING ENCOURAGEMENT TO EXERCISE ALCOHOL SCREENING DID YOU HAVE A DRINK CONTAINING ALCOHOL IN THE PAST YEAR?NO POINTS0 INTERPRETATIONNEGATIVE RECREATIONAL DRUG USE DRUG USE?NO DENIES 06/25/19 CAFFEINE CAFFEINE USE?YES 2 CUPS DAILY SEXUAL HX HAD SEX IN THE LAST 12 MONTHS (VAGINAL, ORAL, OR ANAL)?NO HAVE YOU EVER HAD AN STD?NO HIV / HEP-C SCREENING HIV TEST OFFERED TO PATIENT:YES DATE OFFERED:07/01/2016 TEST ACCEPTED:NO HEP-C TEST OFFERED TO PATIENT:YES DATE OFFERED:07/01/2016 REASON:PATIENT DECLINED TEST ACCEPTED:NO REASON:PATIENT DECLINED TENRIISM [id number] RESTORATIONIST LANGUAGE LANGUAGES SPOKEN:SETSWANA EDUCATION LEVEL OF EDUCATION:NOT FINISHED HIGH SCHOOL LEARNING BARRIERS / SPECIAL NEEDS CHANGE FROM LAST VISIT?NO BARRIERS TO LEARNING?NO HEARING IMPAIRED?NO VISION IMPAIRED?YES :CORRECTIVE LENSES COGNITIVELY IMPAIRED?NO READINESS TO LEARN?YES LEARNING PREFERENCES?NO LEARNING CAPABILITIES PRESENT?YES EMOTIONAL BARRIERS?NO SPECIAL DEVICES?YES :OTHER TRACHEOSTOMY, WALKER ENGINEERING INTERN NEEDED?NO DOMESTIC VIOLENCE DO YOU FEEL SAFE IN YOUR ENVIRONMENT?YES OCCUPATION: DISABLED. DIET: G TUBE. EXERCISE: NO REGULAR EXERCISE. MARITAL STATUS: SINGLE. OTHERS AT HOME: WITH SISTER. TODAY'S VISIT 06/25/19 PATIENT DESCRIBES PAIN :ACHING, HAVE IT ALL THE TIME, STABBING, SORE FROM 0-10, WHAT LEVEL IS YOUR PAIN TODAY?6 PRECIPITATING FACTORS WALKING, MOVEMENT ALLEVIATING FACTORS WARM WEATHER, REST - WAS THE PROVIDER NOTIFIED OF ANY PERTINENT INFO?YES HAS THE PATIENT BEEN EDUCATED REGARDING HIS/HER PLAN OF CARE?YES HAS THE PATIENT BEEN EDUCATED REGARDING PAIN, THE RISK FOR PAIN, THE IMPORTANCE OF EFFECTIVE PAIN MANAGEMENT, AND THE PAIN ASSESSMENT PROCESS?YES ADVANCE DIRECTIVE ADVANCE DIRECTIVE DISCUSSED WITH PATIENT:YES HCP - ENMA EWING ([facility]) [phone] HOSPITALIZATION/MAJOR DIAGNOSTIC PROCEDURE SURG RELATED TRACH 02/09/17 PNEMONIA 03/06/17 SURGERY 03/20/2017 PNEUMONIA 03/2018 PNEUMONIA 11/2019 REVIEW OF SYSTEMS CONSTITUTIONAL: ANY RECENT FEVER NO . CHILLS NO . WEIGHT CHANGE OF UNKNOWN REASONS NO . GASTROENTEROLOGY: NEW UNEXPLAINABLE CHANGES IN BOWEL CONTROL NO . CONSTIPATION NO . GENITOURINARY: ANY NEW CHANGE IN BLADDER CONTROL? NO . NEUROLOGY: NEW ONSET DIZZINESS OR NEUROLOGICAL CHANGES NOT MENTIONED NO . NEW NUMBNESS OR PAIN PATTERNS NOT MENTIONED AND PERTINENT TO TODAY'S VISIT NO . CARDIOLOGY: NEW CHEST PRESSURE NO . PATIENT DENIES NO . RESPIRATORY: UNEXPLAINABLE COUGH NO . NEW SHORTNESS OF BREATH NO . VITAL SIGNS WT 125.8 LBS, HT 59 IN, BMI 25.41 INDEX, BP 150/67 MM HG, HR 86 /MIN, RR 18 /MIN, TEMP 98.8 F, OXYGEN SAT % 93%, SAFE IN ENV? (Y/N) YES, NA INITIALS AW 1341T.DARREN RODRIGUES. EXAMINATION GENERAL EXAMINATION: GENERALAWAKE,ALERT ,PLEASANT . PSYCHAFFECT NORMAL . LUNGS:LUNG BONE ARE CLEAR TO AUSCULTATION BILATERALLY. GOOD MOVEMENT OF AIR . HEART:S1, S2 IN A REGULAR RATE AND RHYTHM. NO SIGNIFICANT MURMURS, RUBS OR GALLOPS NOTED . 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 RECENT URINE TOXICOLOGY REVIEWED. NO UNAUTHORIZED MEDICATIONS. NO ILLICIT SUBSTANCES AND PRESCRIBED MEDICATIONS WERE PRESENT. PROCEDURE CODES FA211 ESTABILISHED PATIENT [facility] FACILITY CHARGE DISPOSITION & COMMUNICATION FOLLOW UP 3 MONTHS (REASON: MEDICATION MGMNT/MUST BRING IN MEDICATIONUTOX) ELECTRONICALLY SIGNED BY JAROD MCGARRY ON 04/24/2020 AT 02:21 PM EST DISCLAIMER : THIS IS A VISIT SUMMARY EXTRACTED FROM THE [employer] CHART. IT IS NOT A COPY OF THE [employer] PROGRESS NOTE. MTDD
== END ==
LOC: M PAIN 14:00
PROVIDERS: ATTEND Nurse Practitioner Family
DX: M54.40 Lumbago with sciatica, unspecified side (principal); Z79.891 Long term (current) use of opiate analgesic; Z87.891 Personal history of nicotine dependence; Z79.82 Long term (current) use of aspirin; Z79.52 Long term (current) use of systemic steroids; Z79.899 Other long term (current) drug therapy; Z93.0 Tracheostomy status; Z88.1 Allergy status to other antibiotic agents

== ENCOUNTER → 2020-08-06 | Outpatient (CLI) | payer MEDICARE, MEDICAID ==
--- NOTE | 2020-08-08 04:40 | ECWPNPC ---
PATIENT NAME: ERWIN GRULLON : 1965 GENDER: FEMALE VISIT DATE: 08/06/2020 DISCHARGE DATE: 08/06/20 1222 VISIT LOCKED DATE TIME: PHYSICIAN: DILLON GONG PHYSICIAN PAGER NO: ACTIVE RESOURCE: DILLON GONG REASON FOR APPOINTMENT 1. MEDICATION MANAGEMENT HISTORY OF PRESENT ILLNESS GENERAL: -. FALL RISK SCREENING: SCREENING : NO FALLS REPORTED IN THE LAST YEAR. PAIN SCREENING: PATIENT HAS A COMPLAINT OF ACUTE OR CHRONIC PAIN :YES LOCATION OF PAIN:LOW BACK INTENSITY OF PAIN (SCALE OF 1 TO 10):7 WHAT DOES YOUR PAIN FEEL LIKE:BURNING DURATION:CONTINOUS, CONSTANT, ALL DAY PAIN IS INCREASED BY:ACTIVITIES PAIN IS DECREASED BY:USE OF PAIN MEDICATIONS NURSING NOTE: -. PAIN CENTER INTAKE QUESTIONS: DO YOU HAVE A HISTORY OF MRSA? :NO DO YOU TAKE A BLOOD THINNERS? :NO DO YOU HAVE ANY BLEEDING DISORDERS? :NO ANY NEW NUMBNESS OR WEAKNESS IN YOUR LEGS OR ARMS? :YES LEFT AND RIGHT ARM ANY PACEMAKER,DEFIBRILLATOR, OR DORSAL COLUMN STIMULATOR? :NO DO YOU HAVE ANY RASHES OR OPEN SORES? :NO ARE YOU ALLERGIC TO IV DYE? :NO ARE YOU DIABETIC? :NO ANY NEW PROBLEMS WITH YOUR MEDICATIONS? :NO HAVE YOU RECEIVED A VACCINE IN THE PAST 30 DAYS? :YES 1ST COVID 08/01/2020 DO YOU PLAN TO RECEIVE A VACCINE IN THE NEXT 21 DAYS? :YES 2ND COVID 08/22/2020 DO YOU NEED ANY PRESCRIPTION? :NO DO YOU TAKE ANY IMMUNOSUPPRESSIVE MEDICATIONS? :NO IS THERE A CHANCE YOU COULD BE ? :NO ARE YOU BREAST FEEDING? :NO HISTORY OF PRESENT ILLNESS: HERE FOR FOLLOW-UP OF CHRONIC GENERALIZED BACK PAIN AND JOINT PAIN. CONTINUES WITH HYDROCODONE LIQUID, WHICH SHE FINDS EFFECTIVE AT REDUCING PAIN AND KEEPING HER FUNCTIONAL. RATING PAIN VAS 6/10. DENIES ADVERSE EFFECTS WITH HER MEDICATIONS. PAIN IS AGGRAVATED BY COLD WEATHER. PAIN IS RELIEVED SOMEWHAT WITH MEDICATION AND WARMTH. PAIN THE PATIENT DESCRIBES THE PAIN... CURRENT MEDICATIONS TAKING SODIUM CHLORIDE 0.9 % SOLUTION DIRECTED IRRIGATION TAKING NEBULIZER - DEVICE DIRECTED DX J44.9 TAKING FORMOTEROL FUMARATE 20 MCG/2ML NEBULIZATION SOLUTION 2 ML INHALATION TWICE A DAY TAKING ALBUTEROL-IPRATROPIUM 2.5-0.5 MG/3ML SOLUTION 3 ML NEBULIZER NEEDED TAKING ASPIRIN 81 MG TABLET DELAYED RELEASE 1 TABLET ORALLY ONCE A DAY TAKING JEVITY 1.5 TRAM - LIQUID 1.5 CANS VIA G-TUBE THREE TIMES DAILY TAKING PAROXETINE HCL 20 MG TABLET 1 TAB ORALLY DAILY TAKING PRAMIPEXOLE DIHYDROCHLORIDE 0.125 MG TABLET 3 TABLETS ORALLY THREE TIMES A DAY NEEDED TAKING ATORVASTATIN CALCIUM 40 MG TABLET 1 TABLET ORALLY ONCE A DAY TAKING LEVOTHYROXINE SODIUM 50 MCG TABLET 1 TABLET IN THE MORNING ON AN EMPTY STOMACH ORALLY ONCE A DAY TAKING METOPROLOL TARTRATE 25 MG TABLET TAKE ONE TABLET BY MOUTH TWICE A DAY ORALLY ONCE DAILY TAKING PANTOPRAZOLE SODIUM 20 MG TABLET DELAYED RELEASE 1 TABLET ORALLY ONCE A DAY TAKING GABAPENTIN 600 MG TABLET 1 TABLET ORALLY BID TAKING HYDROCODONE-ACETAMINOPHEN 7.5-325 MG/15ML SOLUTION 15 ML NEEDED ORALLY FOR PAIN Q6H PRN PAIN MDD 60ML NOT-TAKING BUDESONIDE 0.5 MG/2ML SUSPENSION 2 ML INHALATION TWICE A DAY NOT-TAKING PREDNISONE 20 MG TABLET 2 TABLETS ORALLY DAILY NOT-TAKING PROCHLORPERAZINE MALEATE 10 MG TABLET TAKE ONE TABLET BY MOUTH THREE TIMES A DAY ORALLY THREE TIMES A DAY NOT-TAKING VITAMIN D3 400 UNIT/ML LIQUID 2 ML ORALLY ONCE A DAY NOT-TAKING FERROUS SULFATE 75 (15 FE) MG/ML SOLUTION 5 ML VIA G-TUBE EVERY OTHER DAY MEDICATION LIST REVIEWED AND RECONCILED WITH THE PATIENT PAST MEDICAL HISTORY VITAMIN D DEFICIENCY LUMBAGO WITH SCIATICA, LEFT SIDE LUMBAGO WITH SCIATICA, RIGHT SIDE OTHER CHRONIC PAIN CHRONIC OBSTRUCTIVE PULMONARY DISEASE, UNSPECIFIED COPD TYPE ESSENTIAL HYPERTENSION ANXIETY RESTLESS LEG SYNDROME HYPOMAGNESEMIA OSTEOPENIA DIET-CONTROLLED DIABETES MELLITUS GASTROESOPHAGEAL REFLUX DISEASE, ESOPHAGITIS PRESENCE NOT SPECIFIED CHRONIC PRESCRIPTION OPIATE USE DYSLIPIDEMIA IRON DEFICIENCY ANEMIA, UNSPECIFIED IRON DEFICIENCY ANEMIA TYPE DEPRESSION, UNSPECIFIED DEPRESSION TYPE TRACHEOSTOMY CARE LARYNGEAL CANCER DYSPHAGIA, 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 FAMILY HISTORY OF BREAST CANCER IN MALE HISTORY OF FRACTURED RIB AVASCULAR NECROSIS OF BONE OF LEFT HIP CIGARETTE NICOTINE DEPENDENCE IN REMISSION HISTORY OF IRON DEFICIENCY ANEMIA G TUBE FEEDINGS STATUS POST LEFT HIP REPLACEMENT LACK OF APPETITE COPD EXACERBATION 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 HYPOTHYROIDISM ELEVATED HEMOGLOBIN ALLERGIES CEFTIN: HIVES - ALLERGY SOCIAL HISTORY GENERAL: TOBACCO USE ARE YOU A:FORMER SMOKER HOW LONG HAS IT BEEN SINCE YOU LAST SMOKED?5-10 YEARS LATEX QUESTIONNAIRE LATEX ALLERGY : HAVE YOU EVER DEVELOPED ANY TYPE OF REACTION AFTER HANDLING LATEX PRODUCTS SUCH RUBBER GLOVES, CONDOMS, DIAPHRAGMS, BALLOONS, SOCKS, OR UNDERWEAR?NO LATEX ALLERGY : HAVE YOU EVER DEVELOPED ANY TYPE OF REACTION DURING OR AFTER DENTAL APPOINTMENT, VAGINAL/RECTAL EXAMINATION, SURGICAL PROCEDURE, OR ANY OTHER EXPOSURE?NO LATEX RISK : HAVE YOU EVER HAD ANY DIFFICULTY BREATHING OR HIVES AFTER EATING OR HANDLING ANY FRUITS, OR VEGETABLES; SUCH KIWI, BANANAS, STONE FRUITS, OR CHESTNUTSNO LATEX RISK : DO YOU HAVE A PREVIOUS PERSONAL HISTORY OF MORE THAN NINE SURGERIES, SPINA BIFIDA, OR REPEATED CATHERIZATIONS? NO LATEX RISK : ARE YOU FREQUENTLY EXPOSED TO LATEX PRODUCTS IN YOUR OCCUPATION?NO DATE ASKED : 08/06/2020 ALCOHOL USE: NO. RECREATIONAL DRUG USE DRUG USE?NO LANGUAGE LANGUAGES SPOKEN:[place] LEARNING BARRIERS / SPECIAL NEEDS CHANGE FROM LAST VISIT?NO BARRIERS TO LEARNING?NO HEARING IMPAIRED?NO VISION IMPAIRED?YES :CORRECTIVE LENSES COGNITIVELY IMPAIRED?NO READINESS TO LEARN?YES LEARNING PREFERENCES?NO LEARNING CAPABILITIES PRESENT?YES EMOTIONAL BARRIERS?NO SPECIAL DEVICES?YES :OTHER TRACHEOSTOMY, WALKER SCREEN CLEANER NEEDED?NO REVIEW OF SYSTEMS CONSTITUTIONAL: ANY RECENT FEVER NO . CHILLS NO . WEIGHT CHANGE OF UNKNOWN REASONS NO . GASTROENTEROLOGY: NEW UNEXPLAINABLE CHANGES IN BOWEL CONTROL NO . CONSTIPATION NO . GENITOURINARY: ANY NEW CHANGE IN BLADDER CONTROL? NO . NEUROLOGY: NEW ONSET DIZZINESS OR NEUROLOGICAL CHANGES NOT MENTIONED NO . NEW NUMBNESS OR PAIN PATTERNS NOT MENTIONED AND PERTINENT TO TODAY'S VISIT NO . CARDIOLOGY: NEW CHEST PRESSURE NO . PATIENT DENIES NO . RESPIRATORY: UNEXPLAINABLE COUGH NO . NEW SHORTNESS OF BREATH NO . VITAL SIGNS WT 122.6 LBS, HT 59 IN, BMI 24.76 INDEX, BP 170/71 MM HG, REPEAT BP 157/69 MM HG, HR 72 /MIN, RR 18 /MIN, TEMP 98.0 F, OXYGEN SAT % 99%, SAFE IN ENV? (Y/N) YES, NA INITIALS AW 1148T.DARREN RODRIGUES. EXAMINATION GENERAL EXAMINATION: GENERALAWAKE,ALERT ,PLEASANT . PSYCHAFFECT NORMAL . LUNGS:LUNG BONE ARE CLEAR TO AUSCULTATION BILATERALLY. GOOD MOVEMENT OF AIR . HEART:S1, S2 IN A REGULAR RATE AND RHYTHM. NO SIGNIFICANT MURMURS, RUBS OR GALLOPS NOTED . 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 BRINGS IN MEDICATIONS WHICH IS APPROPRIATE FOR WHAT WAS DISPENSED. RECENT URINE TOXICOLOGY REVIEWED. NO UNAUTHORIZED MEDICATIONS. NO ILLICIT SUBSTANCES AND PRESCRIBED MEDICATIONS WERE PRESENT. , RISKS OF NARCOTIC/OPIOD MEDICATIONS INCLUDES BUT IS NOT LIMITED TO RISK OF DEPENDANCE/DEVELOPMENT OF ADDICTION, MOOD DISTURBANCE AND DEPRESSION, OSTEOPOROSIS, HORMONAL AND LABIDAL CHANGES, RESPIRATORY DEPRESSION AND . PATIENT IS ADVISED NOT TO DRIVE OR DRINK ALCOHOL WHILE ON THESE MEDICATIONS. PROCEDURE CODES FA211 ESTABILISHED PATIENT [facility] FACILITY CHARGE DISPOSITION & COMMUNICATION FOLLOW UP 3 MONTHS (REASON: MED MGMNT/REVIEW UTOX) ELECTRONICALLY SIGNED BY JAROD MCGARRY ON 08/07/2020 AT 03:41 PM EDT DISCLAIMER : THIS IS A VISIT SUMMARY EXTRACTED FROM THE [employer] CHART. IT IS NOT A COPY OF THE [employer] PROGRESS NOTE. MTDShola
== END ==
LOC: M PAIN 11:30
PROVIDERS: ATTEND Nurse Practitioner Family
DX: M54.41 Lumbago with sciatica, right side (principal); E55.9 Vitamin D deficiency, unspecified; M54.42 Lumbago with sciatica, left side; G89.29 Other chronic pain; J44.9 Chronic obstructive pulmonary disease, unspecified; I10 Essential (primary) hypertension; F41.9 Anxiety disorder, unspecified; G25.81 Restless legs syndrome; M85.80 Other specified disorders of bone density and structure, unspecified site; E11.9 Type 2 diabetes mellitus without complications; K21.00 Gastro-esophageal reflux disease with esophagitis, without bleeding; E78.5 Hyperlipidemia, unspecified; D50.9 Iron deficiency anemia, unspecified; F32.9 Major depressive disorder, single episode, unspecified; Z93.0 Tracheostomy status; R13.10 Dysphagia, unspecified; M16.11 Unilateral primary osteoarthritis, right hip; E03.9 Hypothyroidism, unspecified; Z87.891 Personal history of nicotine dependence; Z79.891 Long term (current) use of opiate analgesic; Z79.82 Long term (current) use of aspirin; Z79.899 Other long term (current) drug therapy; Z88.1 Allergy status to other antibiotic agents; Z85.21 Personal history of malignant neoplasm of larynx
CPT/HCPCS: G0463 ×2

== ENCOUNTER → 2021-01-22 | Outpatient (CLI) | payer MEDICARE, MEDICAID ==
[~2021-01-22] MED LIST changes: -KLOR10TA76 PO; -KLOR20TA42 PO; +POTA-136 PO; +POTA-141 PO
== END ==
LOC: M PAIN 11:15
PROVIDERS: ATTEND Nurse Practitioner Family
DX: M54.40 Lumbago with sciatica, unspecified side (principal); G89.29 Other chronic pain; E03.9 Hypothyroidism, unspecified; J44.9 Chronic obstructive pulmonary disease, unspecified; G25.81 Restless legs syndrome; K21.9 Gastro-esophageal reflux disease without esophagitis; Z86.59 Personal history of other mental and behavioral disorders; Z87.891 Personal history of nicotine dependence; Z88.1 Allergy status to other antibiotic agents; Z79.82 Long term (current) use of aspirin; Z79.899 Other long term (current) drug therapy
CPT/HCPCS: G0463 ×2

== ENCOUNTER → 2021-04-05 | Outpatient (CLI) | payer MEDICARE, MEDICAID ==
[2021-04-05 15:26] LABS: HEMATOCRIT 36.9 % (36.0-47.0); HEMOGLOBIN 11.8 g/dl (12.0-15.5); MEAN CORPUSCULAR HEMOGLOBIN 28.9 pg (27.0-33.0); MEAN CORPUSCULAR VOLUME 90.4 fl (80.0-96.0); PLATELET COUNT, AUTOMATED 245 10^3/uL (150-450); RED BLOOD COUNT 4.08 10^6/uL (4.00-5.40); WHITE BLOOD COUNT 6.4 10^3/uL (4.0-10.0)
[2021-04-05 15:43] LABS: HEMOGLOBIN A1c 5.7 %
[2021-04-05 15:57] LABS: BLOOD UREA NITROGEN 17 MG/DL (7-18); CALCIUM LEVEL 9.3 MG/DL (8.5-10.1); CARBON DIOXIDE LEVEL 27 MEQ/L (21-32); CHLORIDE LEVEL 100 MEQ/L (98-107); CHOLESTEROL LEVEL 211 MG/DL (<200); CHOLESTEROL RISK RATIO 3.057 (<5); CREATININE FOR GFR 0.62 MG/DL (0.55-1.30); GLOMERULAR FILTRATION RATE > 60.0 (>51); GLUCOSE, FASTING 78 MG/DL (70-100); HDL CHOLESTEROL 69 MG/DL (>40); LDL CHOLESTEROL 117 MG/DL (<100); NON-HDL-C 142 MG/DL; POTASSIUM SERUM 4.6 MEQ/L (3.5-5.1); SODIUM LEVEL 136 MEQ/L (136-145); TRIGLYCERIDES LEVEL 127 MG/DL (<150)
== END ==
LOC: M PLALAB 13:57
PROVIDERS: ATTEND Family Medicine
DX: E03.9 Hypothyroidism, unspecified (principal); I10 Essential (primary) hypertension; D50.9 Iron deficiency anemia, unspecified; E11.9 Type 2 diabetes mellitus without complications; E78.5 Hyperlipidemia, unspecified

== ENCOUNTER → 2021-04-22 | Outpatient (CLI) | payer MEDICARE, MEDICAID | LOC: M PAIN 11:00 | PROVIDERS: ATTEND Anesthesiology | DX: M54.50 Low back pain, unspecified (principal); M51.16 Intervertebral disc disorders with radiculopathy, lumbar region; E11.9 Type 2 diabetes mellitus without complications; R13.10 Dysphagia, unspecified; Z93.0 Tracheostomy status; F32.A Depression, unspecified; F41.9 Anxiety disorder, unspecified; E03.9 Hypothyroidism, unspecified; J44.9 Chronic obstructive pulmonary disease, unspecified; G25.81 Restless legs syndrome; K21.9 Gastro-esophageal reflux disease without esophagitis; Z87.891 Personal history of nicotine dependence; Z79.82 Long term (current) use of aspirin; Z79.891 Long term (current) use of opiate analgesic; Z79.899 Other long term (current) drug therapy; Z79.52 Long term (current) use of systemic steroids; Z93.1 Gastrostomy status; Z85.21 Personal history of malignant neoplasm of larynx ==

== ENCOUNTER → 2021-11-10 | Outpatient (CLI) | payer MEDICARE, MEDICAID | LOC: M PAIN 11:30 | PROVIDERS: ATTEND Nurse Practitioner Family | DX: M54.50 Low back pain, unspecified (principal); Z79.891 Long term (current) use of opiate analgesic; E11.9 Type 2 diabetes mellitus without complications; R13.10 Dysphagia, unspecified; Z93.0 Tracheostomy status; F32.A Depression, unspecified; F41.9 Anxiety disorder, unspecified; E03.9 Hypothyroidism, unspecified; J44.9 Chronic obstructive pulmonary disease, unspecified; G25.81 Restless legs syndrome; K21.9 Gastro-esophageal reflux disease without esophagitis; Z87.891 Personal history of nicotine dependence; Z85.21 Personal history of malignant neoplasm of larynx; Z79.82 Long term (current) use of aspirin; Z79.890 Hormone replacement therapy; Z79.52 Long term (current) use of systemic steroids; Z79.899 Other long term (current) drug therapy; Z93.1 Gastrostomy status; Z88.1 Allergy status to other antibiotic agents ==

== ENCOUNTER → 2022-02-22 | Outpatient (CLI) | payer MEDICARE, MEDICAID | LOC: M PAIN 11:15 | PROVIDERS: ATTEND Nurse Practitioner Family | DX: M54.50 Low back pain, unspecified (principal); E11.9 Type 2 diabetes mellitus without complications; R13.10 Dysphagia, unspecified; F32.A Depression, unspecified; F41.9 Anxiety disorder, unspecified; E03.9 Hypothyroidism, unspecified; J44.9 Chronic obstructive pulmonary disease, unspecified; G25.81 Restless legs syndrome; K21.9 Gastro-esophageal reflux disease without esophagitis; Z87.891 Personal history of nicotine dependence; Z93.1 Gastrostomy status; Z79.82 Long term (current) use of aspirin; Z79.899 Other long term (current) drug therapy; Z79.890 Hormone replacement therapy; Z79.891 Long term (current) use of opiate analgesic; Z88.1 Allergy status to other antibiotic agents ==

== ENCOUNTER → 2022-06-14 | Outpatient (CLI) | payer MEDICARE, MEDICAID | LOC: M PAIN 11:00 | PROVIDERS: ATTEND Nurse Practitioner Family | DX: M54.50 Low back pain, unspecified (principal); G89.29 Other chronic pain; E03.9 Hypothyroidism, unspecified; J44.9 Chronic obstructive pulmonary disease, unspecified; G25.81 Restless legs syndrome; K21.9 Gastro-esophageal reflux disease without esophagitis; Z86.59 Personal history of other mental and behavioral disorders; Z87.891 Personal history of nicotine dependence; Z88.1 Allergy status to other antibiotic agents; Z79.82 Long term (current) use of aspirin; Z79.890 Hormone replacement therapy; Z79.899 Other long term (current) drug therapy ==

== ENCOUNTER → 2022-09-30 | Outpatient (CLI) | payer MEDICARE, MEDICAID | LOC: M PAIN 10:00 | PROVIDERS: ATTEND Nurse Practitioner Family | DX: M51.16 Intervertebral disc disorders with radiculopathy, lumbar region (principal); G89.29 Other chronic pain; E11.9 Type 2 diabetes mellitus without complications; D50.9 Iron deficiency anemia, unspecified; R13.10 Dysphagia, unspecified; F32.A Depression, unspecified; F41.9 Anxiety disorder, unspecified; E03.9 Hypothyroidism, unspecified; J44.9 Chronic obstructive pulmonary disease, unspecified; K21.9 Gastro-esophageal reflux disease without esophagitis; Z87.891 Personal history of nicotine dependence; Z88.1 Allergy status to other antibiotic agents; Z93.0 Tracheostomy status; Z79.82 Long term (current) use of aspirin; Z79.890 Hormone replacement therapy; Z79.899 Other long term (current) drug therapy; Z79.891 Long term (current) use of opiate analgesic; Z85.21 Personal history of malignant neoplasm of larynx ==

== ENCOUNTER → 2023-01-17 | Outpatient (CLI) | payer MEDICARE, MEDICAID | LOC: M PAIN 14:30 | PROVIDERS: ATTEND Nurse Practitioner Family | DX: M51.16 Intervertebral disc disorders with radiculopathy, lumbar region (principal); G89.29 Other chronic pain; Z85.21 Personal history of malignant neoplasm of larynx; Z80.3 Family history of malignant neoplasm of breast; Z80.0 Family history of malignant neoplasm of digestive organs; Z87.891 Personal history of nicotine dependence; Z88.1 Allergy status to other antibiotic agents; Z79.82 Long term (current) use of aspirin; Z79.899 Other long term (current) drug therapy ==

== ENCOUNTER → 2023-04-18 | Outpatient (CLI) | payer MEDICARE, MEDICAID | LOC: M PAIN 11:45 | PROVIDERS: ATTEND Nurse Practitioner Family | DX: M51.16 Intervertebral disc disorders with radiculopathy, lumbar region (principal); Z79.891 Long term (current) use of opiate analgesic; G89.29 Other chronic pain; E11.9 Type 2 diabetes mellitus without complications; R13.10 Dysphagia, unspecified; F32.A Depression, unspecified; F41.9 Anxiety disorder, unspecified; E03.9 Hypothyroidism, unspecified; J44.9 Chronic obstructive pulmonary disease, unspecified; K21.9 Gastro-esophageal reflux disease without esophagitis; G25.81 Restless legs syndrome; Z87.891 Personal history of nicotine dependence; Z93.0 Tracheostomy status; Z85.21 Personal history of malignant neoplasm of larynx; Z79.890 Hormone replacement therapy; Z79.899 Other long term (current) drug therapy; Z88.1 Allergy status to other antibiotic agents ==

== ENCOUNTER → 2023-07-18 | Outpatient (CLI) | payer MEDICARE, MEDICAID | LOC: M PAIN 11:15 | PROVIDERS: ATTEND Nurse Practitioner Family | DX: M51.16 Intervertebral disc disorders with radiculopathy, lumbar region (principal); G89.29 Other chronic pain; R13.10 Dysphagia, unspecified; E11.9 Type 2 diabetes mellitus without complications; F32.A Depression, unspecified; F41.9 Anxiety disorder, unspecified; E03.9 Hypothyroidism, unspecified; J44.9 Chronic obstructive pulmonary disease, unspecified; K21.9 Gastro-esophageal reflux disease without esophagitis; Z87.891 Personal history of nicotine dependence; Z93.1 Gastrostomy status; Z79.82 Long term (current) use of aspirin; Z79.891 Long term (current) use of opiate analgesic; Z79.899 Other long term (current) drug therapy; Z79.890 Hormone replacement therapy; Z88.1 Allergy status to other antibiotic agents ==

== ENCOUNTER → 2023-08-21 | Outpatient (CLI) | payer MEDICARE, MEDICAID | LOC: M PAIN 10:45 | PROVIDERS: ATTEND Nurse Practitioner Family | DX: M51.16 Intervertebral disc disorders with radiculopathy, lumbar region (principal); Z79.891 Long term (current) use of opiate analgesic; G89.29 Other chronic pain; E11.9 Type 2 diabetes mellitus without complications; R13.10 Dysphagia, unspecified; F32.A Depression, unspecified; F41.9 Anxiety disorder, unspecified; E03.9 Hypothyroidism, unspecified; J44.9 Chronic obstructive pulmonary disease, unspecified; G25.81 Restless legs syndrome; K21.9 Gastro-esophageal reflux disease without esophagitis; Z87.891 Personal history of nicotine dependence; Z79.899 Other long term (current) drug therapy; Z93.1 Gastrostomy status; Z88.1 Allergy status to other antibiotic agents ==

== ENCOUNTER → 2023-10-09 | Outpatient (CLI) | payer MEDICARE, MEDICAID ==
[~2023-10-09] MED LIST changes: +GABA-1490 PO; -GABA600T4 PO
== END ==
LOC: M PAIN 11:00
PROVIDERS: ATTEND Nurse Practitioner Family
DX: M51.16 Intervertebral disc disorders with radiculopathy, lumbar region (principal); G89.29 Other chronic pain; E11.9 Type 2 diabetes mellitus without complications; R13.10 Dysphagia, unspecified; F32.A Depression, unspecified; F41.9 Anxiety disorder, unspecified; M54.50 Low back pain, unspecified; E03.9 Hypothyroidism, unspecified; J44.9 Chronic obstructive pulmonary disease, unspecified; K21.9 Gastro-esophageal reflux disease without esophagitis; Z87.891 Personal history of nicotine dependence; Z79.890 Hormone replacement therapy; Z79.899 Other long term (current) drug therapy; Z79.891 Long term (current) use of opiate analgesic; Z88.1 Allergy status to other antibiotic agents